=== PATIENT | male | born 1970 | race Caucasian/White ===

== ENCOUNTER 2020-03-28 06:48 | Outpatient (NON) | payer BC, SELFPAY ==
[2020-03-29 21:43] LABS: SARS-CoV-2 RNA PCR Positive
== END 2020-03-28 06:49 ==
LOC: ANHCOVIDDT 06:59
PROVIDERS: PCP Family Medicine; Visit Provider Nurse Practitioner Family
DX: U07.1 COVID-19 (principal)
CPT/HCPCS: 87635; C9803; U0003

== ENCOUNTER 2020-03-29 15:01 | Emergency (ER) | payer BC, SELFPAY ==
--- NOTE | ~2020-03-29 | CT_ITS ---
EXAMINATION: CTA chest PE protocol EXAM DATE: 03/29/2020 18:39 INDICATION: Shortness of breath and elevated d-dimer. TECHNIQUE: Spiral CTA of the chest (pulmonary arteries) was performed with 100 cc Omnipaque 350 intr avenous contrast injection. Images were acquired during the pulmonary arterial phase. Coronal maxi mum intensity projection 3D-reconstructions were created by the technologist on dedicated workstation . Axial, coronal and sagittal reformatted images were reviewed. The dose-length product (DLP) for t his examination was 416.89 mGy-cm. The exposure was tailored according to patient size (auto mA exp osure control), and iterative reconstruction (ASIR) was used as additional dose reduction technique. There is no prior study for comparison. FINDINGS: There are no pulmonary emboli in the 1st through 3rd order (central and interlobar) pulmon adrian arteries. Some loss of attenuation in the segmental pulmonary arteries due to respiratory motion , but no intraluminal filling defects suspected. No thoracic aortic dissection. There are patchy b ilateral groundglass opacities most consistent with acute infectious process. Could be acute lung inj ury from SARS-CoV-2 There are no pleural or pericardial effusions. Tracheobronchial tree is patent . There is no mediastinal, hilar or axillary lymphadenopathy. There is no pneumothorax. Heart n ormal in size. No evidence of coronary arterial calcification. Upper abdomen is unremarkable. Th ere is thoracic spondylosis without osteoblastic or osteolytic lesions identified. Old rib fractures. IMPRESSION: 1. Limited segmental evaluation, but no pulmonary emboli are suspected. 2. Patchy bilateral groundglass airspace disease, appearance suspicious for COVID-19. Reviewed, dictated and finalized at location A. IMPRESSION: 1. Limited segmental evaluation, but no pulmonary emboli are suspected. 2. Patchy bilateral groundglass airspace disease, appearance suspicious for CO VID-19.
--- NOTE | ~2020-03-29 | XR_ITS ---
XR chest 1V portable 03/29/2020 16:06 Indication: Cough and fever. Headache. Procedure: AP portable chest Comparison: Comparison to multiple prior studies sequentially, with oldest reviewed study dated 08/18. Findings: Linear infiltrates of the left lower lung zone. Heart size upper normal. Low lung volumes. Right lung clear. No pneumothorax or pleural effusion. Impression: 1: Linear left basilar infiltrates, atelectasis versus pneumonia. Reviewed, dictated and finalized at location B. Impression: 1: Linear left basilar infiltrates, atelectasis versus pneumonia.
[2020-03-29 15:13] VITALS: BP 123/82; PULSE 106; RESP 18; TEMP 36.7; O2SAT 98
--- NOTE | 2020-03-29 15:45 | ECG_ITS ---
Measurements Intervals [place] Rate: 105 P: 0 LA: 100 QRS: -25 QRSD: 78 T: 31 QT: 309 QTc: 408 Interpretive Statements SINUS TACHYCARDIA WITH SHORT LA INTERVAL RSR' IN V1 OR V2, PROBABLY NORMAL VARIANT ABNORMAL ECG Electronically Signed On 03-30-2020 6:58:23 CDT by Darnell Joe D.O.
--- NOTE | 2020-03-29 15:46 | ED.GENADULT ---
HPI - General Adult General Chief complaint: Unspecified Stated complaint: COVID Symptoms, Cough Time Seen by Provider: 03/29/20 15:28 History of Present Illness HPI narrative: Patient is a 50-year-old male complaining of shortness of breath, fever, body aches started approximately 4 days ago. Patient states that he is been exposed to Covid and he was recently tested pending results. Patient states that his mother tested positive for Covid approximately 1 week ago. Related Data Allergies Allergy/AdvReac Type Severity Reaction Status Date / Time No Known Allergies Allergy Verified 03/16/20 08:54 Review of Systems Review of Systems: All systems reviewed & are unremarkable except as noted in HPI and below Constitutional: Constitutional: Denies body ache(s), Denies chills, Denies excessive sweating, Denies fatigue, Denies fever(s), Denies headache(s), Denies lethargy, Denies malaise, Denies weakness and Denies weight loss Eyes: Eyes: Denies blurry vision, Denies change in vision and Denies loss of vision ENT: Denies dizziness, Denies ear discharge, Denies headache(s), Denies lip swelling, Denies epistaxis, Denies nasal congestion, Denies neck pain, Denies throat swelling and Denies tongue swelling Cardiovascular: Cardiovascular: Denies chest pain, Denies chest pain at rest, Denies chest pain with activity, Denies diaphoresis, Denies rapid heart rate, Denies edema, Denies irregular heart rhythm, Denies lightheadedness, Denies palpitations, Denies dyspnea and Denies dyspnea on exertion Respiratory: Respiratory: Denies hemoptysis Gastrointestinal: Gastrointestinal: Denies abdominal pain, Denies melena, Denies hematochezia, Denies diarrhea, Denies nausea, Denies vomiting and Denies hematemesis Musculoskeletal: Musculoskeletal: Denies abnormal gait, Denies deformity, Denies joint swelling, Denies limited range of motion, Denies neck pain and Denies numbness Neurologic: Denies Abnormal speech present, Denies abnormal gait, Denies confusion, Denies dizziness, Denies headache(s), Denies focal weakness, Denies loss of vision, Denies numbness, Denies Other visual disturbances, Denies Sensory deficit (Neuro) and Denies weakness Psychiatric: Psychiatric: Denies confusion, Denies depression, Denies auditory hallucinations, Denies homicidal ideation and Denies suicidal ideation Endocrine: Endocrine: Denies cold intolerance, Denies excessive sweating, Denies fatigue, Denies heat intolerance and Denies palpitations Hematologic/Lymphatic: Hematologic/Lymphatic: Denies easy bleeding and Denies easy bruising Allergic/Immunologic: Allergic/Immunologic: Denies lip swelling, Denies throat swelling and Denies tongue swelling PMFSH Family History Family History Mother Family history of obesity Hypertension Family history of elevated blood lipids Family history of diabetes mellitus in first degree relative Family history of hyperthyroidism Diabetes mellitus Cerebrovascular accident Father Hypertension Family history of elevated blood lipids Other Carcinoma of colon Social History Social History Smoking status: Never smoker Second hand tobacco smoke exposure: No Alcohol intake: never Substance use: never Substance use type: does not use Gender identity (if verbalized by the patient): Male Exam Const: General: cooperative, healthy appearing, comfortable, no acute distress, well developed, alert and awake; No confusion Orientation/consciousness: oriented to person, oriented to place, oriented to time, patient oriented x3 and No confusion Limitations: no limitations HENMT: Head: normal to inspection, normocephalic and atraumatic Ears: hearing grossly normal bilaterally, TM normal on the right and TM normal on the left General nose exam: Normal external nose present, Normal nares present and No nasal discharge prese
[2020-03-29 16:23] LABS: Basophils Percent Auto 0.5 % (0.2-1.2); Hematocrit 43.7 % (42.0-52.0); Hemoglobin 14.7 g/dL (14.0-18.0); Immature Granulocyte Absolute 0.01 K/mm3 (0.00-0.031); Immature Granulocyte Percent A 0.2 % (0-0.5); Lymphocytes Absolute Auto 1.08 K/mm3 (0.9-3.2); Lymphocytes Percent Auto 25.1 % (18.3-44.2); Mean Corpuscular HGB Conc 33.6 g/dl (32-36); Mean Corpuscular Hemoglobin 32.2 pg (26-34); Mean Corpuscular Volume 95.6 fl (80-100); Mean Platelet Volume 10.9 fl (7.4-10.4); Monocytes Absolute Auto 0.5 K/mm3 (0.1-0.6); Monocytes Percent Auto 10.7 % (2.6-8.5); Neutrophils Absolute Auto 2.7 K/mm3 (1.3-6.7); Neutrophils Percent Auto 63.5 % (45.5-73.1); Platelet Count Result 162 k/mm3 (150-375); Red Blood Count 4.57 M/mm3 (4.6-6.20); Red Cell Distribution Width 12.2 % (11.5-14.5); White Blood Count 4.3 K/mm3 (4.5-10.0)
[2020-03-29 16:36] LABS: Alanine Aminotransferase 24 U/L (4-50); Albumin Level 4.2 g/dL (3.5-5.1); Alkaline Phosphatase 76 U/L (38-126); Anion Gap 13 mmol/L (8-16); Aspartate Amino Transferase 43 U/L (17-59); Bilirubin,Total 0.4 mg/dL (0.2-1.3); Blood Urea Nitrogen 26 mg/dL (9-20); Calcium 8.9 mg/dL (8.4-10.2); Carbon Dioxide 26 mmol/L (22-30); Chloride 100 mmol/L (98-107); Estimated CRCL calculation 58 ml/min; Estimated Glomerular Filt Rate 40; Glucose 114 mg/dL (75-110); Potassium 4.4 mmol/L (3.4-5.0); Sodium 139 mmol/L (137-145)
[2020-03-29 16:41] LABS: D Dimer 0.64 ug/mL (<0.48)
[2020-03-29 16:48] LABS: Troponin I < 0.012 ng/mL (0.000-0.034)
[2020-03-29 18:00] VITALS: BP 110/78; PULSE 70; RESP 16; O2SAT 98
[2020-03-29 19:35] VITALS: BP 117/73; PULSE 94; RESP 16; TEMP 36.8; O2SAT 99
[2020-03-29] MEDS: LACTATED RINGERS 1,000 ML 999 ML IV CONT (19:35)
[2020-03-29 20:26] VITALS: BP 128/73; PULSE 87; RESP 16; TEMP 36.9; O2SAT 100
== END 2020-03-29 20:36 | disposition home or self-care (01) ==
PROVIDERS: Emergency Provider Emergency Medicine; PCP Family Medicine
DX: U07.1 COVID-19 (principal); J12.89 Other viral pneumonia
CPT/HCPCS: 36415; 71045; 71275; 80053; 84484; 85025; 85380; 93005; 96360; 99284; J7120; Q9967

== ENCOUNTER 2020-04-04 17:22 | Inpatient (IN) | payer BC, SELFPAY ==
[2020-04-04] VITALS (26 sets, daily range): BP systolic 101–147; BP diastolic 61–86; PULSE 86–130; RESP 21–40; TEMP 37.9; O2SAT 67–97; BMI 31.4
--- NOTE | ~2020-04-04 | XR_ITS ---
EXAMINATION: XR chest 1V portable INDICATION: Shortness of breath, COVID 19 pneumonia TECHNIQUE: Portable AP chest at 0519 hours COMPARISON: 04/09/2020 FINDINGS: Diffuse opacities persist in all lung zones with interval worsening. A right upper extremit y PICC ends with its tip in the proximal right atrium. There is no pleural effusion or pneumothorax. The cardiomediastinal silhouette is stable. Healed left-sided rib fractures are again noted. IMPRESSION: 1. Diffuse lung disease with interval worsening, consistent with pneumonia and/or pulmonary edema and /or acute respiratory distress syndrome (ARDS). Reviewed, dictated and finalized at location A. TRUCK DRIVER IMPRESSION: 1. Diffuse lung disease with interval worsening, consistent with pneumonia and/ or pulmonary edema and/or acute respiratory distress syndrome (ARDS).
--- NOTE | ~2020-04-04 | CT_ITS ---
EXAMINATION: CTA chest PE protocol DATE: 04/04/2020 19:45 CDT INDICATION: Elevated d-dimer. Shortness of breath. TECHNIQUE: Computed tomography angiography (CTA) of the chest was performed with 100 mL Omnipaque-350 intravenous contrast timed to evaluate the pulmonary arteries. Coronal maximum intensity projection 3D-reconstructions were created by the technologist. The dose-length product was 485.90 mGy-cm. COMPARISON: CTA chest dated 03/29/2020. FINDINGS: Study significantly limited by motion artifact and timing of contrast bolus. No large centr al pulmonary embolism. Heart size normal. No significant pleural or pericardial effusion. Extensive patchy bilateral groundglass attenuation with mosaic pattern. Findings have significantly p rogressed since prior examination, consistent with pneumonia. No evidence for aortic aneurysm or diss ection. Mild mediastinal lymphadenopathy, likely reactive. The upper abdomen is unremarkable. Gallbla dder is present. IMPRESSION: 1. Significant progression of extensive patchy bilateral groundglass attenuation with mosaic pattern, consistent with pneumonia. 2: Study limited for evaluation of peripheral pulmonary embolism due to motion and contrast bolus ti jose. No large central pulmonary emboli. 3: Mediastinal lymphadenopathy, likely reactive. Reviewed, dictated and finalized at location A. IMPRESSION: 1. Significant progression of extensive patchy bilateral groundglass attenuatio n with mosaic pattern, consistent with pneumonia. 2: Study limited for evaluation of peripheral pulmonary embolism due to motion and contrast bolus timing. No large central pulmonary emboli. 3: Mediastinal lymphadenopathy, likely reactive.
--- NOTE | ~2020-04-04 | XR_ITS ---
EXAMINATION: XR chest 1V portable INDICATION: COVID 19 PNEUMONIA, SHORTNESS OF BREATH TECHNIQUE: Portable AP chest at 0509 hours COMPARISON: 04/06/2020 FINDINGS: Diffuse bilateral airspace opacities, worst in the left mid and lower lung zones, persist w ithout significant change. There is no pleural effusion or pneumothorax. The cardiomediastinal silhou ette is stable. Healed bilateral rib fractures are noted. IMPRESSION: 1. Unchanged diffuse lung disease, consistent with pneumonia. Reviewed, dictated and finalized at location A.
--- NOTE | ~2020-04-04 | XR_ITS ---
EXAMINATION: XR chest 1V portable DATE: 04/24/2020 05:36 INDICATION: COVID-19 pneumonia. TECHNIQUE: A single frontal view of the chest was obtained. COMPARISON: Chest single view 04/23/2020 FINDINGS: There are patchy airspace opacities throughout the lungs bilaterally. No pleural effusion o r pneumothorax. The heart size is normal. The endotracheal tube tip is 4.8 cm above the jian. The n asogastric tube tip is in the stomach. A right upper extremity peripherally inserted central venous c atheter (PICC) is seen with tip at the superior cavoatrial junction. There are multiple old healed ri b fractures bilaterally. IMPRESSION: 1. Stable diffuse lung disease, consistent with pneumonia versus acute respiratory distress syndrome (ARDS). Reviewed, dictated and finalized at location A. ENE WASHER OPERATOR IMPRESSION: 1. Stable diffuse lung disease, consistent with pneumonia versus acute respirat ory distress syndrome (ARDS).
--- NOTE | ~2020-04-04 | XR_ITS ---
EXAMINATION: XR chest 1V portable EXAM DATE: 04/28/2020 00:42 INDICATION: low oxygenation . Respiratory failure. TECHNIQUE: Portable AP frontal chest x-ray was obtained. Comparison is made to prior examination from 04/27/2020. FINDINGS: Endotracheal tube tip is 5 centimeters above the jian (ideal range is between 2 to 5 cm). There is a nasogastric tube seen with tip collimated off the study, but below the left hemidiaphrag m. There is a right-sided PICC line with tip projecting over the cavoatrial junction. Extensive bilateral ill-defined acute airspace disease with regions of confluence, appearance is cons istent with COVID-19 pneumonia. There are no sizable pleural effusions. There is no pneumothorax s uspected. The cardiomediastinal silhouette is prominent but magnified on this AP technique. The b ones and soft tissues are unremarkable. There is no significant interval change compared to prior exam. IMPRESSION: 1. Line(s) and tube(s) in position. 2. Extensive airspace disease unchanged. Reviewed, dictated and finalized at location A. CTOR SAFETY
--- NOTE | ~2020-04-04 | XR_ITS ---
EXAMINATION: XR chest 1V portable EXAM DATE: 04/22/2020 17:19 INDICATION: low oxygen saturation . COVID-19. TECHNIQUE: Portable AP frontal chest x-ray was obtained. Comparison is made to prior examination from yesterday. FINDINGS: Endotracheal tube tip is 5 centimeters above the jian (ideal range is between 2 to 5 cm). There is a right-sided PICC line with tip projecting over the cavoatrial junction. There is a nasog astric tube seen with tip collimated off the study, but below the left hemidiaphragm. Diffuse bilateral ill-defined acute airspace disease. Appearance is consistent with COVID-19. There a re no sizable pleural effusions. There is no pneumothorax suspected. The cardiomediastinal silhou ette is prominent but magnified on this AP technique. Old bilateral rib fractures. There is no significant interval change compared to prior exam. IMPRESSION: 1. Line(s) and tube(s) in position. 2. Stable airspace disease and other findings as above. Reviewed, dictated and finalized at location A. HER INSTRUMENTAL
--- NOTE | ~2020-04-04 | US_ITS ---
EXAMINATION: US right upper quadrant DATE: 04/27/2020 08:57 INDICATION: Abnormal liver function tests. TECHNIQUE: Multiple grayscale and Doppler ultrasound images of the abdomen were obtained. COMPARISON: Chest CT 03/27/2020 FINDINGS: The visualized portions of the head and body of the pancreas are normal. The liver is danita l without focal lesion. There is normal flow in main portal vein. The gallbladder is normal in size. No gallstones or gallbladder wall thickening. The common duct is normal and measures 1 mm. IMPRESSION: 1. Normal right upper quadrant ultrasound. Reviewed, dictated and finalized at location A. NT EXECUTIVE
--- NOTE | ~2020-04-04 | XR_ITS ---
EXAMINATION: XR chest 1V portable EXAM DATE: 04/20/2020 06:36 INDICATION: Respiratory failure. COVID-19. TECHNIQUE: Portable AP frontal chest x-ray was obtained. Comparison is made to prior examination from 04/19, 04/17. FINDINGS: Endotracheal tube tip is 4-5 centimeters above the jian (ideal range is between 2 to 5 cm ). There is a right-sided PICC line with tip projecting over the cavoatrial junction. There is a n asogastric tube seen with tip collimated off the study, but below the left hemidiaphragm. Diffuse reticular-nodular opacities, likely infection given history provided. There are no sizable p leural effusions. There is no pneumothorax suspected. The cardiomediastinal silhouette is promine nt but magnified on this AP technique. The bones and soft tissues are unremarkable. There is no significant interval change compared to prior exam. IMPRESSION: 1. Tubes, line in position. 2. Extensive reticular nodular opacities likely acute infectious process. R CUP MACHINE TENDER Reviewed, dictated and finalized at location A.
--- NOTE | ~2020-04-04 | XR_ITS ---
EXAMINATION: XR chest ET placement DATE: 04/17/2020 16:52 INDICATION: Intubation. COVID-19 pneumonia. TECHNIQUE: A single frontal view of the chest was obtained. COMPARISON: Chest single view 04/17/2020 at 5:33 AM, chest CT 03/27/2020 FINDINGS: There are airspace and interstitial opacities involving all lung zones bilaterally. No pleu ral effusion or pneumothorax. The heart size is normal. The endotracheal tube tip is 4.5 cm above the jian. The nasogastric tube tip is beyond the inferior margin of the radiograph, but at least to th e stomach. A right upper extremity peripherally inserted central venous catheter (PICC) is seen with tip at the superior cavoatrial junction. There are old healed left rib fractures. IMPRESSION: 1. Stable diffuse lung disease, consistent with pneumonia. Reviewed, dictated and finalized at location B. ECTIVE THERAPY AIDE
--- NOTE | ~2020-04-04 | XR_ITS ---
EXAMINATION: XR chest 1V portable EXAM DATE: 04/16/2020 06:20 INDICATION: Respiratory failure. COVID-19. TECHNIQUE: Portable AP frontal chest x-ray was obtained. Comparison is made to prior examination from 04/11/2020. FINDINGS: There is a right-sided PICC line with tip projecting over the cavoatrial junction. Diffuse reticular-nodular opacities with relative sparing of the left upper lobe, likely infection gi marilu history provided. There are no sizable pleural effusions. There is no pneumothorax suspected. The cardiomediastinal silhouette is prominent but magnified on this AP technique. The bones and s oft tissues are unremarkable. There is no significant interval change compared to prior exam. IMPRESSION: 1. Rather extensive reticular nodular opacities likely acute infectious process. Reviewed, dictated and finalized at location A. ATIONS OFFICER AFLOAT IMPRESSION: 1. Rather extensive reticular nodular opacities likely acute infectious proces s.
--- NOTE | ~2020-04-04 | XR_ITS ---
EXAMINATION: XR chest 1V portable INDICATION: Shortness of breath, COVID 19 pneumonia TECHNIQUE: Portable AP chest at 0521 hours COMPARISON: 04/10/2020 FINDINGS: Diffuse airspace opacities persist in all lung zones with slight improvement. A right upper extremity PICC ends with its tip in the proximal right atrium. There is no pleural effusion or pneum othorax. The cardiomediastinal silhouette is stable. There are healed rib fractures. IMPRESSION: 1. Diffuse lung disease with slight improvement, consistent with pneumonia and/or pulmonary edema and /or acute respiratory distress syndrome (ARDS). Reviewed, dictated and finalized at location A. T OFFICE ASSOCIATE IMPRESSION: 1. Diffuse lung disease with slight improvement, consistent with pneumonia and/ or pulmonary edema and/or acute respiratory distress syndrome (ARDS).
--- NOTE | ~2020-04-04 | XR_ITS ---
EXAMINATION: XR chest 1V portable DATE: 04/06/2020 09:27 INDICATION: COVID-19 pneumonia. TECHNIQUE: A single frontal view of the chest was obtained. COMPARISON: Chest single view 04/04/2020, chest CT 04/04/2020 FINDINGS: There are patchy airspace opacities in all lung zones bilaterally with a peripheral predomi nance, worst in the right lower lung zone and left mid and mid and lower lung zones. No pleural effus ion or pneumothorax. The heart size is normal. There are old healed bilateral rib fractures. IMPRESSION: 1. Stable diffuse lung disease, consistent with pneumonia. Reviewed, dictated and finalized at location A.
--- NOTE | ~2020-04-04 | XR_ITS ---
EXAMINATION: XR chest 1V portable EXAM DATE: 04/17/2020 06:20 INDICATION: Respiratory failure. COVID-19. TECHNIQUE: Portable AP frontal chest x-ray was obtained. Comparison is made to prior examination from , 04/16/2020 04/11/2020. FINDINGS: There is a right-sided PICC line with tip projecting over the cavoatrial junction. Diffuse reticular-nodular opacities with relative sparing of the left upper lobe, likely infection gi marilu history provided. There are no sizable pleural effusions. There is no pneumothorax suspected. The cardiomediastinal silhouette is prominent but magnified on this AP technique. The bones and s oft tissues are unremarkable. There is no significant interval change compared to prior exam. IMPRESSION: 1. Rather extensive reticular nodular opacities likely acute infectious process. GER CONTRACT Reviewed, dictated and finalized at location A. IMPRESSION: 1. Rather extensive reticular nodular opacities likely acute infectious proces s.
--- NOTE | ~2020-04-04 | XR_ITS ---
XR chest 1V portable 04/04/2020 18:20 Indication: Shortness of breath and cough. Positive test for Covid on 03/27/2020. Procedure: AP portable chest Comparison: Comparison to multiple prior studies sequentially, with oldest reviewed study dated 09/22. Findings: Interval development of extensive airspace disease of the upper, mid and lower lung zones s jayne prior examination. Stable cardiomediastinal silhouette allowing for technique. No pneumothorax. Impression: 1: Interval development of extensive bilateral airspace disease which may reflect pneumonia and/or ed amy. Reviewed, dictated and finalized at location A. Impression: 1: Interval development of extensive bilateral airspace disease which may refle ct pneumonia and/or edema.
--- NOTE | ~2020-04-04 | XR_ITS ---
EXAMINATION: XR chest 1V portable INDICATION: COVID 19 pneumonia TECHNIQUE: Portable AP chest at 0606 hours COMPARISON: 04/08/2020 FINDINGS: Diffuse airspace opacities persist in all lung zones without significant change. A right up per extremity PICC ends with its tip in the proximal right atrium. There is no pleural effusion or pn eumothorax. The cardiomediastinal silhouette is normal. Healed left-sided rib fractures are noted. IMPRESSION: 1. Diffuse lung disease without significant change, consistent with pneumonia and/or pulmonary edema and/or acute respiratory distress syndrome (ARDS). Reviewed, dictated and finalized at location A. ER HAND IMPRESSION: 1. Diffuse lung disease without significant change, consistent with pneumonia a nd/or pulmonary edema and/or acute respiratory distress syndrome (ARDS).
--- NOTE | ~2020-04-04 | XR_ITS ---
EXAMINATION: XR chest 1V portable INDICATION: Respiratory failure, endotracheal tube placement TECHNIQUE: Portable AP chest at 0715 hours COMPARISON: 04/20/2020 FINDINGS: The endotracheal tube ends approximately 5.7 cm above the jian. The nasogastric tube is f ollowed as far as the stomach. Its tip is beyond the inferior margin of the radiograph. A right upper extremity PICC ends with its tip in the distal superior vena cava. Diffuse bilateral interstitial an d airspace opacities persist without significant change. Healed right-sided rib fractures are noted. IMPRESSION: 1. Stable diffuse lung disease, consistent with pneumonia and/or pulmonary edema and/or acute respira tory distress syndrome (ARDS). Reviewed, dictated and finalized at location A. LLECTUAL PROPERTY MANAGER IMPRESSION: 1. Stable diffuse lung disease, consistent with pneumonia and/or pulmonary eliza a and/or acute respiratory distress syndrome (ARDS).
--- NOTE | ~2020-04-04 | XR_ITS ---
XR chest PICC line 04/07/2020 16:30 Indication: PICC line placement. Covid Pneumonia. Procedure: AP portable chest Comparison: Comparison to multiple prior studies sequentially, with oldest reviewed study dated 03/09. Findings: There are infiltrates of the mid and lower lung zones. Serial images demonstrate placement of a PICC line, last image taken at 4:20 PM demonstrates PICC line tip in the SVC near the cavoatrial junction. Stable cardiomediastinal silhouette. No pneumothorax. No acute osseous abnormality. Impression: 1: Persistent patchy bilateral infiltrates predominantly affecting the mid and lower lung zones, cons istent with pneumonia. Reviewed, dictated and finalized at location A. Impression: 1: Persistent patchy bilateral infiltrates predominantly affecting the mid and lower lung zones, consistent with pneumonia.
--- NOTE | ~2020-04-04 | XR_ITS ---
EXAMINATION: XR chest 1V portable DATE: 04/26/2020 06:08 INDICATION: COVID-19 pneumonia. Acute respiratory failure. TECHNIQUE: A single frontal view of the chest was obtained. COMPARISON: Chest single view 04/25/2020 FINDINGS: There are airspace and interstitial opacities throughout the lungs bilaterally. No pleural effusion or pneumothorax. The heart size is obscured. The endotracheal tube tip is 4.8 cm above the c monty. A right upper extremity peripherally inserted central venous catheter (PICC) is seen with tip at the superior cavoatrial junction. The nasogastric tube tip is beyond the inferior margin of the ra diograph, but at least to the stomach. There are old healed rib fractures bilaterally. IMPRESSION: 1. Stable severe diffuse lung disease, consistent with pneumonia versus acute respiratory distress sy ndrome (ARDS). Reviewed, dictated and finalized at location A. CENTER TRAINER IMPRESSION: 1. Stable severe diffuse lung disease, consistent with pneumonia versus acute r espiratory distress syndrome (ARDS).
--- NOTE | ~2020-04-04 | XR_ITS ---
EXAMINATION: XR chest 1V portable DATE: 04/25/2020 06:09 INDICATION: COVID-19 pneumonia. Acute respiratory failure. TECHNIQUE: A single frontal view of the chest was obtained. COMPARISON: Chest single view 04/24/2020 FINDINGS: There are interstitial opacities and patchy airspace opacities throughout the lungs bilater ally. No pleural effusion or pneumothorax. The heart size is normal. The endotracheal tube tip is 5.7 cm above the jian. The nasogastric tube tip is beyond the inferior margin of the radiograph, but a t least to the stomach. A right upper extremity peripherally inserted central venous catheter (PICC) is seen with tip at the superior cavoatrial junction. There are multiple old healed bilateral rib fra ctures. IMPRESSION: 1. Stable severe diffuse lung disease, consistent with pneumonia versus acute respiratory distress sy ndrome (ARDS). Reviewed, dictated and finalized at location A. OR ELECTRICAL DESIGN ENGINEER IMPRESSION: 1. Stable severe diffuse lung disease, consistent with pneumonia versus acute r espiratory distress syndrome (ARDS).
--- NOTE | ~2020-04-04 | XR_ITS ---
EXAMINATION: XR chest 1V portable DATE: 04/27/2020 06:13 INDICATION: COVID-19 pneumonia. Acute respiratory failure. TECHNIQUE: A single frontal view of the chest was obtained. COMPARISON: Chest single view 04/26/2020 FINDINGS: The patient is rotated to his left. There are airspace opacities throughout the lungs bilat erally. No pleural effusion or pneumothorax. The heart size is normal. The endotracheal tube tip is 5 .0 cm above the jian. A nasogastric tube tip is in the stomach. A right upper extremity peripherall y inserted central venous catheter (PICC) is seen with tip at superior cavoatrial junction. There are old healed rib fractures bilaterally. IMPRESSION: 1. Stable diffuse lung disease, consistent with pneumonia versus acute respiratory distress syndrome (ARDS). Reviewed, dictated and finalized at location A. ETING ROTATION ASSOCIATE IMPRESSION: 1. Stable diffuse lung disease, consistent with pneumonia versus acute respirat ory distress syndrome (ARDS).
--- NOTE | ~2020-04-04 | XR_ITS ---
EXAMINATION: XR chest 1V portable DATE: 04/23/2020 05:40 INDICATION: COVID-19 pneumonia. TECHNIQUE: A single frontal view of the chest was obtained. COMPARISON: Chest single view 04/22/2020, chest CT 04/04/2020 FINDINGS: There are patchy airspace opacities involving all lung zones bilaterally. No pleural effusi on or pneumothorax. The heart size is normal. The endotracheal tube tip is 5.4 cm above the jian. T he nasogastric tube tip is beyond the inferior margin of the radiograph, but at least to the stomach. A right upper extremity peripherally inserted central venous catheter (PICC) is seen with tip at the superior cavoatrial junction. There are multiple old healed bilateral rib fractures. IMPRESSION: 1. Stable diffuse lung disease, consistent with pneumonia versus acute respiratory distress syndrome (ARDS). Reviewed, dictated and finalized at location A. GRINDER IMPRESSION: 1. Stable diffuse lung disease, consistent with pneumonia versus acute respirat ory distress syndrome (ARDS).
--- NOTE | ~2020-04-04 | XR_ITS ---
EXAMINATION: XR chest 1V portable INDICATION: COVID 19 pneumonia, shortness of breath TECHNIQUE: Portable AP chest at 0547 hours COMPARISON: 04/07/2020 FINDINGS: Diffuse airspace opacities persist with worsening in all lung zones. There is no pleural ef fusion or pneumothorax. A right upper extremity PICC ends with its tip in the proximal right atrium. The cardiomediastinal silhouette is stable. IMPRESSION: 1. Diffuse lung disease with interval worsening, consistent with pneumonia and/or pulmonary edema and /or acute respiratory distress syndrome (ARDS). Reviewed, dictated and finalized at location A. TRY DEBEAKER IMPRESSION: 1. Diffuse lung disease with interval worsening, consistent with pneumonia and/ or pulmonary edema and/or acute respiratory distress syndrome (ARDS).
--- NOTE | ~2020-04-04 | XR_ITS ---
EXAMINATION: XR abdomen NG/feed tube insert DATE: 04/17/2020 16:52 INDICATION: Orogastric tube placement. TECHNIQUE: A semiupright view of the abdomen was obtained. COMPARISON: Abdomen radiographs 04/18/2014 FINDINGS: The lower abdomen is excluded. There are no dilated loops of bowel. The nasogastric tube ti p is in the stomach. IMPRESSION: 1. Nasogastric tube tip in the stomach. Reviewed, dictated and finalized at location B. CAST TECHNICIAN
--- NOTE | ~2020-04-04 | XR_ITS ---
EXAMINATION: XR chest 1V portable EXAM DATE: 04/18/2020 06:24 INDICATION: Respiratory failure. COVID-19. TECHNIQUE: Portable AP frontal chest x-ray was obtained. Comparison is made to prior examination from 04/17, 04/16/2020. FINDINGS: Endotracheal tube tip is 4 centimeters above the jian (ideal range is between 2 to 5 cm). There is a right-sided PICC line with tip projecting over the cavoatrial junction. There is a mike ogastric tube seen with tip collimated off the study, but below the left hemidiaphragm. Diffuse reticular-nodular opacities, likely infection given history provided. There are no sizable p leural effusions. There is no pneumothorax suspected. The cardiomediastinal silhouette is promine nt but magnified on this AP technique. The bones and soft tissues are unremarkable. There is no significant interval change compared to prior exam. IMPRESSION: 1. Tubes, line in position. 2. Extensive reticular nodular opacities likely acute infectious process. Reviewed, dictated and finalized at location A. AIGN MANAGER
--- NOTE | ~2020-04-04 | XR_ITS ---
EXAMINATION: XR chest 1V portable EXAM DATE: 04/19/2020 06:10 INDICATION: Respiratory failure. COVID-19. TECHNIQUE: Portable AP frontal chest x-ray was obtained. Comparison is made to prior examination from 04/18. FINDINGS: Endotracheal tube tip is 4-5 centimeters above the jian (ideal range is between 2 to 5 cm ). There is a right-sided PICC line with tip projecting over the cavoatrial junction. There is a n asogastric tube seen with tip collimated off the study, but below the left hemidiaphragm. Diffuse reticular-nodular opacities, likely infection given history provided. There are no sizable p leural effusions. There is no pneumothorax suspected. The cardiomediastinal silhouette is promine nt but magnified on this AP technique. The bones and soft tissues are unremarkable. There is no significant interval change compared to prior exam. IMPRESSION: 1. Tubes, line in position. 2. Extensive reticular nodular opacities likely acute infectious process. Reviewed, dictated and finalized at location A. SING GUARD
[2020-04-04 17:45] LABS: Basophils Percent Auto 0.3 % (0.2-1.2); Eosinophils Absolute Auto 0.1 K/mm3 (0-0.3); Eosinophils Percent Auto 0.8 % (0-4.4); Hematocrit 41.1 % (42.0-52.0); Hemoglobin 13.9 g/dL (14.0-18.0); Immature Granulocyte Absolute 0.05 K/mm3 (0.00-0.031); Immature Granulocyte Percent A 0.7 % (0-0.5); Lymphocytes Absolute Auto 0.76 K/mm3 (0.9-3.2); Lymphocytes Percent Auto 10.2 % (18.3-44.2); Mean Corpuscular HGB Conc 33.8 g/dl (32-36); Mean Corpuscular Hemoglobin 32.3 pg (26-34); Mean Corpuscular Volume 95.4 fl (80-100); Mean Platelet Volume 11.2 fl (7.4-10.4); Monocytes Absolute Auto 0.2 K/mm3 (0.1-0.6); Monocytes Percent Auto 3.2 % (2.6-8.5); Neutrophils Absolute Auto 6.4 K/mm3 (1.3-6.7); Neutrophils Percent Auto 84.8 % (45.5-73.1); Platelet Count Result 291 k/mm3 (150-375); Red Blood Count 4.31 M/mm3 (4.6-6.20); Red Cell Distribution Width 12.5 % (11.5-14.5); White Blood Count 7.5 K/mm3 (4.5-10.0)
--- NOTE | 2020-04-04 17:55 | ECG_ITS ---
Measurements Intervals [place] Rate: 123 P: 43 DE: 124 QRS: -8 QRSD: 82 T: 61 QT: 295 QTc: 424 Interpretive Statements SINUS TACHYCARDIA ABNORMAL ECG Electronically Signed On 04-04-2020 19:14:12 CDT by Darnell Joe D.O.
[2020-04-04 17:57] LABS: Alanine Aminotransferase 125 U/L (4-50); Albumin Level 3.9 g/dL (3.5-5.1); Alkaline Phosphatase 179 U/L (38-126); Anion Gap 10 mmol/L (8-16); Aspartate Amino Transferase 308 U/L (17-59); Bilirubin,Total 0.8 mg/dL (0.2-1.3); Blood Urea Nitrogen 29 mg/dL (9-20); Calcium 9.4 mg/dL (8.4-10.2); Carbon Dioxide 31 mmol/L (22-30); Chloride 96 mmol/L (98-107); Estimated CRCL calculation 63 ml/min; Estimated Glomerular Filt Rate 46; Glucose 151 mg/dL (75-110); Potassium 4.3 mmol/L (3.4-5.0); Sodium 137 mmol/L (137-145)
[2020-04-04 18:03] LABS: Alveolar/Arterial O2 Gradient 197.2 mmHg; Fractional Inspired Oxygen 40 %; HCO3 ABG 23.3 mEq/l (22.0-26.0); Modified Allen's Test Pass; Oxygen Saturation ABG 90.8 % (95.0-100.0); Oxyhemoglobin 88.5 % THb (90.0-100.0); PCO2 ABG 30.3 mmHg (35.0-45.0); PO2 ABG 53.2 mmHg (80.0-100.0); PO2 FiO2 Ratio Arterial Blood 1.33 %; Site Drawn RIGHT RADIAL; Total Hemoglobin 13.7 g/dL (12.0-18.0); pH ABG 7.503 (7.350-7.450)
[2020-04-04] MEDS: SODIUM CHLORIDE 0.9% IV 1,000 ML 999 ML IV CONT (18:03)
[2020-04-04 18:04] LABS: Device NASAL CANNULA
--- NOTE | 2020-04-04 18:13 | PC.NURSE ---
Addendum entered by Nyasia Jackson RN 04/04/20 18:14: Pt was on 4L NC with O2 saturation of 86%. Original Note: Pt's O2 saturation 86% on RA. Pt placed on HF NC by ZEHRA Kerr. Pt's O2 saturation now 94%. PA informed.
--- NOTE | 2020-04-04 18:27 | ED.GENADULT ---
HPI - General Adult General Chief complaint: Shortness of Breath/Dyspnea Stated complaint: SOB Time Seen by Provider: 04/04/20 18:16 Source: patient Mode of arrival: EMS Limitations: no limitations History of Present Illness HPI narrative: Patient with history of hypertension, hypothyroidism, hyperlipidemia presents with chief complaint of shortness of breath that has increasingly worsened today. Patient tested positive for Covid and his symptoms began last Thursday. Patient states his mother also tested positive for Covid. Patient states he has also had intermittent fevers. Patient states that he does not have COPD, asthma or any other pulmonary diseases. Patient states that he does have some cough which she has had throughout the disease process. Related Data Allergies Allergy/AdvReac Type Severity Reaction Status Date / Time No Known Allergies Allergy Verified 04/04/20 17:55 Review of Systems Review of Systems: Narrative: CONSTITUTIONAL: Reports fever denies chills, or sweats. EYES: Denies visual changes, redness, or discharge. ENT: Denies rhinorrhea, congestion, sore throat, or otalgia. CARDIOVASCULAR: Denies chest pain, palpitations, or edema. RESPIRATORY: Reports cough and dyspnea. GASTROINTESTINAL: Denies abdominal pain, nausea, vomiting, or diarrhea. GENITOURINARY: Denies dysuria or hematuria. SKIN: Denies rash or itching. MUSCULOSKELETAL: Denies back pain, myalgia, or joint pain NEUROLOGIC: Denies headache, numbness, dizziness, or weakness. PSYCHIATRIC: Denies anxiety or depression. [facility] Family History Family History Mother Family history of obesity Hypertension Family history of elevated blood lipids Family history of diabetes mellitus in first degree relative Family history of hyperthyroidism Diabetes mellitus Cerebrovascular accident Father Hypertension Family history of elevated blood lipids Other Carcinoma of colon Social History Social History Smoking status: Never smoker Second hand tobacco smoke exposure: No Alcohol intake: never Substance use: never Substance use type: does not use Gender identity (if verbalized by the patient): Male Exam Narrative: Exam Narrative: GENERAL: Patient appears anxious, has been constantly moving and jittery. Patient is slightly diaphoretic. Patient is not cyanotic. HEAD: Normocephalic, atraumatic. EYES: PERRLA and EOMI. ENT: Nares clear, no rhinorrhea or epistaxis. Mucous membranes moist. Oropharynx without tonsillar hypertrophy exudate or other lesions. Bilateral TMs pearly rajan nonbulging NECK: Supple. No adenopathy or masses. No vertebral tenderness or loss of ROM. CHEST: Patient is hyperventilating. Do not hear wheezes or rales in the lungs however there is some decreased air movement diffusely. HEART: Regular rate and rhythm. Normal peripheral pulses. ABDOMEN: Soft, nontender, nondistended, normal active bowel sounds. No bruises noted. EXTREMITIES: No acute changes in ROM. No edema. SKIN: Warm, dry, no rash. NEURO: No focal deficits. Alert and oriented x3. PSYCH: Normal mood and affect. Course Course Emergency Course: 1800: Patient hyperventilating. Encourage patient to slow down his breathing. Patient is on dialysis. He is still hypoxic and 88%. Patient will be placed on 4 L nasal cannula to see how he responds. Dr Lucas has seen patient, workup, imaging and is actively assisting in patient management. 1833: Patient has been placed on high flow oxygen and states that he is much more comfortable. His oxygen saturations have improved to 96%. Patient was still having some hypoventilation so he will be given a small amount of Ativan to help him relax. We will hold off on intubation at this time. 1900: Patient is still feeling more comfortable on nasal oxygen, would like to pause on intubating at this time. Lev
[2020-04-04] MEDS: ALBUTEROL SULFATE NEB 2.5 MG/0.5 ML INH 5 MG INHALATION (18:35)
[2020-04-04 18:37] LABS: D Dimer 2.01 ug/mL (<0.48)
[2020-04-04] MEDS: LORazepam INJ (*CRX) 2 MG/ML VIAL 1 MG IV PUSH (18:39)
[2020-04-04] MEDS: DEXAMETHASONE SOD PHOS INJ 4 MG/ML VIAL 10 MG IV PUSH (18:40)
[2020-04-04 20:02] LABS: Estimated CRCL calculation 67 ml/min; Estimated Glomerular Filt Rate 50
--- NOTE | 2020-04-04 20:52 | PC.NURSE ---
Pt's RR 45, PA aware. RT called for high flow mask. O2 saturation 92% on high flow NC at 7L.
--- NOTE | 2020-04-04 20:55 | PC.NURSE ---
Report called to BIOMEDICAL ENGINEERING TECHNOLOGIST.
[2020-04-04] MEDS: REMDESIVIR 200 MG/NS 250 ML 200 MG/250 ML BAG 250 MG IVPB (21:21)
--- NOTE | 2020-04-04 21:35 | ADMGEN ---
This patient, Avtar Ambrocio, was admitted to Intensive Care Unit-5 on 04/04/2020 at 2105. Patient/family oriented to hospital policies and general routines including ID bracelet, bed and alarms, visiting hours, pain management, procedures, bathroom and other care routines, personal items, smoking policy, room service/diet, and visiting hours. Information on how to activate the Rapid Response Team has been discussed. Patient/Family are encouraged to report perceived risks to care and to ask questions if they do not understand what they are told or what they should do.
--- NOTE | 2020-04-04 21:50 | PM.IMHP ---
H&P: HPI History of Present Illness Date/Time: 04/04/20 21:50 Chief complaint: COVID 19 Pneumonia with Hypoxia Narrative: This is a 50-year-old male with known history of hypertension, hyperlipidemia, and hypothyroidism who presented to the hospital [facility] with increased shortness of breath. The patient is known to test positive for braga virus And reports that his symptoms began approximately 1 week ago. The patient reports fevers, chills, and coughing fits. He denies any significant wheezing, abdominal pain, chest discomfort, palpitations, nausea, vomiting, or lower extremity swelling. The patient does report having diarrhea. The patient was evaluated emergency room and found to be hypoxic on 4 L of oxygen via nasal cannula. Intubation was considered as the patient's work of breathing was increased although the patient want to hold off. High-flow oxygen therapy was initiated and the patient's clinical status improved overall. ABG was obtained which demonstrated hypoxemic respiratory failure. Routine labs demonstrated transaminitis as well as acute renal failure. The patient was treated emergency room with steroid therapy, bronchodilators, and antibiotics. Remdesivir has been ordered by ER provider. Review of Systems Review of Systems: All systems reviewed & are unremarkable except as noted in HPI and below PMFSH Past Medical History Medical History Adult hypothyroidism Benign essential hypertension Chronic GERD Hyperlipidemia Family History Family History Mother Family history of elevated blood lipids Diabetes mellitus Family history of diabetes mellitus in first degree relative Family history of obesity Family history of hyperthyroidism Hypertension Cerebrovascular accident Atrial fibrillation Sleep apnea Father Family history of elevated blood lipids Hypertension Other Carcinoma of colon Social History Social History Smoking status: Never smoker Second hand tobacco smoke exposure: No Alcohol intake: never Substance use: never Substance use type: does not use Gender identity (if verbalized by the patient): Male Spiritual care concerns: Yes (Restorationist) Meds Home Medications and Allergies Home Medications Medication Instructions Recorded Confirmed Type lansoprazole 30 mg delayed 30 mg PO DAILY #90 tablet 03/16/20 04/04/20 Rx release,disintegrating tablet levothyroxine 100 mcg tablet 100 mcg PO DAILY #90 tablet 03/16/20 04/04/20 Rx olmesartan 40 mg tablet 40 mg PO DAILY #90 tablet 03/16/20 04/04/20 Rx pravastatin 40 mg tablet 40 mg PO DAILY #90 tablet 03/16/20 04/04/20 Rx Allergies Allergy/AdvReac Type Severity Reaction Status Date / Time No Known Allergies Allergy Verified 04/04/20 17:55 Vital Signs Vital Signs - 24 hr 04/04/20 17:26 04/04/20 17:27 04/04/20 17:30 Temperature Pulse Rate 128 H 128 H 126 H Respiratory Rate 32 H 36 H 29 H Blood Pressure 138/79 Pulse Oximetry 67 L 84 L 88 L 04/04/20 17:31 04/04/20 17:46 04/04/20 17:47 Temperature Pulse Rate 130 H 122 H 121 H Respiratory Rate 35 H 32 H 33 H Blood Pressure 135/84 147/79 H Pulse Oximetry 87 L 88 L 89 L 04/04/20 17:48 04/04/20 17:53 04/04/20 18:00 Temperature 37.9 C H Pulse Rate 124 H 122 H Respiratory Rate 36 H Blood Pressure 147/79 H Pulse Oximetry 84 L 89 L 04/04/20 18:02 04/04/20 18:15 04/04/20 18:17 Temperature Pulse Rate 127 H 111 H 114 H Respiratory Rate 24 H 32 H 40 H Blood Pressure 101/61 132/75 Pulse Oximetry 80 L 94 93 04/04/20 18:30 04/04/20 18:31 04/04/20 18:45 Temperature Pulse Rate 108 H 112 H 123 H Respiratory Rate 33 H 39 H 34 H Blood Pressure 128/79 Pulse Oximetry 93 93 97 04/04/20 18:46 04/04/20 19:00 04/04/20 19:01 Temperature Pulse Rate 123 H
[2020-04-04 22:51] LABS: Influenza Control Positive
[2020-04-04] MEDS: SODIUM CHLORIDE 0.9% IV 1,000 ML 75 ML IV CONT (23:17)
[2020-04-04] MEDS: guaiFENesin/DEXTROMETHORPHAN 10 ML UDC PO (23:17)
[2020-04-05] VITALS (17 sets, daily range): BP systolic 112–137; BP diastolic 70–82; PULSE 77–156; RESP 20–38; TEMP 36.4–36.7; O2SAT 88–95; BMI 31.4
[2020-04-05] MEDS: LEVOTHYROXINE SODIUM 100 MCG TABLET PO (05:59)
[2020-04-05 06:18] LABS: Basophils Percent Auto 0.4 % (0.2-1.2); Hematocrit 36.5 % (42.0-52.0); Hemoglobin 12.3 g/dL (14.0-18.0); Immature Granulocyte Absolute 0.04 K/mm3 (0.00-0.031); Immature Granulocyte Percent A 0.7 % (0-0.5); Lymphocytes Absolute Auto 0.62 K/mm3 (0.9-3.2); Lymphocytes Percent Auto 11.5 % (18.3-44.2); Mean Corpuscular HGB Conc 33.7 g/dl (32-36); Mean Corpuscular Hemoglobin 31.7 pg (26-34); Mean Corpuscular Volume 94.1 fl (80-100); Mean Platelet Volume 11.6 fl (7.4-10.4); Monocytes Absolute Auto 0.2 K/mm3 (0.1-0.6); Monocytes Percent Auto 3.7 % (2.6-8.5); Neutrophils Absolute Auto 4.5 K/mm3 (1.3-6.7); Neutrophils Percent Auto 83.7 % (45.5-73.1); Platelet Count Result 283 k/mm3 (150-375); Red Blood Count 3.88 M/mm3 (4.6-6.20); Red Cell Distribution Width 12.5 % (11.5-14.5); White Blood Count 5.4 K/mm3 (4.5-10.0)
[2020-04-05 06:30] LABS: Potassium 4.8 mmol/L (3.4-5.0)
[2020-04-05 06:37] LABS: Alanine Aminotransferase 99 U/L (4-50); Anion Gap 9 mmol/L (8-16); Blood Urea Nitrogen 22 mg/dL (9-20); Calcium 8.7 mg/dL (8.4-10.2); Carbon Dioxide 29 mmol/L (22-30); Chloride 104 mmol/L (98-107); Estimated CRCL calculation 77 ml/min; Estimated Glomerular Filt Rate > 60; Glucose 167 mg/dL (75-110); Magnesium 2.4 mg/dL (1.6-2.3); Sodium 142 mmol/L (137-145)
[2020-04-05] MEDS: PANTOPRAZOLE 40 MG TABLET PO (08:08)
[2020-04-05] MEDS: PRAVASTATIN SODIUM 20 MG TABLET 40 MG PO (08:08)
[2020-04-05] MEDS: ENOXAPARIN 40 MG/0.4 ML SYRINGE SUB-Q ×2 (08:08→20:05)
[2020-04-05] MEDS: guaiFENesin/DEXTROMETHORPHAN 10 ML UDC PO (08:11)
[2020-04-05] MEDS: ALBUTEROL SULFATE (*SP) AEROSOL 1 PUFF 2 PUFF INHALATION ×4 (09:13→19:55)
--- NOTE | 2020-04-05 11:55 | PCSTNOTE ---
Patient to be assessed by MD to determine if patient is medically stable to tolerate a MBS. Once medical status is determined, MD will place the order for a MBS to be completed.
[2020-04-05] MEDS: SODIUM CHLORIDE 0.9% IV 1,000 ML 75 ML IV CONT (15:48)
--- NOTE | 2020-04-05 16:33 | PM.IMPN ---
Progress Note: A&P Assessment and Plan (1) Acute respiratory failure with hypoxemia: Code(s): J96.01 - Acute respiratory failure with hypoxia Status: Acute Assessment and Plan: Admit to IMU, telemetry, continue high flow oxygen supplementation to maintain pulse ox >94%, continuous pulse oximetry, Continue treatment for pneumonia. Monitor ABG. RT assess and treat. We will consider endotracheal intubation and mechanical ventilation if necessary. 04/05/20 16:33 patient is a 50-year-old male with history of hypertension patient presented emergency department with a complaint persistent cough shortness of breath and fever patient was positive for COVID-19 on 03/28 and since then his symptoms are persist and would not improving he presented emergency department as he was hypoxic patient was placed on high-flow oxygen which did improve symptoms, emergency depart patient started on dexamethasone and Remdesivir, currently patient is in ICU under IMU care, patient states is feeling much better compared to when he arrived, patient had a bedside swallow study and he failed patient is NPO currently, will start the patient Procalamine until patient had repeat swallow study and further recommendation to follow, will continue to monitor the patient as patient's symptoms improve patient is off oxygen for 2 days and no fever was 2 days will do the discharge planning. (2) Pneumonia due to COVID-19 virus: Code(s): U07.1 - COVID-19; J12.89 - Other viral pneumonia Status: Acute Assessment and Plan: Continue bronchodilators, Remdesivir, Dexamethasone. oxygen supplementation. Check Influenza swab. Continue IV antibiotics that were started in the ER. Check sputum culture. (3) Acute renal failure: Qualifiers: Acute renal failure type: unspecified Qualified Code(s): N17.9 - Acute kidney failure, unspecified Code(s): N17.9 - Acute kidney failure, unspecified Status: Acute Assessment and Plan: Continue light IV hydration overnight. Monitor renal function and urine output. Avoid nephrotoxic agents, renally dose medications. (4) Hyperlipidemia: Qualifiers: Hyperlipidemia type: unspecified Qualified Code(s): E78.5 - Hyperlipidemia, unspecified Code(s): E78.5 - Hyperlipidemia, unspecified Status: Chronic Assessment and Plan: Continue pravastatin PO. (5) Chronic GERD: Code(s): K21.9 - Gastro-esophageal reflux disease without esophagitis Status: Chronic Assessment and Plan: Continue PPI therapy. (6) Adult hypothyroidism: Code(s): E03.9 - Hypothyroidism, unspecified Status: Chronic Assessment and Plan: Continue Levothyroxine PO. (7) Benign essential hypertension: Code(s): I10 - Essential (primary) hypertension Status: Chronic Assessment and Plan: Monitor blood pressure. Hold olmesartan secondary to acute renal failure and resume when appropriate. Additional Plan I suspect the patient will likely need at least 2 nights of inpatient medical therapy for his acute respiratory failure and comorbid conditions listed above. Date of service was 04/04/2020 at 21:00 hrs. Subjective Date/time seen: 04/05/20 16:33 patient is a 50-year-old male with history of hypertension patient presented emergency department with a complaint persistent cough shortness of breath and fever patient was positive for COVID-19 on 03/28 and since then his symptoms are persist and would not improving he presented emergency department as he was hypoxic patient was placed on high-flow oxygen which did improve symptoms, emergency depart patient started on dexamethasone and Remdesivir, currently patient is in ICU under IMU care, patient states is feeling much better compared to when he arrived, patient had a bedside swallow study and he failed patient is NPO currently, will start the patient Procalamine until patient had repeat swallow study
[2020-04-05 17:47] LABS: Basophils Percent Auto 0.1 % (0.2-1.2); Eosinophils Percent Auto 0.1 % (0-4.4); Hematocrit 34.8 % (42.0-52.0); Hemoglobin 11.9 g/dL (14.0-18.0); Immature Granulocyte Absolute 0.04 K/mm3 (0.00-0.031); Immature Granulocyte Percent A 0.5 % (0-0.5); Lymphocytes Absolute Auto 0.66 K/mm3 (0.9-3.2); Mean Corpuscular HGB Conc 34.2 g/dl (32-36); Mean Corpuscular Hemoglobin 32.3 pg (26-34); Mean Corpuscular Volume 94.6 fl (80-100); Mean Platelet Volume 12.8 fl (7.4-10.4); Monocytes Absolute Auto 0.5 K/mm3 (0.1-0.6); Monocytes Percent Auto 6.1 % (2.6-8.5); Neutrophils Absolute Auto 6.2 K/mm3 (1.3-6.7); Neutrophils Percent Auto 84.2 % (45.5-73.1); Platelet Count Result 357 k/mm3 (150-375); Red Blood Count 3.68 M/mm3 (4.6-6.20); White Blood Count 7.3 K/mm3 (4.5-10.0)
[2020-04-05] MEDS: AMINO ACIDS 4.25%/D5W/LYTES/CA 2,000 ML 100 ML IV CONT (17:52)
[2020-04-05] MEDS: FAT EMULSIONS IV 20% 250 ML 20.83 ML IVPB (17:52)
[2020-04-05] MEDS: REMDESIVIR 100 MG/NS 250 ML 100 MG/250 ML BAG 250 MG IVPB (21:36)
[2020-04-05] MEDS: diphenhydrAMINE HCl INJ 50 MG/ML VIAL 25 MG IV PUSH (21:42)
[2020-04-05 22:20] LABS: Partial Thromboplastin Time 29.9 SECONDS (22.3-36.8)
[2020-04-05 22:30] LABS: Transferrin 91 mg/dL (206-381)
[2020-04-05 22:51] LABS: Alanine Aminotransferase 76 U/L (4-50); Albumin Level 3.3 g/dL (3.5-5.1); Alkaline Phosphatase 129 U/L (38-126); Anion Gap 12 mmol/L (8-16); Aspartate Amino Transferase 136 U/L (17-59); Bilirubin,Total 0.5 mg/dL (0.2-1.3); Blood Urea Nitrogen 35 mg/dL (9-20); Calcium 8.3 mg/dL (8.4-10.2); Carbon Dioxide 24 mmol/L (22-30); Chloride 107 mmol/L (98-107); Estimated CRCL calculation 77 ml/min; Estimated Glomerular Filt Rate > 60; Glucose 156 mg/dL (75-110); Magnesium 2.6 mg/dL (1.6-2.3); Potassium 4.6 mmol/L (3.4-5.0); Sodium 143 mmol/L (137-145)
[2020-04-06] VITALS (24 sets, daily range): BP systolic 98–145; BP diastolic 74–94; PULSE 66–109; RESP 21–40; TEMP 36.2–38.2; O2SAT 90–94
[2020-04-06 05:07] LABS: Basophils Percent Auto 0.3 % (0.2-1.2); Eosinophils Percent Auto 0.4 % (0-4.4); Hematocrit 35.1 % (42.0-52.0); Hemoglobin 11.7 g/dL (14.0-18.0); Lymphocytes Absolute Auto 0.84 K/mm3 (0.9-3.2); Lymphocytes Percent Auto 8.2 % (18.3-44.2); Mean Corpuscular HGB Conc 33.3 g/dl (32-36); Mean Corpuscular Hemoglobin 32.2 pg (26-34); Mean Corpuscular Volume 96.7 fl (80-100); Mean Platelet Volume 11.3 fl (7.4-10.4); Monocytes Absolute Auto 0.3 K/mm3 (0.1-0.6); Monocytes Percent Auto 3.3 % (2.6-8.5); Neutrophils Absolute Auto 8.9 K/mm3 (1.3-6.7); Neutrophils Percent Auto 86.8 % (45.5-73.1); Platelet Count Result 368 k/mm3 (150-375); Red Blood Count 3.63 M/mm3 (4.6-6.20); Red Cell Distribution Width 12.8 % (11.5-14.5); White Blood Count 10.2 K/mm3 (4.5-10.0)
[2020-04-06 06:24] LABS: Alanine Aminotransferase 78 U/L (4-50); Albumin Level 3.1 g/dL (3.5-5.1); Alkaline Phosphatase 123 U/L (38-126); Anion Gap 12 mmol/L (8-16); Aspartate Amino Transferase 112 U/L (17-59); Bilirubin,Total 0.3 mg/dL (0.2-1.3); Blood Urea Nitrogen 37 mg/dL (9-20); Calcium 8.2 mg/dL (8.4-10.2); Carbon Dioxide 23 mmol/L (22-30); Chloride 109 mmol/L (98-107); Estimated CRCL calculation 84 ml/min; Estimated Glomerular Filt Rate > 60; Glucose 137 mg/dL (75-110); Phosphorus 3.9 mg/dL (2.5-4.5); Potassium 4.4 mmol/L (3.4-5.0); Sodium 144 mmol/L (137-145)
[2020-04-06 06:42] LABS: CRP 17.3 mg/dL (<1.0)
[2020-04-06 06:51] LABS: Triglycerides 182 mg/dL (<150)
[2020-04-06] MEDS: SODIUM CHLORIDE 0.9% IV 1,000 ML 75 ML IV CONT (07:28)
[2020-04-06] MEDS: ALBUTEROL SULFATE (*SP) AEROSOL 1 PUFF 2 PUFF INHALATION (08:01)
--- NOTE | 2020-04-06 08:23 | WPDCNINT ---
Assessment and Plan Assessment and plan (1) Pneumonia due to COVID-19 virus: Code(s): U07.1 - COVID-19; J12.89 - Other viral pneumonia Status: Acute Assessment and Plan: patient admitted on 04/04/2020 with increasing shortness of breath, fevers, chills and cough. SARS-CoV-2 PCR PCR was positive on 03/28/2020 - patient currently on azithromycin and ceftriaxone which was started on 04/05/2020 - will continue Remdesivir ( started on 04/05/2020) - will start dexamethasone - transfuse 1 unit convalescent COVID-19 plasma - continue airborne, droplet, contact isolation and precautions - will order and follow inflammatory markers - patient currently on high-flow oxygen therapy, Airvo, 60 L flow rate and 80% FiO2 along with 100% non-rebreather. Discussed with patient if condition worsens he is agreeable for intubation - will add Chloraseptic lozenges for his cough (2) Acute respiratory failure with hypoxemia: Code(s): J96.01 - Acute respiratory failure with hypoxia Status: Acute Assessment and Plan: as above (3) Acute renal failure: Qualifiers: Acute renal failure type: unspecified Qualified Code(s): N17.9 - Acute kidney failure, unspecified Code(s): N17.9 - Acute kidney failure, unspecified Status: Acute Assessment and Plan: acute renal failure could be related to decreased p.o. intake secondary to coughing bouts - creatinine improving since admission, urine output has been good - will discontinue IV fluids this patient also on PPN - monitor urine output, ill function electrolytes (4) Chronic GERD: Code(s): K21.9 - Gastro-esophageal reflux disease without esophagitis Status: Chronic Assessment and Plan: continue IV PPI (5) Adult hypothyroidism: Code(s): E03.9 - Hypothyroidism, unspecified Status: Chronic Assessment and Plan: continue IV levothyroxine (6) Benign essential hypertension: Code(s): I10 - Essential (primary) hypertension Status: Chronic Assessment and Plan: blood pressure is within normal limits, will hold antihypertensives at this time (7) DVT prophylaxis: Code(s): Z29.9 - Encounter for prophylactic measures, unspecified Status: Acute Assessment and Plan: Lovenox 40 mg Sub-cu Q12H (8) Dietary counseling and surveillance: Code(s): Z71.3 - Dietary counseling and surveillance Status: Acute Assessment and Plan: patient has been choking on his food question possible secondary to coughing and or some history of narrowing of the esophagus see stated he is to have vomiting in the past which improved with a pill that the physician gave him. He is and able to provide any more history. Will call family and obtain more history - has been started on PPN on 04/05/2020 - will have GI evaluate the patient, will discuss regarding NG tube placement and enteral tube feeds Additional Plan discussed with Maged Ambrocio, patient's father who stated that patient was at [facility] about 8-10 years ago, he use to have bouts of cough being and was unable to keep his food down and had a lot of vomiting then. He was placed on some medication which helped him with that. He was taken of that pill, does not remember when, after his symptoms improved. I updated patient's father with patient's current condition and plan of care. I answered all questions. I did update him regarding starting dexamethasone and will transfusing a unit of convalescent plasma. I also discussed with him regarding possibility of intubation if patient comes more hypoxic or gets tired of breathing, He comprehends that and is agreeable for intubation. I also discussed with the patient in details regarding possibility of intubation, and he agrees to be intubated. code status: Full code critical care time spent: 49 minutes Due to a high probability of clinically significant, life threaten
[2020-04-06] MEDS: DEXAMETHASONE SOD PHOS INJ 4 MG/ML VIAL 6 MG IV PUSH (09:01)
[2020-04-06] MEDS: ENOXAPARIN 40 MG/0.4 ML SYRINGE SUB-Q ×2 (09:02→20:42)
[2020-04-06] MEDS: LORazepam INJ (*CRX) 2 MG/ML VIAL 0.25 MG IV PUSH ×2 (10:34→21:04)
[2020-04-06] MEDS: BENZOCAINE/MENTHOL (*BKC) 18 EA LOZENGE 1 LOZENGE PO ×2 (10:35→21:03)
--- NOTE | 2020-04-06 11:55 | PCDIET ---
ICU Rounding Note: Patient failed swallow evaluation. Clinimix E 4.25/5 initiated at 100mL/hr with 250mL 20% lipids daily for total of 1316kcal and 102g protein. If able to achieve enteral access, recommend Vital 1.2 at goal of 75mL/hr x 22 hours/day for 1980kcal, 123g protein and 1338mL free water. Recommend 30mL water flush every 4 hours. Current PPN acceptable for short term nutrition. If unable to feed enterally, recommend central PN (Clinimix E 5/15)at 90mL/hr with 250mL 20% lipids for 2034kcal and 108g protein. Last recorded weight is 97.7kg which is increased from last review. +I/O. Bowel Motility: No documented BM. Labs Reviewed: Hgb (11.7), Hct (35.1), Glu (137), Alb (3.1), Mani Ca (8.92), TG (182) Meds Noted: Albuterol, Zithromax, Rocephin, Decadron, Synthroid, Protonix, Remdesivir Additional Notes: No documented skin breakdown. Following daily in ICU rounds. Assessing/reassessing every 5 days.
--- NOTE | 2020-04-06 12:28 | WPDGICN ---
Assessment and Plan Assessment and plan (1) Dysphagia: Code(s): R13.10 - Dysphagia, unspecified Status: Acute Assessment and Plan: Patient currently has difficulty swallowing. Appears to choke when heating. This appears to correlate with his coughing and recent shortness of breath. At the present time it does not appear safe to let him swallow. Would recommend Dobbhoff tube for the immediate future. We will continue proton pump inhibitor therapy. He is on this for GE reflux disease. We will also give a trial of Reglan at a low dose intravenously as this may help with his symptoms. Endoscopy will be deferred because of his positive COVID status but can be considered electively at a later date as his disease improves. (2) Chronic GERD: Code(s): K21.9 - Gastro-esophageal reflux disease without esophagitis Status: Chronic (3) Pneumonia due to COVID-19 virus: Code(s): U07.1 - COVID-19; J12.89 - Other viral pneumonia Status: Acute (4) Acute respiratory failure with hypoxemia: Code(s): J96.01 - Acute respiratory failure with hypoxia Status: Acute (5) Cognitive impairment: Code(s): R41.89 - Other symptoms and signs involving cognitive functions and awareness Status: Acute GI Consult Note Consult date/time: 04/06/20 12:28 HPI: Avtar Ambrocio is a 50 year old maleI am asked to see at the request of the jetting machine operator. Patient admitted to the hospital with respiratory failure and COVID positive pneumonia. He has an underlying history of GE reflux disease, hypertension, hypothyroidism, hyperlipidemia. He has had increasing shortness of breath cough fever and chills for 1 week. COVID was identified on 03/28/2020. Patient apparently has been having difficulty swallowing since his coughing spells have worsened. He is chronically maintained on proton pump inhibitor therapy. He reports having difficulty in past years that improved on taking an unknown pill. This was treated at a different institution. It is uncertain in felt unlikely is ever had an endoscopy in the past. Past medical history is significant for colon polyps. Family history of colon cancer in grandparent. Patient underwent a colonoscopy in 2011 by at that time. Review of Systems Review of Systems: Narrative: Physical exam patient has significant respiratory distress he is on high-flow oxygen therapy at present. Lungs reveals scattered rhonchi. Abdomen is soft and nontender. All systems reviewed & are unremarkable except as noted in HPI and below PMFSH Past Medical History Medical History Adult hypothyroidism Benign essential hypertension Chronic GERD Hyperlipidemia Family History Family History Mother Family history of elevated blood lipids Diabetes mellitus Family history of diabetes mellitus in first degree relative Family history of obesity Family history of hyperthyroidism Hypertension Cerebrovascular accident Atrial fibrillation Sleep apnea Father Family history of elevated blood lipids Hypertension Other Carcinoma of colon Social History Social History Smoking status: Never smoker Second hand tobacco smoke exposure: No Alcohol intake: never Substance use: never Substance use type: does not use Gender identity (if verbalized by the patient): Male Spiritual care concerns: No Meds Home Medications and Allergies Home Medications Medication Instructions Recorded Confirmed Type lansoprazole 30 mg delayed 30 mg PO DAILY #90 tablet 03/16/20 04/04/20 Rx release,disintegrating tablet levothyroxine 100 mcg tablet 100 mcg PO DAILY #90 tablet 03/16/20 04/04/20 Rx olmesartan 40 mg tablet 40 mg PO DAILY #90 tablet 03/16/20 04/04/20 Rx pravastatin 40 mg tablet 40 mg PO DAILY #90 table
[2020-04-06] MEDS: ALBUTEROL SULFATE NEB 2.5 MG/0.5 ML INH INHALATION ×2 (13:14→19:40)
[2020-04-06] MEDS: PANTOPRAZOLE SODIUM IV 40 MG VIAL IV PUSH ×2 (14:05→20:46)
[2020-04-06] MEDS: METOCLOPRAMIDE HCL INJ 10 MG/2 ML VIAL 5 MG IV PUSH ×2 (14:05→18:15)
--- NOTE | 2020-04-06 14:21 | PC.NURSE ---
RN to bedside, unsuccessful in NG placement. Patient able to swallow ice chips without issue. Dr. Dexterly notified. Bedside swallow evaluation reordered.
[2020-04-06] MEDS: AMINO ACIDS 4.25%/D5W/LYTES/CA 2,000 ML 100 ML IV CONT (14:37)
--- NOTE | 2020-04-06 14:45 | PC.NURSE ---
Speech therapy at bedside.
--- NOTE | 2020-04-06 15:32 | PCSTNOTE ---
Please refer to the Bedside Swallow Evaluation in the EMR. Please note, silent aspiration cannot be ruled out at bedside.
[2020-04-06 16:15] LABS: Glucose Point of Care 156 (65-105)
--- NOTE | 2020-04-06 16:48 | PM.IMPN ---
Progress Note: A&P Assessment and Plan (1) Acute respiratory failure with hypoxemia: Code(s): J96.01 - Acute respiratory failure with hypoxia Status: Acute Assessment and Plan: Admit to IMU, telemetry, continue high flow oxygen supplementation to maintain pulse ox >94%, continuous pulse oximetry, Continue treatment for pneumonia. Monitor ABG. RT assess and treat. We will consider endotracheal intubation and mechanical ventilation if necessary. 04/06/20 16:48 Admit to IMU, telemetry, continue high flow oxygen supplementation to maintain pulse ox >94%, continuous pulse oximetry, Continue treatment for pneumonia. Monitor ABG. RT assess and treat. We will consider endotracheal intubation and mechanical ventilation if necessary. patient is a 50-year-old male with history of hypertension patient presented emergency department with a complaint persistent cough shortness of breath and fever patient was positive for COVID-19 on 03/28 and since then his symptoms are persisting and would not improving he presented emergency department as he was hypoxic patient was placed on high-flow oxygen which did improve symptoms, emergency depart patient started on dexamethasone and Remdesivir, today 04/06 received call from nursing staff the patient was quite hypoxic and was desaturating on high-flow oxygen, discussed with customer account representative and patient was seen by the customer account representative and was transfused 1 unit convalescent COVID-19 plasma today on 04/06, further recommendation to follow , patient had a bedside swallow study on 04/05 and he failed patient is NPO currently, started the patient Procalamine until patient had repeat swallow study and further recommendation to follow, appreciate customer account representative, patient is also seen GI as patient history persistent cough and GERD, will continue to monitor the patient as patient's symptoms improve patient is off oxygen for 2 days and no fever was 2 days will do the discharge planning. (2) Pneumonia due to COVID-19 virus: Code(s): U07.1 - COVID-19; J12.89 - Other viral pneumonia Status: Acute Assessment and Plan: Continue bronchodilators, Remdesivir, Dexamethasone. oxygen supplementation. Check Influenza swab. Continue IV antibiotics that were started in the ER. Check sputum culture. (3) Acute renal failure: Qualifiers: Acute renal failure type: unspecified Qualified Code(s): N17.9 - Acute kidney failure, unspecified Code(s): N17.9 - Acute kidney failure, unspecified Status: Acute Assessment and Plan: Continue light IV hydration overnight. Monitor renal function and urine output. Avoid nephrotoxic agents, renally dose medications. (4) Hyperlipidemia: Qualifiers: Hyperlipidemia type: unspecified Qualified Code(s): E78.5 - Hyperlipidemia, unspecified Code(s): E78.5 - Hyperlipidemia, unspecified Status: Chronic Assessment and Plan: Continue pravastatin PO. (5) Chronic GERD: Code(s): K21.9 - Gastro-esophageal reflux disease without esophagitis Status: Chronic Assessment and Plan: Continue PPI therapy. (6) Adult hypothyroidism: Code(s): E03.9 - Hypothyroidism, unspecified Status: Chronic Assessment and Plan: Continue Levothyroxine PO. (7) Benign essential hypertension: Code(s): I10 - Essential (primary) hypertension Status: Chronic Assessment and Plan: Monitor blood pressure. Hold olmesartan secondary to acute renal failure and resume when appropriate. Subjective Date/time seen: 04/06/20 16:48 Admit to IMU, telemetry, continue high flow oxygen supplementation to maintain pulse ox >94%, continuous pulse oximetry, Continue treatment for pneumonia. Monitor ABG. RT assess and treat. We will consider endotracheal intubation and mechanical ventilation if necessary. patient is a 50-year-old male with history of hypertension patient presented emergency department with a co
[2020-04-06] MEDS: SODIUM CHLORIDE 0.9% IV 250 ML 30 ML IV CONT (17:36)
[2020-04-06] MEDS: FAT EMULSIONS IV 20% 250 ML 20.83 ML IVPB (18:14)
[2020-04-06] MEDS: guaiFENesin/DEXTROMETHORPHAN 10 ML UDC PO ×2 (18:15→20:42)
[2020-04-06] MEDS: REMDESIVIR 100 MG/NS 250 ML 100 MG/250 ML BAG 250 MG IVPB (20:57)
[2020-04-07] VITALS (22 sets, daily range): BP systolic 124–164; BP diastolic 64–93; PULSE 69–113; RESP 20–40; TEMP 36.4–37.9; O2SAT 87–93
[2020-04-07] MEDS: METOCLOPRAMIDE HCL INJ 10 MG/2 ML VIAL 5 MG IV PUSH ×3 (01:03→12:12)
[2020-04-07] MEDS: ALBUTEROL SULFATE NEB 2.5 MG/0.5 ML INH INHALATION ×4 (01:18→20:47)
[2020-04-07] MEDS: LEVOTHYROXINE SODIUM 100 MCG TABLET PO (05:36)
[2020-04-07 05:55] LABS: Basophils Percent Auto 0.2 % (0.2-1.2); Eosinophils Percent Auto 0.3 % (0-4.4); Hematocrit 34.4 % (42.0-52.0); Hemoglobin 11.4 g/dL (14.0-18.0); Immature Granulocyte Absolute 0.13 K/mm3 (0.00-0.031); Immature Granulocyte Percent A 1.4 % (0-0.5); Lymphocytes Percent Auto 8.3 % (18.3-44.2); Mean Corpuscular HGB Conc 33.1 g/dl (32-36); Mean Corpuscular Hemoglobin 31.4 pg (26-34); Mean Corpuscular Volume 94.8 fl (80-100); Mean Platelet Volume 11.5 fl (7.4-10.4); Monocytes Absolute Auto 0.3 K/mm3 (0.1-0.6); Monocytes Percent Auto 3.3 % (2.6-8.5); Neutrophils Absolute Auto 8.3 K/mm3 (1.3-6.7); Neutrophils Percent Auto 86.5 % (45.5-73.1); Platelet Count Result 420 k/mm3 (150-375); Red Blood Count 3.63 M/mm3 (4.6-6.20); Red Cell Distribution Width 12.6 % (11.5-14.5); White Blood Count 9.6 K/mm3 (4.5-10.0)
[2020-04-07 06:07] LABS: D Dimer 2.39 ug/mL (<0.48)
[2020-04-07 06:11] LABS: Anion Gap 8 mmol/L (8-16); Blood Urea Nitrogen 33 mg/dL (9-20); Calcium 8.3 mg/dL (8.4-10.2); Carbon Dioxide 26 mmol/L (22-30); Chloride 106 mmol/L (98-107); Estimated CRCL calculation 101 ml/min; Estimated Glomerular Filt Rate > 60; Glucose 134 mg/dL (75-110); Potassium 4.3 mmol/L (3.4-5.0); Sodium 140 mmol/L (137-145)
[2020-04-07 06:31] LABS: CRP 17.6 mg/dL (<1.0); Lactate Dehydrogenase 1940 U/L (313-618); Magnesium 2.5 mg/dL (1.6-2.3); Phosphorus 3.9 mg/dL (2.5-4.5)
[2020-04-07] MEDS: DEXAMETHASONE SOD PHOS INJ 4 MG/ML VIAL 6 MG IV PUSH (07:49)
[2020-04-07] MEDS: ENOXAPARIN 40 MG/0.4 ML SYRINGE SUB-Q ×2 (07:53→20:28)
[2020-04-07] MEDS: PANTOPRAZOLE SODIUM IV 40 MG VIAL IV PUSH ×2 (07:53→20:28)
[2020-04-07 08:08] LABS: Alanine Aminotransferase 62 U/L (4-50); Albumin Level 3.3 g/dL (3.5-5.1); Alkaline Phosphatase 120 U/L (38-126); Anion Gap 10 mmol/L (8-16); Aspartate Amino Transferase 85 U/L (17-59); Bilirubin,Total 0.5 mg/dL (0.2-1.3); Blood Urea Nitrogen 34 mg/dL (9-20); CRP 18.1 mg/dL (<1.0); Calcium 8.4 mg/dL (8.4-10.2); Carbon Dioxide 24 mmol/L (22-30); Chloride 106 mmol/L (98-107); Estimated CRCL calculation 101 ml/min; Estimated Glomerular Filt Rate > 60; Glucose 133 mg/dL (75-110); Potassium 4.2 mmol/L (3.4-5.0); Sodium 140 mmol/L (137-145)
--- NOTE | 2020-04-07 08:43 | WPDGIPROGNO ---
Progress Note: A&P Additional Plan Patient continues to remain very short of breath. Supplemental oxygen in place. Intolerant of placement of Dobbhoff tube. Or small NG tube. Patient appears to tolerate liquids at this time difficulty with more solid such as crackers. Impression 1. Respiratory failure. Patient requiring supplemental oxygen. 2. COVID positive infection. Pneumonia. 3. Dysphagia. Appears to be related to his respiratory difficulties. Currently able to take liquids. Therefore supplementing this with Ensure etc is advised. Liquid medications if at all possible. Patient unable to be sent off the floor for at this time. Because of respiratory status. will need to monitor oral intake to ensure adequate calories at this time. I discussed with the hospitalist service who agrees. Subjective Date/time seen: 04/07/20 08:43 Objective Data Vital Signs Vital Signs: Vital Signs - 24 hr 04/06/20 10:00 04/06/20 12:00 04/06/20 12:35 Temperature 100.7 F H 100.7 F H Pulse Rate 100 108 H Respiratory Rate 40 H Blood Pressure 129/84 Pulse Oximetry 90 04/06/20 13:05 04/06/20 13:19 04/06/20 13:30 Temperature 100 F H Pulse Rate 98 98 Respiratory Rate 30 H 30 H Blood Pressure Pulse Oximetry 04/06/20 14:00 04/06/20 16:00 04/06/20 17:40 Temperature 99.1 F 97.1 F L 97.2 F L Pulse Rate 98 75 87 Respiratory Rate 30 H 21 H 28 H Blood Pressure 129/84 135/77 141/88 H Pulse Oximetry 94 92 92 04/06/20 17:58 04/06/20 18:00 04/06/20 19:40 Temperature 97.8 F Pulse Rate 85 95 102 H Respiratory Rate 24 H 24 H 26 H Blood Pressure 112/77 112/77 Pulse Oximetry 92 93 04/06/20 19:50 04/06/20 20:00 04/06/20 20:22 Temperature 97.8 F Pulse Rate 99 89 100 Respiratory Rate 28 H 27 H 26 H Blood Pressure 120/94 H Pulse Oximetry 93 91 04/06/20 22:00 04/06/20 22:53 04/07/20 00:00 Temperature Pulse Rate 85 86 89 Respiratory Rate 21 H 21 H Blood Pressure 145/85 H 145/85 H Pulse Oximetry 92 92 04/07/20 01:18 04/07/20 01:28 04/07/20 02:00 Temperature Pulse Rate 113 H 103 H 79 Respiratory Rate 26 H 28 H 38 H Blood Pressure 130/77 Pulse Oximetry 88 L 04/07/20 04:00 04/07/20 06:00 04/07/20 07:59 Temperature 99.3 F 100.2 F H Pulse Rate 69 101 H 106 H Respiratory Rate 33 H 30 H 36 H Blood Pressure 124/78 138/78 145/93 H Pulse Oximetry 89 L 87 L 89 L Intake/Output Intake/Output: Intake & Output 04/04/20 04/05/20 04/06/20 04/07/20 23:59 23:59 23:59 23:59 Intake Total 1650 1800 4332 Output Total 2025 1225 750 Balance 1650 -225 3107 -750 Meds/Results Medications: Active Medications Generic Name Dose Route Start Last Admin Trade Name Freq PRN Reason Stop Dose Admin Acetaminophen 650 mg 04/04/20 21:45 Acetaminophen 325 Mg Tablet PO Q4H PRN Mild Pain (1-3) or Fever Albuterol 2.5 mg 04/06/20 14:00 04/07/20 01:18 Albuterol Sulfate Neb 2.5 Mg/0.5 Ml Inh INHALATION 2.5 mg Q6HRT KARLEE Administration Benzocaine 1 lozenge 04/06/20 08:21 04/06/20 21:03 Benzocaine/Menthol (*Bkc) 18 Ea Lozenge PO 1 lozenge PRN PRN Administration Sore Throat Benzonatate 200 mg 04/07/20 09:00 Benzonatate 100 Mg Capsule PO TID [facility] Dexamethasone Sodium Phosphate 6 mg 04/06/20 09:00 04/07/20 07:49 Dexamethasone Sod Phos Inj 4 Mg/Ml Vial IV PUSH 04/15/20 09:01 6 mg DAILY KARLEE Administration Enoxaparin Sodium 40 mg 04/05/20 21:00 04/07/20 07:53 Enoxaparin 40 Mg/0.4 Ml Syringe SUB-Q 40 mg Q12HR KARLEE Administration Guaifenesin/Dextromethorphan 10 ml 04/06/20 09:00 04/07/20 07:53 Guaifenesin/Dextromethorphan 10 Ml Udc PO Not Given Q4H KARLEE Remdesivir 100 mg in 250 mls @ 250 mls/hr 04/05/20 21:00 04/06/20 20:57 IVPB 04/08/20 21:01 250 mls/hr Q24H KARLEE Administration Azithromycin 500 mg in 250 mls @ 250 mls/hr 04/05/20 21:00 04/06/20 20:37 Zithromax IVPB 2
[2020-04-07] MEDS: BENZOCAINE/MENTHOL (*BKC) 18 EA LOZENGE 1 LOZENGE PO (09:20)
[2020-04-07] MEDS: BENZONATATE 100 MG CAPSULE 200 MG PO ×2 (09:53→16:24)
--- NOTE | 2020-04-07 12:26 | WPDINTPN ---
Progress Note: A&P Assessment and Plan (1) Pneumonia due to COVID-19 virus: Code(s): U07.1 - COVID-19; J12.89 - Other viral pneumonia Status: Acute Assessment and Plan: patient admitted on 04/04/2020 with increasing shortness of breath, fevers, chills and cough. SARS-CoV-2 PCR PCR was positive on 03/28/2020 - patient currently on azithromycin and ceftriaxone which was started on 04/05/2020 - will continue Remdesivir ( started on 04/05/2020) - started on dexamethasone on 04/06/2020 - received a unit of convalescent COVID-19 19 plasma on 04/06/2020 - continue airborne, droplet, contact isolation and precautions - inflammatory markers are elevated, will continue to trend - patient currently on high-flow oxygen therapy, Airvo, 50 L flow rate and 70% FiO2 along with 100% non-rebreather. Discussed with patient if condition worsens he is agreeable for intubation - patient has bad bouts of coughing, not tolerating Robitussin syrup, will add Tessalon Perles which is smaller size pills and he is able to swallow (2) Acute respiratory failure with hypoxemia: Code(s): J96.01 - Acute respiratory failure with hypoxia Status: Acute Assessment and Plan: as above (3) Acute renal failure: Qualifiers: Acute renal failure type: unspecified Qualified Code(s): N17.9 - Acute kidney failure, unspecified Code(s): N17.9 - Acute kidney failure, unspecified Status: Acute Assessment and Plan: acute renal failure could be related to decreased p.o. intake secondary to coughing bouts - creatinine back to baseline, 0.9 this morning ( 1.6 on admission) - will discontinue IV fluids - monitor urine output, ill function electrolytes (4) Chronic GERD: Code(s): K21.9 - Gastro-esophageal reflux disease without esophagitis Status: Chronic Assessment and Plan: continue IV PPI (5) Adult hypothyroidism: Code(s): E03.9 - Hypothyroidism, unspecified Status: Chronic Assessment and Plan: continue IV levothyroxine (6) Benign essential hypertension: Code(s): I10 - Essential (primary) hypertension Status: Chronic Assessment and Plan: blood pressure is within normal limits, will hold antihypertensives at this time (7) DVT prophylaxis: Code(s): Z29.9 - Encounter for prophylactic measures, unspecified Status: Acute Assessment and Plan: Lovenox 40 mg Sub-cu Q12H (8) Dietary counseling and surveillance: Code(s): Z71.3 - Dietary counseling and surveillance Status: Acute Assessment and Plan: patient has been choking on his food question possible secondary to coughing and or some history of narrowing of the esophagus see stated he is to have vomiting in the past which improved with a pill that the physician gave him. He is and able to provide any more history. Will call family and obtain more history - has been started on PPN on 04/05/2020 - was unable to insert NG tube for feeding due to patient's bouts of coughing - speech therapy re-evaluated patient on 04/06/2020 and cleared him for clear liquid diet, patient has been started on full liquid diet - will discontinue PPN - will place patient on Ensure 3 times a day Additional Plan discussed with patient and with his condition and plan of care. I answered all questions discussed with Maged Cristóbal, patient's father who stated that patient was at [facility] about 8-10 years ago, he use to have bouts of cough being and was unable to keep his food down and had a lot of vomiting then. He was placed on some medication which helped him with that. He was taken of that pill, does not remember when, after his symptoms improved. I updated patient's father with patient's current condition and plan of care. I answered all questions. I did update him regarding starting dexamethasone and will transfusing a unit of convalescent plasma. I also discussed with him
[2020-04-07] MEDS: LIDOCAINE HCL 1% PF INJ 5 ML VIAL INFILTRATE (15:30)
--- NOTE | 2020-04-07 15:57 | PM.IMPN ---
Progress Note: A&P Assessment and Plan (1) Acute respiratory failure with hypoxemia: Code(s): J96.01 - Acute respiratory failure with hypoxia Status: Acute Assessment and Plan: Admit to IMU, telemetry, continue high flow oxygen supplementation to maintain pulse ox >94%, continuous pulse oximetry, Continue treatment for pneumonia. Monitor ABG. RT assess and treat. We will consider endotracheal intubation and mechanical ventilation if necessary. 04/07/20 15:57 Admit to IMU, telemetry, continue high flow oxygen supplementation to maintain pulse ox >94%, continuous pulse oximetry, Continue treatment for pneumonia. Monitor ABG. RT assess and treat. We will consider endotracheal intubation and mechanical ventilation if necessary. patient is a 50-year-old male with history of hypertension patient presented emergency department with a complaint persistent cough shortness of breath and fever patient was positive for COVID-19 on 03/28 and since then his symptoms are persisting and would not improving he presented emergency department as he was hypoxic patient was placed on high-flow oxygen which did improve symptoms, emergency depart patient started on dexamethasone and Remdesivir, on 04/06 received call from nursing staff the patient was quite hypoxic and was desaturating on high-flow oxygen, discussed with coremaker helper and patient was seen by the coremaker helper and was transfused 1 unit convalescent COVID-19 plasma, patient had a bedside swallow study on 04/05 and he failed patient was NPO and started the patient Procalamine until patient had repeat swallow study, patient was also seen GI as patient has history of persistent cough and GERD, today 04/07 spoke with intensive patient had a bedside swallow study and he was able swallow clear liquids patient started on a clear liquids by the coremaker helper and stopped Procalamine, coremaker helper further stated the patient oxygen requirement is not improving will continue present managed and monitor. (2) Pneumonia due to COVID-19 virus: Code(s): U07.1 - COVID-19; J12.89 - Other viral pneumonia Status: Acute Assessment and Plan: Continue bronchodilators, Remdesivir, Dexamethasone. oxygen supplementation. Check Influenza swab. Continue IV antibiotics that were started in the ER. Check sputum culture. (3) Acute renal failure: Qualifiers: Acute renal failure type: unspecified Qualified Code(s): N17.9 - Acute kidney failure, unspecified Code(s): N17.9 - Acute kidney failure, unspecified Status: Acute Assessment and Plan: Continue light IV hydration overnight. Monitor renal function and urine output. Avoid nephrotoxic agents, renally dose medications. (4) Hyperlipidemia: Qualifiers: Hyperlipidemia type: unspecified Qualified Code(s): E78.5 - Hyperlipidemia, unspecified Code(s): E78.5 - Hyperlipidemia, unspecified Status: Chronic Assessment and Plan: Continue pravastatin PO. (5) Chronic GERD: Code(s): K21.9 - Gastro-esophageal reflux disease without esophagitis Status: Chronic Assessment and Plan: Continue PPI therapy. (6) Adult hypothyroidism: Code(s): E03.9 - Hypothyroidism, unspecified Status: Chronic Assessment and Plan: Continue Levothyroxine PO. (7) Benign essential hypertension: Code(s): I10 - Essential (primary) hypertension Status: Chronic Assessment and Plan: Monitor blood pressure. Hold olmesartan secondary to acute renal failure and resume when appropriate. Subjective Date/time seen: 04/07/20 15:57 Admit to IMU, telemetry, continue high flow oxygen supplementation to maintain pulse ox >94%, continuous pulse oximetry, Continue treatment for pneumonia. Monitor ABG. RT assess and treat. We will consider endotracheal intubation and mechanical ventilation if necessary. patient is a 50-year-old male with history of hypertension patien
[2020-04-07] MEDS: REMDESIVIR 100 MG/NS 250 ML 100 MG/250 ML BAG 250 MG IVPB (20:28)
[2020-04-07] MEDS: CENTRAL LINE FLUSH 10 ML IV PUSH (20:29)
[2020-04-08] VITALS (27 sets, daily range): BP systolic 108–155; BP diastolic 75–98; PULSE 76–111; RESP 22–35; TEMP 36.5–38.6; O2SAT 88–95
[2020-04-08] MEDS: ALBUTEROL SULFATE NEB 2.5 MG/0.5 ML INH INHALATION ×4 (01:35→20:38)
[2020-04-08] MEDS: LORazepam INJ (*CRX) 2 MG/ML VIAL 0.5 MG IV PUSH (03:28)
[2020-04-08 03:53] LABS: Basophils Percent Auto 0.2 % (0.2-1.2); Eosinophils Percent Auto 0.2 % (0-4.4); Hematocrit 34.3 % (42.0-52.0); Hemoglobin 11.5 g/dL (14.0-18.0); Immature Granulocyte Absolute 0.28 K/mm3 (0.00-0.031); Immature Granulocyte Percent A 2.7 % (0-0.5); Lymphocytes Absolute Auto 0.74 K/mm3 (0.9-3.2); Lymphocytes Percent Auto 7.2 % (18.3-44.2); Mean Corpuscular HGB Conc 33.5 g/dl (32-36); Mean Corpuscular Hemoglobin 32.3 pg (26-34); Mean Corpuscular Volume 96.3 fl (80-100); Mean Platelet Volume 10.8 fl (7.4-10.4); Monocytes Absolute Auto 0.4 K/mm3 (0.1-0.6); Neutrophils Absolute Auto 8.8 K/mm3 (1.3-6.7); Neutrophils Percent Auto 85.7 % (45.5-73.1); Nucleated Red Blood Cells Perc 0.4 % (0.0-0.2); Platelet Count Result 377 k/mm3 (150-375); Red Blood Count 3.56 M/mm3 (4.6-6.20); Red Cell Distribution Width 12.7 % (11.5-14.5); White Blood Count 10.3 K/mm3 (4.5-10.0)
[2020-04-08 04:37] LABS: Alanine Aminotransferase 61 U/L (4-50); Albumin Level 3.3 g/dL (3.5-5.1); Alkaline Phosphatase 142 U/L (38-126); Anion Gap 7 mmol/L (8-16); Aspartate Amino Transferase 71 U/L (17-59); Bilirubin,Total 0.6 mg/dL (0.2-1.3); Blood Urea Nitrogen 30 mg/dL (9-20); CRP 18.2 mg/dL (<1.0); Calcium 8.3 mg/dL (8.4-10.2); Carbon Dioxide 29 mmol/L (22-30); Chloride 105 mmol/L (98-107); Estimated CRCL calculation 101 ml/min; Estimated Glomerular Filt Rate > 60; Glucose 138 mg/dL (75-110); Magnesium 2.4 mg/dL (1.6-2.3); Phosphorus 3.8 mg/dL (2.5-4.5); Potassium 4.1 mmol/L (3.4-5.0); Sodium 141 mmol/L (137-145); Triglycerides 142 mg/dL (<150)
[2020-04-08] MEDS: LEVOTHYROXINE SODIUM 100 MCG TABLET PO (05:57)
[2020-04-08] MEDS: ACETAMINOPHEN 325 MG TABLET 650 MG PO (05:57)
[2020-04-08] MEDS: CENTRAL LINE FLUSH 10 ML IV PUSH ×3 (05:57→21:56)
[2020-04-08] MEDS: ENOXAPARIN 40 MG/0.4 ML SYRINGE SUB-Q ×2 (08:14→20:35)
[2020-04-08] MEDS: PANTOPRAZOLE SODIUM IV 40 MG VIAL IV PUSH ×2 (08:15→20:34)
[2020-04-08] MEDS: BENZONATATE 100 MG CAPSULE 200 MG PO ×3 (08:15→15:57)
[2020-04-08] MEDS: DEXAMETHASONE SOD PHOS INJ 4 MG/ML VIAL 6 MG IV PUSH (08:16)
--- NOTE | 2020-04-08 09:33 | WPDGIPROGNO ---
Progress Note: A&P Additional Plan Patient appears to be tolerating liquid diet adequately. Apparently more solid foods been limited by his cough. Physical exam reveals a have a benign abdomen. Impression 1. Dysphagia. Appears to be related to his cough. Agree with liquid diet advance as tolerated as respiratory status improved. 2. Respiratory failure. Patient has significant hypoxemia and shortness of breath. 3. COVID positive infection. Appears to have pneumonia and apparently accounts for severe shortness of breath at this time. On treatment per quill skinner in the ICU. Subjective Date/time seen: 04/08/20 09:33 Objective Data Vital Signs Vital Signs: Vital Signs - 24 hr 04/07/20 12:00 04/07/20 13:52 04/07/20 14:00 Temperature 98.6 F Pulse Rate 107 H 95 101 H Respiratory Rate 28 H 28 H Blood Pressure 149/88 H 140/90 Pulse Oximetry 90 93 04/07/20 14:24 04/07/20 14:25 04/07/20 16:00 Temperature 97.5 F L Pulse Rate 96 101 H Respiratory Rate 20 40 H Blood Pressure 133/64 Pulse Oximetry 90 91 04/07/20 18:00 04/07/20 20:00 04/07/20 20:48 Temperature 98.2 F Pulse Rate 91 87 87 Respiratory Rate 24 H 31 H 22 H Blood Pressure 139/92 H 129/85 Pulse Oximetry 90 89 L 04/07/20 20:51 04/07/20 20:58 04/07/20 22:00 Temperature Pulse Rate 90 99 90 Respiratory Rate 31 H 25 H 34 H Blood Pressure 133/80 Pulse Oximetry 90 88 L 04/08/20 00:00 04/08/20 01:35 CLAY DIGGER 04/08/20 01:48 CLAY DIGGER Temperature Pulse Rate 86 92 97 Respiratory Rate 22 H 28 H 24 H Blood Pressure 129/85 Pulse Oximetry 88 L 04/08/20 01:49 CLAY DIGGER 04/08/20 02:00 04/08/20 04:00 Temperature 99.9 F H Pulse Rate 95 81 111 H Respiratory Rate 30 H 33 H 30 H Blood Pressure 129/85 147/87 H Pulse Oximetry 93 88 L 90 04/08/20 05:57 04/08/20 06:00 04/08/20 08:00 Temperature 101.4 F H 98.5 F Pulse Rate 102 H 100 Respiratory Rate 30 H 22 H Blood Pressure 108/98 H 144/94 H Pulse Oximetry 90 91 04/08/20 09:26 04/08/20 09:29 Temperature Pulse Rate 105 H 102 H Respiratory Rate 32 H 35 H Blood Pressure Pulse Oximetry 91 Intake/Output Intake/Output: Intake & Output 04/05/20 04/06/20 04/07/20 04/08/20 23:59 23:59 23:59 22:59 Intake Total 1800 4632 2410 90 Output Total 2025 1225 1800 450 Balance -225 3407 610 -360 Meds/Results Medications: Active Medications Generic Name Dose Route Start Last Admin Trade Name Freq PRN Reason Stop Dose Admin Acetaminophen 650 mg 04/04/20 21:45 04/08/20 05:57 Acetaminophen 325 Mg Tablet PO 650 mg Q4H PRN Administration Mild Pain (1-3) or Fever Albuterol 2.5 mg 04/06/20 14:00 04/08/20 09:25 Albuterol Sulfate Neb 2.5 Mg/0.5 Ml Inh INHALATION 2.5 mg Q6HRT KARLEE Administration Benzocaine 1 lozenge 04/06/20 08:21 04/07/20 09:20 Benzocaine/Menthol (*Bkc) 18 Ea Lozenge PO 1 lozenge PRN PRN Administration Sore Throat Benzonatate 200 mg 04/07/20 09:00 04/08/20 08:15 Benzonatate 100 Mg Capsule PO 200 mg TID KARLEE Administration Dexamethasone Sodium Phosphate 6 mg 04/06/20 09:00 04/08/20 08:16 Dexamethasone Sod Phos Inj 4 Mg/Ml Vial IV PUSH 04/15/20 09:01 6 mg DAILY KARLEE Administration Enoxaparin Sodium 40 mg 04/05/20 21:00 04/08/20 08:14 Enoxaparin 40 Mg/0.4 Ml Syringe SUB-Q 40 mg Q12HR KARLEE Administration Guaifenesin/Dextromethorphan 10 ml 04/06/20 09:00 04/08/20 08:14 Guaifenesin/Dextromethorphan 10 Ml Udc PO Not Given Q4H KARLEE Remdesivir 100 mg in 250 mls @ 250 mls/hr 04/05/20 21:00 04/07/20 20:28 IVPB 04/08/20 21:01 250 mls/hr Q24H KARLEE Administration Ceftriaxone Sodium/Dextrose 1 gm in 50 mls @ 100 mls/hr 04/05/20 21:00 04/07/20 20:27 Rocephin 1 Gm/D5w 50 Ml IVPB 100 mls/hr Q24H KARLEE Administration Dextrose 1,000 mls @ 50 mls/hr 04/05/20 16:45 Dextrose 10% IV CONT .Q20H PRN if PN is interrupted Amino Acids/Electrolytes/Dextrose 2,000 ml
--- NOTE | 2020-04-08 12:06 | WPDINTPN ---
Progress Note: A&P Assessment and Plan (1) Pneumonia due to COVID-19 virus: Code(s): U07.1 - COVID-19; J12.89 - Other viral pneumonia Status: Acute Assessment and Plan: patient admitted on 04/04/2020 with increasing shortness of breath, fevers, chills and cough. SARS-CoV-2 PCR PCR was positive on 03/28/2020 - patient currently on azithromycin and ceftriaxone which was started on 04/05/2020 - will continue Remdesivir ( started on 04/05/2020) - started on dexamethasone on 04/06/2020 - received a unit of convalescent COVID-19 plasma on 04/06/2020 will repeat 1 more unit today - continue airborne, droplet, contact isolation and precautions - inflammatory markers are elevated, will continue to trend - patient currently on high-flow oxygen therapy, Airvo, 60 L flow rate and 90% FiO2 along with 100% non-rebreather. Discussed with patient if condition worsens he is agreeable for intubation - continue Tessalon Perles with seems to have helped his cough (2) Acute respiratory failure with hypoxemia: Code(s): J96.01 - Acute respiratory failure with hypoxia Status: Acute Assessment and Plan: as above (3) Acute renal failure: Qualifiers: Acute renal failure type: unspecified Qualified Code(s): N17.9 - Acute kidney failure, unspecified Code(s): N17.9 - Acute kidney failure, unspecified Status: Acute Assessment and Plan: RESOLVED acute renal failure could be related to decreased p.o. intake secondary to coughing bouts - creatinine back to baseline, 0.9 this morning ( 1.6 on admission) - will discontinue IV fluids - monitor urine output, ill function electrolytes (4) Chronic GERD: Code(s): K21.9 - Gastro-esophageal reflux disease without esophagitis Status: Chronic Assessment and Plan: continue IV PPI (5) Adult hypothyroidism: Code(s): E03.9 - Hypothyroidism, unspecified Status: Chronic Assessment and Plan: continue IV levothyroxine (6) Benign essential hypertension: Code(s): I10 - Essential (primary) hypertension Status: Chronic Assessment and Plan: blood pressure is within normal limits, will hold antihypertensives at this time (7) DVT prophylaxis: Code(s): Z29.9 - Encounter for prophylactic measures, unspecified Status: Acute Assessment and Plan: Lovenox 40 mg Sub-cu Q12H (8) Dietary counseling and surveillance: Code(s): Z71.3 - Dietary counseling and surveillance Status: Acute Assessment and Plan: patient has been choking on his food question possible secondary to coughing and or some history of narrowing of the esophagus see stated he is to have vomiting in the past which improved with a pill that the physician gave him. He is and able to provide any more history. Will call family and obtain more history - has been started on PPN on 04/05/2020 , - was unable to insert NG tube for feeding due to patient's bouts of coughing - speech therapy re-evaluated patient on 04/06/2020 and cleared him for clear liquid diet, patient has been started on full liquid diet - PPN DISCONTINUED - continue Ensure Additional Plan discussed with patient and with his condition and plan of care. I answered all questions discussed with Maged Ambrocio, patient's father who stated that patient was at [facility] about 8-10 years ago, he use to have bouts of cough being and was unable to keep his food down and had a lot of vomiting then. He was placed on some medication which helped him with that. He was taken of that pill, does not remember when, after his symptoms improved. I updated patient's father with patient's current condition and plan of care. I answered all questions. I did update him regarding starting dexamethasone and will transfusing a unit of convalescent plasma. I also discussed with him regarding possibility of intubation if patient comes more hypoxic or gets
--- NOTE | 2020-04-08 17:11 | PM.IMPN ---
Progress Note: A&P Assessment and Plan (1) Acute respiratory failure with hypoxemia: Code(s): J96.01 - Acute respiratory failure with hypoxia Status: Acute Assessment and Plan: Admit to IMU, telemetry, continue high flow oxygen supplementation to maintain pulse ox >94%, continuous pulse oximetry, Continue treatment for pneumonia. Monitor ABG. RT assess and treat. We will consider endotracheal intubation and mechanical ventilation if necessary. 04/08/20 17:11 patient is a 50-year-old male with history of hypertension patient presented emergency department with a complaint persistent cough shortness of breath and fever patient was positive for COVID-19 on 03/28 and since then his symptoms are persisting and would not improving he presented emergency department as he was hypoxic patient was placed on high-flow oxygen which did improve symptoms, emergency depart patient started on dexamethasone and Remdesivir, on 04/06 received call from nursing staff the patient was quite hypoxic and was desaturating on high-flow oxygen, discussed with school bus monitor and patient was seen by the school bus monitor and was transfused 1 unit convalescent COVID-19 plasma, patient had a bedside swallow study on 04/05 and he failed patient was NPO and started the patient Procalamine until patient had repeat swallow study, patient was also seen GI as patient has history of persistent cough and GERD, on 04/07 spoke with intensive patient had a bedside swallow study and he was able swallow clear liquids patient was started on a clear liquids by the school bus monitor and stopped Procalamine, today 04/08 patient oxygen requirement is not improving, spoke with patient is feeling better, difficulty sleeping last night, will continue present managed and monitor. (2) Pneumonia due to COVID-19 virus: Code(s): U07.1 - COVID-19; J12.89 - Other viral pneumonia Status: Acute Assessment and Plan: Continue bronchodilators, Remdesivir, Dexamethasone. oxygen supplementation. Check Influenza swab. Continue IV antibiotics that were started in the ER. Check sputum culture. (3) Acute renal failure: Qualifiers: Acute renal failure type: unspecified Qualified Code(s): N17.9 - Acute kidney failure, unspecified Code(s): N17.9 - Acute kidney failure, unspecified Status: Acute Assessment and Plan: Continue light IV hydration overnight. Monitor renal function and urine output. Avoid nephrotoxic agents, renally dose medications. (4) Hyperlipidemia: Qualifiers: Hyperlipidemia type: unspecified Qualified Code(s): E78.5 - Hyperlipidemia, unspecified Code(s): E78.5 - Hyperlipidemia, unspecified Status: Chronic Assessment and Plan: Continue pravastatin PO. (5) Chronic GERD: Code(s): K21.9 - Gastro-esophageal reflux disease without esophagitis Status: Chronic Assessment and Plan: Continue PPI therapy. (6) Adult hypothyroidism: Code(s): E03.9 - Hypothyroidism, unspecified Status: Chronic Assessment and Plan: Continue Levothyroxine PO. (7) Benign essential hypertension: Code(s): I10 - Essential (primary) hypertension Status: Chronic Assessment and Plan: Monitor blood pressure. Hold olmesartan secondary to acute renal failure and resume when appropriate. Subjective Date/time seen: 04/08/20 17:11 patient is a 50-year-old male with history of hypertension patient presented emergency department with a complaint persistent cough shortness of breath and fever patient was positive for COVID-19 on 03/28 and since then his symptoms are persisting and would not improving he presented emergency department as he was hypoxic patient was placed on high-flow oxygen which did improve symptoms, emergency depart patient started on dexamethasone and Remdesivir, on 04/06 received call from nursing staff the patient was quite hypoxic and was desaturating on high-fl
[2020-04-08] MEDS: SODIUM CHLORIDE 0.9% IV 250 ML 30 ML IV CONT (19:00)
[2020-04-08] MEDS: REMDESIVIR 100 MG/NS 250 ML 100 MG/250 ML BAG 250 MG IVPB (20:36)
[2020-04-08] MEDS: diphenhydrAMINE HCl CAP 25 MG CAPSULE PO (21:54)
[2020-04-09] VITALS (21 sets, daily range): BP systolic 119–153; BP diastolic 79–92; PULSE 72–105; RESP 20–37; TEMP 36.6–37.4; O2SAT 90–97
[2020-04-09] MEDS: ALBUTEROL SULFATE NEB 2.5 MG/0.5 ML INH INHALATION ×4 (02:27→21:29)
[2020-04-09] MEDS: CENTRAL LINE FLUSH 10 ML IV PUSH ×3 (06:01→22:20)
[2020-04-09] MEDS: LEVOTHYROXINE SODIUM 100 MCG TABLET PO (06:01)
[2020-04-09 06:09] LABS: Basophils Percent Auto 0.2 % (0.2-1.2); Eosinophils Percent Auto 0.4 % (0-4.4); Hematocrit 32.5 % (42.0-52.0); Hemoglobin 10.9 g/dL (14.0-18.0); Immature Granulocyte Absolute 0.18 K/mm3 (0.00-0.031); Lymphocytes Absolute Auto 0.64 K/mm3 (0.9-3.2); Lymphocytes Percent Auto 7.2 % (18.3-44.2); Mean Corpuscular HGB Conc 33.5 g/dl (32-36); Mean Corpuscular Volume 95.3 fl (80-100); Mean Platelet Volume 11.1 fl (7.4-10.4); Monocytes Absolute Auto 0.4 K/mm3 (0.1-0.6); Monocytes Percent Auto 4.4 % (2.6-8.5); Neutrophils Absolute Auto 7.6 K/mm3 (1.3-6.7); Neutrophils Percent Auto 85.8 % (45.5-73.1); Nucleated Red Blood Cells Perc 0.3 % (0.0-0.2); Platelet Count Result 339 k/mm3 (150-375); Red Blood Count 3.41 M/mm3 (4.6-6.20); Red Cell Distribution Width 12.5 % (11.5-14.5); White Blood Count 8.9 K/mm3 (4.5-10.0)
[2020-04-09 06:14] LABS: INR 1.1; Prothrombin Time 13.8 Seconds (11.1-14.7)
[2020-04-09 06:15] LABS: Partial Thromboplastin Time 30.2 SECONDS (22.3-36.8)
[2020-04-09 06:23] LABS: Transferrin 119 mg/dL (206-381)
[2020-04-09 06:25] LABS: Alanine Aminotransferase 50 U/L (4-50); Albumin Level 3.1 g/dL (3.5-5.1); Alkaline Phosphatase 123 U/L (38-126); Anion Gap 2 mmol/L (8-16); Aspartate Amino Transferase 50 U/L (17-59); Bilirubin,Total 0.6 mg/dL (0.2-1.3); Blood Urea Nitrogen 29 mg/dL (9-20); Calcium 8.2 mg/dL (8.4-10.2); Carbon Dioxide 34 mmol/L (22-30); Chloride 103 mmol/L (98-107); Estimated CRCL calculation 99 ml/min; Estimated Glomerular Filt Rate > 60; Glucose 134 mg/dL (75-110); Lactate Dehydrogenase 1775 U/L (313-618); Magnesium 2.6 mg/dL (1.6-2.3); Phosphorus 4.3 mg/dL (2.5-4.5); Potassium 4.2 mmol/L (3.4-5.0); Sodium 139 mmol/L (137-145)
[2020-04-09 06:29] LABS: CRP 15.1 mg/dL (<1.0)
[2020-04-09 06:38] LABS: D Dimer 19.85 ug/mL (<0.48)
[2020-04-09] MEDS: BENZONATATE 100 MG CAPSULE 200 MG PO ×3 (08:39→17:10)
[2020-04-09] MEDS: ENOXAPARIN 40 MG/0.4 ML SYRINGE SUB-Q ×2 (08:39→20:15)
[2020-04-09] MEDS: DEXAMETHASONE SOD PHOS INJ 4 MG/ML VIAL 6 MG IV PUSH (08:40)
[2020-04-09] MEDS: PANTOPRAZOLE SODIUM IV 40 MG VIAL IV PUSH (08:40)
--- NOTE | 2020-04-09 10:57 | WPDGIPROGNO ---
Progress Note: A&P Additional Plan patient appears to be tolerating liquid diet. Remains quite short of breath. Coughing seems to worsen with more solid foods. Physical exam unchanged. Impression 1. Dysphagia. Continue liquid diet advanced to soft diet when he is able to tolerate this. Consider barium swallow ordered EGD at a later date when COVID infection resolved. 2. COVID positive pneumonia. Patient is quite hypoxic. Plan is to continue supportive care and treatment as outlined by life [employer] service. Subjective Date/time seen: 04/09/20 10:57 Objective Data Vital Signs Vital Signs: Vital Signs - 24 hr 04/08/20 12:00 04/08/20 14:00 04/08/20 14:52 Temperature 97.8 F Pulse Rate 103 H 96 95 Respiratory Rate 22 H 22 H 27 H Blood Pressure 137/95 H 125/75 Pulse Oximetry 92 91 04/08/20 14:59 04/08/20 16:00 04/08/20 18:00 Temperature 97.8 F Pulse Rate 94 95 99 Respiratory Rate 30 H 28 H 22 H Blood Pressure 134/90 Pulse Oximetry 95 92 04/08/20 18:26 04/08/20 18:42 04/08/20 19:42 Temperature 98.9 F 97.7 F 98.7 F Pulse Rate 98 98 89 Respiratory Rate 31 H 33 H 30 H Blood Pressure 155/82 H 149/85 H 127/79 Pulse Oximetry 91 93 95 04/08/20 20:00 04/08/20 20:20 04/08/20 20:30 Temperature 98.7 F 98.7 F Pulse Rate 82 90 92 Respiratory Rate 32 H 31 H 28 H Blood Pressure 127/79 141/96 H Pulse Oximetry 95 94 04/08/20 20:39 04/08/20 22:00 04/09/20 00:00 Temperature 98.6 F Pulse Rate 92 101 H 83 Respiratory Rate 28 H 32 H 33 H Blood Pressure 130/85 123/85 Pulse Oximetry 92 92 97 04/09/20 02:00 04/09/20 02:20 04/09/20 02:27 Temperature Pulse Rate 72 87 87 Respiratory Rate 23 H 26 H 26 H Blood Pressure 119/91 H Pulse Oximetry 96 04/09/20 04:00 04/09/20 06:00 04/09/20 07:43 Temperature 98 F Pulse Rate 73 91 83 Respiratory Rate 23 H 36 H 20 Blood Pressure 122/81 153/86 H Pulse Oximetry 91 90 94 04/09/20 07:53 04/09/20 08:00 Temperature 99.4 F Pulse Rate 85 83 Respiratory Rate 20 27 H Blood Pressure 124/86 Pulse Oximetry 94 Intake/Output Intake/Output: Intake & Output 04/07/20 04/08/20 04/08/20 04/09/20 00:59 00:59 23:59 23:59 Intake Total 100 Output Total 500 Balance -400 Meds/Results Medications: Active Medications Generic Name Dose Route Start Last Admin Trade Name Freq PRN Reason Stop Dose Admin Acetaminophen 650 mg 04/04/20 21:45 04/08/20 05:57 Acetaminophen 325 Mg Tablet PO 650 mg Q4H PRN Administration Mild Pain (1-3) or Fever Albuterol 2.5 mg 04/06/20 14:00 04/09/20 07:42 Albuterol Sulfate Neb 2.5 Mg/0.5 Ml Inh INHALATION 2.5 mg Q6HRT KARLEE Administration Benzocaine 1 lozenge 04/06/20 08:21 04/07/20 09:20 Benzocaine/Menthol (*Bkc) 18 Ea Lozenge PO 1 lozenge PRN PRN Administration Sore Throat Benzonatate 200 mg 04/07/20 09:00 04/09/20 08:39 Benzonatate 100 Mg Capsule PO 200 mg TID KARLEE Administration Dexamethasone Sodium Phosphate 6 mg 04/06/20 09:00 04/09/20 08:40 Dexamethasone Sod Phos Inj 4 Mg/Ml Vial IV PUSH 04/15/20 09:01 6 mg DAILY KARLEE Administration Enoxaparin Sodium 40 mg 04/05/20 21:00 04/09/20 08:39 Enoxaparin 40 Mg/0.4 Ml Syringe SUB-Q 40 mg Q12HR KARLEE Administration Ceftriaxone Sodium/Dextrose 1 gm in 50 mls @ 100 mls/hr 04/05/20 21:00 04/08/20 21:05 Rocephin 1 Gm/D5w 50 Ml IVPB Infused Q24H KARLEE Infusion Dextrose 1,000 mls @ 50 mls/hr 04/05/20 16:45 Dextrose 10% IV CONT .Q20H PRN if PN is interrupted Azithromycin 500 mg in 250 mls @ 250 mls/hr 04/07/20 21:00 04/08/20 21:35 Zithromax IVPB Infused HS KARLEE Infusion Levothyroxine Sodium 100 mcg 04/05/20 06:30 04/09/20 06:01 Levothyroxine Sodium 100 Mcg Tablet PO 100 mcg DAILY@0630 KARLEE Administration Pantoprazole Sodium 40 mg 04/06/20 12:40 04/09/20 08:40 Pantoprazole Sodium Iv 40 Mg Vial IV PUSH 40 mg Q12HR KARLEE Adminis
--- NOTE | 2020-04-09 11:33 | PCDIET ---
ICU Rounding Note: Patient now on full liquid diet with intakes 25% and below. Taking some of the Ensure Enlive supplement. Recommend sending TID with all meals for 350kcal and 20g protein each. Diet appropriate, as tolerated. BUSINESS MAIL ENTRY CLERK evaluation noted. PPN has been discontinued. Would consider anti-diarrheal medication if loose stools persist. Last recorded weight is 92.1kg which is down from last review. Bowel Motility: BM x 5 on 04/08/20. Labs Reviewed: Hgb (10.9), Hct (32.5), Glu (134), BUN (29), Alb (3.1), Mani Ca (8.92) Meds Noted: Albuterol, Zithromax, Rocephin, Decadron, Synthroid, Protonix Additional Notes: No documented skin breakdown. Following daily in ICU rounds. Assessing/reassessing every 5 days.
--- NOTE | 2020-04-09 13:10 | WPDINTPN ---
Progress Note: A&P Assessment and Plan (1) Pneumonia due to COVID-19 virus: Code(s): U07.1 - COVID-19; J12.89 - Other viral pneumonia Status: Acute Assessment and Plan: patient admitted on 04/04/2020 with increasing shortness of breath, fevers, chills and cough. SARS-CoV-2 PCR PCR was positive on 03/28/2020 - chest x-ray shows persistent Diffuse lung disease without significant change, consistent with pneumonia and/or pulmonary edema and/or acute respiratory distress syndrome (ARDS). - patient currently on azithromycin and ceftriaxone which was started on 04/05/2020 - will continue Remdesivir ( started on 04/05/2020) - started on dexamethasone on 04/06/2020 - received a unit of convalescent COVID-19 plasma on 04/06/2020 will repeat 1 more unit 04/08 - continue airborne, droplet, contact isolation and precautions - inflammatory markers are elevated, will continue to trend - patient currently on high-flow oxygen therapy, Airvo, 60 L flow rate and 90% FiO2 along with 100% non-rebreather. Discussed with patient if condition worsens he is agreeable for intubation - continue Tessalon Perles with seems to have helped his cough (2) Acute respiratory failure with hypoxemia: Code(s): J96.01 - Acute respiratory failure with hypoxia Status: Acute Assessment and Plan: as above (3) Acute renal failure: Qualifiers: Acute renal failure type: unspecified Qualified Code(s): N17.9 - Acute kidney failure, unspecified Code(s): N17.9 - Acute kidney failure, unspecified Status: Acute Assessment and Plan: RESOLVED acute renal failure could be related to decreased p.o. intake secondary to coughing bouts - creatinine back to baseline, 0.9 this morning ( 1.6 on admission) - off of IV fluids - monitor urine output, ill function electrolytes (4) Chronic GERD: Code(s): K21.9 - Gastro-esophageal reflux disease without esophagitis Status: Chronic Assessment and Plan: continue IV PPI (5) Adult hypothyroidism: Code(s): E03.9 - Hypothyroidism, unspecified Status: Chronic Assessment and Plan: continue levothyroxine (6) Benign essential hypertension: Code(s): I10 - Essential (primary) hypertension Status: Chronic Assessment and Plan: blood pressure is within normal limits, will hold antihypertensives at this time (7) DVT prophylaxis: Code(s): Z29.9 - Encounter for prophylactic measures, unspecified Status: Acute Assessment and Plan: high D-dimer level. patient is on intermediate does of Lovenox at 40 mg Sub-cu Q12H (8) Dietary counseling and surveillance: Code(s): Z71.3 - Dietary counseling and surveillance Status: Acute Assessment and Plan: patient has been choking on his food question possible secondary to coughing and or some history of narrowing of the esophagus see stated he is to have vomiting in the past which improved with a pill that the physician gave him. He is unable provide any more history. Per his father, patient was at [facility] about 8-10 years ago, he use to have bouts of cough being and was unable to keep his food down and had a lot of vomiting then. He was placed on some medication which helped him with that. He was taken of that pill, does not remember when, after his symptoms improved. - was started on PPN on 04/05/2020 and staff was unable to insert NG tube for feeding due to patient's bouts of coughing - speech therapy re-evaluated patient on 04/06/2020 and cleared him for clear liquid diet, patient has been started on full liquid diet - PPN DISCONTINUED to keep fluid intake - continue Ensure Additional Plan discussed with patient and with his condition and plan of care. I answered all questions. I also discussed with the patient in details regarding possibility of intubation, and he agrees to be intubated. code status: Full code Case
--- NOTE | 2020-04-09 17:00 | PM.IMPN ---
Progress Note: A&P Assessment and Plan (1) Acute respiratory failure with hypoxemia: Code(s): J96.01 - Acute respiratory failure with hypoxia Status: Acute Assessment and Plan: Admit to IMU, telemetry, continue high flow oxygen supplementation to maintain pulse ox >94%, continuous pulse oximetry, Continue treatment for pneumonia. Monitor ABG. RT assess and treat. We will consider endotracheal intubation and mechanical ventilation if necessary. 04/09/20 17:00 patient is a 50-year-old male with history of hypertension patient presented emergency department with a complaint persistent cough shortness of breath and fever patient was positive for COVID-19 on 03/28 and since then his symptoms are persisting and would not improving he presented emergency department as he was hypoxic patient was placed on high-flow oxygen which did improve symptoms, emergency depart patient started on dexamethasone and Remdesivir, on 04/06 received call from nursing staff the patient was quite hypoxic and was desaturating on high-flow oxygen, discussed with can marker and patient was seen by the can marker and was transfused 1 unit convalescent COVID-19 plasma, patient had a bedside swallow study on 04/05 and he failed patient was NPO and started the patient Procalamine until patient had repeat swallow study, patient was also seen GI as patient has history of persistent cough and GERD, on 04/07 spoke with intensive patient had a bedside swallow study and he was able swallow clear liquids patient was started on a clear liquids by the can marker and stopped Procalamine, today 04/09 spoke with can marker patient oxygen requirement is not improving, is able to tolerate liquid diet, spoke with patient he is feeling better, will continue present managed and monitor appreciate and can marker (2) Pneumonia due to COVID-19 virus: Code(s): U07.1 - COVID-19; J12.89 - Other viral pneumonia Status: Acute Assessment and Plan: Continue bronchodilators, Remdesivir, Dexamethasone. oxygen supplementation. Check Influenza swab. Continue IV antibiotics that were started in the ER. Check sputum culture. (3) Acute renal failure: Qualifiers: Acute renal failure type: unspecified Qualified Code(s): N17.9 - Acute kidney failure, unspecified Code(s): N17.9 - Acute kidney failure, unspecified Status: Acute Assessment and Plan: Continue light IV hydration overnight. Monitor renal function and urine output. Avoid nephrotoxic agents, renally dose medications. (4) Hyperlipidemia: Qualifiers: Hyperlipidemia type: unspecified Qualified Code(s): E78.5 - Hyperlipidemia, unspecified Code(s): E78.5 - Hyperlipidemia, unspecified Status: Chronic Assessment and Plan: Continue pravastatin PO. (5) Chronic GERD: Code(s): K21.9 - Gastro-esophageal reflux disease without esophagitis Status: Chronic Assessment and Plan: Continue PPI therapy. (6) Adult hypothyroidism: Code(s): E03.9 - Hypothyroidism, unspecified Status: Chronic Assessment and Plan: Continue Levothyroxine PO. (7) Benign essential hypertension: Code(s): I10 - Essential (primary) hypertension Status: Chronic Assessment and Plan: Monitor blood pressure. Hold olmesartan secondary to acute renal failure and resume when appropriate. Subjective Date/time seen: 04/09/20 17:00 patient is a 50-year-old male with history of hypertension patient presented emergency department with a complaint persistent cough shortness of breath and fever patient was positive for COVID-19 on 03/28 and since then his symptoms are persisting and would not improving he presented emergency department as he was hypoxic patient was placed on high-flow oxygen which did improve symptoms, emergency depart patient started on dexamethasone and Remdesivir, on 04/06 received call from nursing staff the jabari
[2020-04-09] MEDS: PANTOPRAZOLE 40 MG TABLET PO (20:16)
[2020-04-09] MEDS: diphenhydrAMINE HCl CAP 25 MG CAPSULE PO (22:13)
[2020-04-10] VITALS (21 sets, daily range): BP systolic 118–145; BP diastolic 79–96; PULSE 68–104; RESP 20–36; TEMP 36.2–37.1; O2SAT 88–96
[2020-04-10] MEDS: ALBUTEROL SULFATE NEB 2.5 MG/0.5 ML INH INHALATION ×4 (03:42→20:30)
[2020-04-10] MEDS: LEVOTHYROXINE SODIUM 100 MCG TABLET PO (05:01)
[2020-04-10] MEDS: CENTRAL LINE FLUSH 10 ML IV PUSH ×3 (05:01→22:35)
[2020-04-10 05:06] LABS: Basophils Percent Auto 0.1 % (0.2-1.2); Eosinophils Percent Auto 0.2 % (0-4.4); Hematocrit 34.2 % (42.0-52.0); Hemoglobin 11.5 g/dL (14.0-18.0); Immature Granulocyte Absolute 0.22 K/mm3 (0.00-0.031); Immature Granulocyte Percent A 2.3 % (0-0.5); Lymphocytes Absolute Auto 0.71 K/mm3 (0.9-3.2); Lymphocytes Percent Auto 7.5 % (18.3-44.2); Mean Corpuscular HGB Conc 33.6 g/dl (32-36); Mean Corpuscular Hemoglobin 32.1 pg (26-34); Mean Corpuscular Volume 95.5 fl (80-100); Monocytes Absolute Auto 0.4 K/mm3 (0.1-0.6); Monocytes Percent Auto 4.2 % (2.6-8.5); Neutrophils Absolute Auto 8.1 K/mm3 (1.3-6.7); Neutrophils Percent Auto 85.7 % (45.5-73.1); Nucleated Red Blood Cells Perc 0.2 % (0.0-0.2); Platelet Count Result 367 k/mm3 (150-375); Red Blood Count 3.58 M/mm3 (4.6-6.20); Red Cell Distribution Width 12.4 % (11.5-14.5); White Blood Count 9.5 K/mm3 (4.5-10.0)
[2020-04-10 05:25] LABS: Alanine Aminotransferase 45 U/L (4-50); Albumin Level 3.1 g/dL (3.5-5.1); Alkaline Phosphatase 130 U/L (38-126); Anion Gap 4 mmol/L (8-16); Aspartate Amino Transferase 42 U/L (17-59); Bilirubin,Total 0.6 mg/dL (0.2-1.3); Blood Urea Nitrogen 24 mg/dL (9-20); CRP 7.2 mg/dL (<1.0); Calcium 8.2 mg/dL (8.4-10.2); Carbon Dioxide 32 mmol/L (22-30); Chloride 101 mmol/L (98-107); Estimated CRCL calculation 88 ml/min; Estimated Glomerular Filt Rate > 60; Glucose 137 mg/dL (75-110); Magnesium 2.5 mg/dL (1.6-2.3); Phosphorus 3.7 mg/dL (2.5-4.5); Potassium 3.9 mmol/L (3.4-5.0); Sodium 137 mmol/L (137-145); Triglycerides 136 mg/dL (<150)
[2020-04-10] MEDS: BENZONATATE 100 MG CAPSULE 200 MG PO ×3 (08:08→18:08)
[2020-04-10] MEDS: PANTOPRAZOLE 40 MG TABLET PO ×2 (08:08→20:13)
[2020-04-10] MEDS: DEXAMETHASONE SOD PHOS INJ 4 MG/ML VIAL 6 MG IV PUSH (08:08)
[2020-04-10] MEDS: ENOXAPARIN 40 MG/0.4 ML SYRINGE SUB-Q ×2 (08:09→20:12)
--- NOTE | 2020-04-10 09:05 | WPDGIPROGNO ---
Progress Note: A&P Additional Plan Patient remains quite short of breath. Tolerating liquid diet but has difficulty with more solid foods which cause him to cough. Physical exam reveals a benign abdomen. impression dysphagia. May be oropharyngeal. Agree with speech therapy swallowing therapy assessment. If symptoms persist after resolution of infection will consider endoscopy at a later date when it is safe to proceed. Continue empiric proton pump inhibitor for possible acid reflux. Ensure and other liquid nutrition being tolerated at this time will continue. 2. Respiratory failure. Patient on high flow oxygen supplementation. 3. COVID positive pneumonia. Subjective Date/time seen: 04/10/20 09:05 Objective Data Vital Signs Vital Signs: Vital Signs - 24 hr 04/09/20 10:00 04/09/20 12:00 04/09/20 13:39 Temperature 98.6 F Pulse Rate 77 99 101 H Respiratory Rate 25 H 34 H 20 Blood Pressure 122/80 134/90 Pulse Oximetry 94 90 04/09/20 13:49 04/09/20 14:00 04/09/20 16:00 Temperature 98.6 F Pulse Rate 98 101 H 91 Respiratory Rate 20 37 H 30 H Blood Pressure 136/83 132/79 Pulse Oximetry 97 95 04/09/20 18:00 04/09/20 20:00 04/09/20 21:29 Temperature 98.7 F Pulse Rate 105 H 97 85 Respiratory Rate 25 H 30 H 24 H Blood Pressure 142/81 H 129/92 H Pulse Oximetry 90 96 04/09/20 21:31 04/09/20 21:38 04/09/20 22:00 Temperature Pulse Rate 99 78 81 Respiratory Rate 26 H 30 H 31 H Blood Pressure 137/91 H Pulse Oximetry 96 95 04/10/20 00:00 04/10/20 02:00 04/10/20 03:42 Temperature 98.4 F Pulse Rate 79 76 103 H Respiratory Rate 25 H 20 32 H Blood Pressure 131/87 120/82 Pulse Oximetry 94 90 04/10/20 03:46 04/10/20 03:49 04/10/20 04:00 Temperature 98.2 F Pulse Rate 88 82 82 Respiratory Rate 28 H 30 H 26 H Blood Pressure 136/92 H Pulse Oximetry 93 93 04/10/20 06:00 04/10/20 08:00 04/10/20 08:22 Temperature 98.5 F Pulse Rate 68 74 99 Respiratory Rate 21 H 21 H 31 H Blood Pressure 118/80 139/81 Pulse Oximetry 93 93 04/10/20 08:27 Temperature Pulse Rate Respiratory Rate Blood Pressure Pulse Oximetry 88 L Intake/Output Intake/Output: Intake & Output 04/08/20 04/08/20 04/09/20 04/10/20 00:59 23:59 23:59 23:59 Intake Total 1920 480 Output Total 1175 700 Balance 745 -220 Meds/Results Medications: Active Medications Generic Name Dose Route Start Last Admin Trade Name Freq PRN Reason Stop Dose Admin Acetaminophen 650 mg 04/04/20 21:45 04/08/20 05:57 Acetaminophen 325 Mg Tablet PO 650 mg Q4H PRN Administration Mild Pain (1-3) or Fever Albuterol 2.5 mg 04/06/20 14:00 04/10/20 08:21 Albuterol Sulfate Neb 2.5 Mg/0.5 Ml Inh INHALATION 2.5 mg Q6HRT KARLEE Administration Benzocaine 1 lozenge 04/06/20 08:21 04/07/20 09:20 Benzocaine/Menthol (*Bkc) 18 Ea Lozenge PO 1 lozenge PRN PRN Administration Sore Throat Benzonatate 200 mg 04/07/20 09:00 04/10/20 08:08 Benzonatate 100 Mg Capsule PO 200 mg TID KARLEE Administration Dexamethasone Sodium Phosphate 6 mg 04/06/20 09:00 04/10/20 08:08 Dexamethasone Sod Phos Inj 4 Mg/Ml Vial IV PUSH 04/15/20 09:01 6 mg DAILY KARLEE Administration Diphenhydramine HCl 25 mg 04/09/20 17:20 04/09/20 22:13 Diphenhydramine Hcl Cap 25 Mg Capsule PO 25 mg HS PRN Administration Insomnia Enoxaparin Sodium 40 mg 04/05/20 21:00 04/10/20 08:09 Enoxaparin 40 Mg/0.4 Ml Syringe SUB-Q 40 mg Q12HR KARLEE Administration Ceftriaxone Sodium/Dextrose 1 gm in 50 mls @ 100 mls/hr 04/05/20 21:00 04/09/20 20:45 Rocephin 1 Gm/D5w 50 Ml IVPB Infused Q24H KARLEE Infusion Azithromycin 500 mg in 250 mls @ 250 mls/hr 04/07/20 21:00 04/09/20 21:15 Zithromax IVPB Infused HS KARLEE Infusion Levothyroxine Sodium 100 mcg 04/05/20 06:30 04/10/20 05:01 Levothyroxine Sodium 100 Mcg Tablet PO 100 mcg DAILY@0630 KARLEE Administr
--- NOTE | 2020-04-10 10:36 | PCDIET ---
ICU Rounding Note: Patient consumed around 60% of meals yesterday on full liquid diet with Ensure Enlive TID. Recommend continuing present diet with supplements. Last recorded weight is 90.2kg which is decreased from last review, despite +I/O. Bowel Motility: BM x 1 on 04/09/20. Labs Reviewed: Hgb (11.5), Hct (34.2), Glu (137), BUN (24), Alb (3.1), Mani Ca (8.92) Meds Noted: Albuterol, Zithromax, Rocephin, Decadron, Protonix, Synthroid Additional Notes: No documented skin breakdown. Following daily in ICU rounds. Assessing/reassessing every 5 days.
--- NOTE | 2020-04-10 11:36 | WPDINTPN ---
Progress Note: A&P Assessment and Plan (1) Pneumonia due to COVID-19 virus: Code(s): U07.1 - COVID-19; J12.89 - Other viral pneumonia Status: Acute Assessment and Plan: patient admitted on 04/04/2020 with increasing shortness of breath, fevers, chills and cough. SARS-CoV-2 PCR PCR was positive on 03/28/2020 - chest x-ray shows persistent Diffuse lung disease without significant change, consistent with pneumonia and/or pulmonary edema and/or acute respiratory distress syndrome (ARDS). - patient currently on azithromycin and ceftriaxone which was started on 04/05/2020 - Completed course of Remdesivir ( started on 04/05/2020) - continue which was started on dexamethasone on 04/06/2020 - received a unit of convalescent COVID-19 plasma on 04/06/2020 will repeat 1 more unit 04/08 - continue airborne, droplet, contact isolation and precautions - inflammatory markers are elevated, will continue to trend - patient currently on high-flow oxygen therapy, Airvo, 60 L flow rate and 75%% FiO2. patient agreeable for intubation if worsens - continue Tessalon Perles with seems to have helped his cough (2) Acute respiratory failure with hypoxemia: Code(s): J96.01 - Acute respiratory failure with hypoxia Status: Acute Assessment and Plan: as above (3) Acute renal failure: Qualifiers: Acute renal failure type: unspecified Qualified Code(s): N17.9 - Acute kidney failure, unspecified Code(s): N17.9 - Acute kidney failure, unspecified Status: Acute Assessment and Plan: RESOLVED acute renal failure could be related to decreased p.o. intake secondary to coughing bouts - creatinine back to baseline - off of IV fluids - monitor urine output, ill function electrolytes (4) Chronic GERD: Code(s): K21.9 - Gastro-esophageal reflux disease without esophagitis Status: Chronic Assessment and Plan: continue IV PPI (5) Adult hypothyroidism: Code(s): E03.9 - Hypothyroidism, unspecified Status: Chronic Assessment and Plan: continue levothyroxine (6) Benign essential hypertension: Code(s): I10 - Essential (primary) hypertension Status: Chronic Assessment and Plan: blood pressure is within normal limits, will hold antihypertensives at this time (7) DVT prophylaxis: Code(s): Z29.9 - Encounter for prophylactic measures, unspecified Status: Acute Assessment and Plan: high D-dimer level. patient is on intermediate does of Lovenox at 40 mg Sub-cu Q12H (8) Dietary counseling and surveillance: Code(s): Z71.3 - Dietary counseling and surveillance Status: Acute Assessment and Plan: patient has been choking on his food question possible secondary to coughing and or some history of narrowing of the esophagus see stated he is to have vomiting in the past which improved with a pill that the physician gave him. He is unable provide any more history. Per his father, patient was at [facility] about 8-10 years ago, he use to have bouts of cough being and was unable to keep his food down and had a lot of vomiting then. He was placed on some medication which helped him with that. He was taken of that pill, does not remember when, after his symptoms improved. - was started on PPN on 04/05/2020 and staff was unable to insert NG tube for feeding due to patient's bouts of coughing - speech therapy re-evaluated patient on 04/06/2020 and cleared him for clear liquid diet, patient has been started on full liquid diet - PPN DISCONTINUED to keep fluid intake - continue Ensure - patient had another swallow eval testing today and diet changed to nectar thick Additional Plan discussed with patient and with his condition and plan of care. I answered all questions. code status: Full code critical care time spent: 30 minutes Due to a high probability of clinically significant, lif
--- NOTE | 2020-04-10 15:59 | PM.IMPN ---
Progress Note: A&P Assessment and Plan (1) Acute respiratory failure with hypoxemia: Code(s): J96.01 - Acute respiratory failure with hypoxia Status: Acute Assessment and Plan: Admit to IMU, telemetry, continue high flow oxygen supplementation to maintain pulse ox >94%, continuous pulse oximetry, Continue treatment for pneumonia. Monitor ABG. RT assess and treat. We will consider endotracheal intubation and mechanical ventilation if necessary. 04/10/20 15:59 patient is a 50-year-old male with history of hypertension patient presented emergency department with a complaint persistent cough shortness of breath and fever patient was positive for COVID-19 on 03/28 and since then his symptoms are persisting and would not improving he presented emergency department as he was hypoxic patient was placed on high-flow oxygen which did improve symptoms, emergency depart patient started on dexamethasone and Remdesivir, on 04/06 received call from nursing staff the patient was quite hypoxic and was desaturating on high-flow oxygen, discussed with captain room service and patient was seen by the captain room service and was transfused 1 unit convalescent COVID-19 plasma, patient had a bedside swallow study on 04/05 and he failed patient was NPO and started the patient Procalamine until patient had repeat swallow study, patient was also seen GI as patient has history of persistent cough and GERD, on 04/07 spoke with intensive patient had a bedside swallow study and he was able swallow clear liquids patient was started on a clear liquids by the captain room service and stopped Procalamine, today 04/10, today again patient was seen by speech therapy and had a bedside swallow study patient was not able to swallow other than liquids without having persistent cough, the speech therapist recommended nectar thick liquids, again spoke with captain room service patient oxygen requirement is not improving, is able to tolerate liquid diet, spoke with patient he is feeling better, states feels his breathing is getting better, will continue present managed and monitor appreciate and captain room service (2) Pneumonia due to COVID-19 virus: Code(s): U07.1 - COVID-19; J12.89 - Other viral pneumonia Status: Acute Assessment and Plan: Continue bronchodilators, Remdesivir, Dexamethasone. oxygen supplementation. Check Influenza swab. Continue IV antibiotics that were started in the ER. Check sputum culture. (3) Acute renal failure: Qualifiers: Acute renal failure type: unspecified Qualified Code(s): N17.9 - Acute kidney failure, unspecified Code(s): N17.9 - Acute kidney failure, unspecified Status: Acute Assessment and Plan: Continue light IV hydration overnight. Monitor renal function and urine output. Avoid nephrotoxic agents, renally dose medications. (4) Hyperlipidemia: Qualifiers: Hyperlipidemia type: unspecified Qualified Code(s): E78.5 - Hyperlipidemia, unspecified Code(s): E78.5 - Hyperlipidemia, unspecified Status: Chronic Assessment and Plan: Continue pravastatin PO. (5) Chronic GERD: Code(s): K21.9 - Gastro-esophageal reflux disease without esophagitis Status: Chronic Assessment and Plan: Continue PPI therapy. (6) Adult hypothyroidism: Code(s): E03.9 - Hypothyroidism, unspecified Status: Chronic Assessment and Plan: Continue Levothyroxine PO. (7) Benign essential hypertension: Code(s): I10 - Essential (primary) hypertension Status: Chronic Assessment and Plan: Monitor blood pressure. Hold olmesartan secondary to acute renal failure and resume when appropriate. Subjective Date/time seen: 04/10/20 15:59 patient is a 50-year-old male with history of hypertension patient presented emergency department with a complaint persistent cough shortness of breath and fever patient was positive for COVID-19 on 03/28 and since then his symptoms a
[2020-04-10] MEDS: ACETAMINOPHEN 325 MG TABLET 650 MG PO (18:08)
[2020-04-10] MEDS: diphenhydrAMINE HCl CAP 25 MG CAPSULE PO (22:34)
[2020-04-11] VITALS (22 sets, daily range): BP systolic 107–133; BP diastolic 65–93; PULSE 60–109; RESP 18–40; TEMP 36.1–37.3; O2SAT 88–98
[2020-04-11] MEDS: LEVOTHYROXINE SODIUM 100 MCG TABLET PO (05:45)
[2020-04-11] MEDS: CENTRAL LINE FLUSH 10 ML IV PUSH ×3 (05:47→21:33)
[2020-04-11] MEDS: ACETAMINOPHEN 325 MG TABLET 650 MG PO (06:02)
[2020-04-11 06:03] LABS: Basophils Percent Auto 0.3 % (0.2-1.2); Eosinophils Absolute Auto 0.1 K/mm3 (0-0.3); Eosinophils Percent Auto 0.6 % (0-4.4); Hematocrit 35.8 % (42.0-52.0); Immature Granulocyte Absolute 0.24 K/mm3 (0.00-0.031); Immature Granulocyte Percent A 2.1 % (0-0.5); Lymphocytes Absolute Auto 0.86 K/mm3 (0.9-3.2); Lymphocytes Percent Auto 7.5 % (18.3-44.2); Mean Corpuscular HGB Conc 33.5 g/dl (32-36); Mean Corpuscular Hemoglobin 31.7 pg (26-34); Mean Corpuscular Volume 94.7 fl (80-100); Mean Platelet Volume 10.8 fl (7.4-10.4); Monocytes Absolute Auto 0.5 K/mm3 (0.1-0.6); Monocytes Percent Auto 3.9 % (2.6-8.5); Neutrophils Absolute Auto 9.8 K/mm3 (1.3-6.7); Neutrophils Percent Auto 85.6 % (45.5-73.1); Nucleated Red Blood Cells Absolute Auto 0.1 K/mm3 (0.0-0.012); Nucleated Red Blood Cells Perc 0.4 % (0.0-0.2); Platelet Count Result 376 k/mm3 (150-375); Red Blood Count 3.78 M/mm3 (4.6-6.20); Red Cell Distribution Width 12.2 % (11.5-14.5); White Blood Count 11.4 K/mm3 (4.5-10.0)
[2020-04-11 06:18] LABS: Alanine Aminotransferase 41 U/L (4-50); Albumin Level 3.2 g/dL (3.5-5.1); Alkaline Phosphatase 128 U/L (38-126); Anion Gap 5 mmol/L (8-16); Aspartate Amino Transferase 39 U/L (17-59); Bilirubin,Total 0.7 mg/dL (0.2-1.3); Blood Urea Nitrogen 26 mg/dL (9-20); CRP 4.6 mg/dL (<1.0); Calcium 8.5 mg/dL (8.4-10.2); Carbon Dioxide 36 mmol/L (22-30); Chloride 98 mmol/L (98-107); Estimated CRCL calculation 99 ml/min; Estimated Glomerular Filt Rate > 60; Glucose 113 mg/dL (75-110); Lactate Dehydrogenase 1616 U/L (313-618); Magnesium 2.4 mg/dL (1.6-2.3); Phosphorus 4.1 mg/dL (2.5-4.5); Potassium 4.2 mmol/L (3.4-5.0); Sodium 139 mmol/L (137-145)
[2020-04-11 06:36] LABS: D Dimer 18.71 ug/mL (<0.48)
[2020-04-11] MEDS: BENZONATATE 100 MG CAPSULE 200 MG PO ×3 (08:21→16:25)
[2020-04-11] MEDS: ENOXAPARIN 40 MG/0.4 ML SYRINGE SUB-Q ×2 (08:22→20:30)
[2020-04-11] MEDS: DEXAMETHASONE SOD PHOS INJ 4 MG/ML VIAL 6 MG IV PUSH (08:22)
[2020-04-11] MEDS: PANTOPRAZOLE 40 MG TABLET PO ×2 (08:23→21:32)
[2020-04-11] MEDS: ALBUTEROL SULFATE NEB 2.5 MG/0.5 ML INH INHALATION ×4 (08:43→20:15)
[2020-04-11] MEDS: BENZOCAINE/MENTHOL (*BKC) 18 EA LOZENGE 1 LOZENGE PO ×3 (10:32→17:54)
--- NOTE | 2020-04-11 11:06 | PCDIET ---
ICU Rounding Note: Patient now on nectar thickened liquids, per NEONATAL SURGEON recommendations. Recommend continuing Ensure Enlive TID with full liquid diet (thickened) which will provide total of 1050kcal and 60g protein daily, if all consumed. Last recorded weight is 92.6kg which is increased from last review (down from admission). Bowel Motility: BM x 1 on 04/10/20. Labs Reviewed: Hgb (12.0), Hct (35.8), Glu (113), BUN (26), Alb (3.2) Meds Noted: Albuterol, Zithromax, Rocephin, Decadron, Protonix Additional Notes: No documented skin breakdown. Following daily in ICU rounds. Assessing/reassessing every 5 days.
--- NOTE | 2020-04-11 13:07 | WPDINTPN ---
Progress Note: A&P Assessment and Plan (1) Pneumonia due to COVID-19 virus: Code(s): U07.1 - COVID-19; J12.89 - Other viral pneumonia Status: Acute Assessment and Plan: patient admitted on 04/04/2020 with increasing shortness of breath, fevers, chills and cough. SARS-CoV-2 PCR PCR was positive on 03/28/2020 - chest x-ray shows persistent Diffuse lung disease without significant change, consistent with pneumonia and/or pulmonary edema and/or acute respiratory distress syndrome (ARDS). - patient currently on azithromycin and ceftriaxone which was started on 04/05/2020. Will discontinue after a 5 day course - Completed course of Remdesivir ( started on 04/05/2020) - continue dexamethasonewhich was started on d 04/06/2020 - received a unit of convalescent COVID-19 plasma on 04/06/2020 will repeat 1 more unit 04/08 - continue airborne, droplet, contact isolation and precautions - inflammatory markers are elevated, will continue to trend - patient currently on high-flow oxygen therapy, Airvo, 60 L flow rate and 90 % FiO2. patient agreeable for intubation if worsens - continue Tessalon Perles with seems to have helped his cough. add dextromethorphan - will give dose of Lasix today (2) Acute respiratory failure with hypoxemia: Code(s): J96.01 - Acute respiratory failure with hypoxia Status: Acute Assessment and Plan: as above (3) Acute renal failure: Qualifiers: Acute renal failure type: unspecified Qualified Code(s): N17.9 - Acute kidney failure, unspecified Code(s): N17.9 - Acute kidney failure, unspecified Status: Acute Assessment and Plan: RESOLVED acute renal failure could be related to decreased p.o. intake secondary to coughing bouts - creatinine back to baseline - off of IV fluids - monitor urine output, ill function electrolytes - Lasix IV today (4) Chronic GERD: Code(s): K21.9 - Gastro-esophageal reflux disease without esophagitis Status: Chronic Assessment and Plan: continue IV PPI (5) Adult hypothyroidism: Code(s): E03.9 - Hypothyroidism, unspecified Status: Chronic Assessment and Plan: continue levothyroxine (6) Benign essential hypertension: Code(s): I10 - Essential (primary) hypertension Status: Chronic Assessment and Plan: blood pressure is within normal limits, will hold antihypertensives at this time (7) DVT prophylaxis: Code(s): Z29.9 - Encounter for prophylactic measures, unspecified Status: Acute Assessment and Plan: high D-dimer level. patient is on intermediate does of Lovenox at 40 mg Sub-cu Q12H (8) Dietary counseling and surveillance: Code(s): Z71.3 - Dietary counseling and surveillance Status: Acute Assessment and Plan: patient has been choking on his food question possible secondary to coughing and or some history of narrowing of the esophagus see stated he is to have vomiting in the past which improved with a pill that the physician gave him. He is unable provide any more history. Per his father, patient was at [facility] about 8-10 years ago, he use to have bouts of cough being and was unable to keep his food down and had a lot of vomiting then. He was placed on some medication which helped him with that. He was taken of that pill, does not remember when, after his symptoms improved. - was started on PPN on 04/05/2020 and staff was unable to insert NG tube for feeding due to patient's bouts of coughing - speech therapy re-evaluated patient on 04/06/2020 and cleared him for clear liquid diet, patient has been started on full liquid diet - PPN DISCONTINUED to keep fluid intake - continue Ensure - patient had another swallow eval testing today and diet changed to nectar thick Additional Plan discussed with patient and with his condition and plan of care. I answered all questions. code status: Ahmet
[2020-04-11] MEDS: FUROSEMIDE INJ 40 MG/4 ML VIAL IV PUSH (14:28)
--- NOTE | 2020-04-11 16:28 | PM.IMPN ---
Progress Note: A&P Assessment and Plan (1) Acute respiratory failure with hypoxemia: Code(s): J96.01 - Acute respiratory failure with hypoxia Status: Acute Assessment and Plan: patient is a 50-year-old male with history of hypertension patient presented emergency department with a complaint persistent cough shortness of breath and fever patient was positive for COVID-19 on 03/28 and since then his symptoms are persisting and would not improving he presented emergency department as he was hypoxic patient was placed on high-flow oxygen which did improve symptoms, emergency depart patient started on dexamethasone and Remdesivir, on 04/06 received call from nursing staff the patient was quite hypoxic and was desaturating on high-flow oxygen, discussed with restaurant assistant and patient was seen by the restaurant assistant and was transfused 1 unit convalescent COVID-19 plasma, patient had a bedside swallow study on 04/05 and he failed patient was NPO and started the patient Procalamine until patient had repeat swallow study, patient was also seen GI as patient has history of persistent cough and GERD, on 04/07 spoke with intensive patient had a bedside swallow study and he was able swallow clear liquids patient was started on a clear liquids by the restaurant assistant and stopped Procalamine, today 04/10,patient was seen by speech therapy and had a bedside swallow study patient was not able to swallow other than liquids without having persistent cough, the speech therapist recommended nectar thick liquids, again spoke with restaurant assistant patient oxygen requirement is not improving, is able to tolerate liquid diet. 04/11, pt remains stable on high flow oxygen if worsens will need intubation. Pt hasd rpt swallow test today started on nectar thick (2) Pneumonia due to COVID-19 virus: Code(s): U07.1 - COVID-19; J12.89 - Other viral pneumonia Status: Acute Assessment and Plan: Continue bronchodilators, Remdesivir, Dexamethasone. oxygen supplementation. Check Influenza swab. Continue IV antibiotics that were started in the ER. Check sputum culture. (3) Acute renal failure: Qualifiers: Acute renal failure type: unspecified Qualified Code(s): N17.9 - Acute kidney failure, unspecified Code(s): N17.9 - Acute kidney failure, unspecified Status: Acute Assessment and Plan: Continue light IV hydration overnight. Monitor renal function and urine output. Avoid nephrotoxic agents, renally dose medications. (4) Hyperlipidemia: Qualifiers: Hyperlipidemia type: unspecified Qualified Code(s): E78.5 - Hyperlipidemia, unspecified Code(s): E78.5 - Hyperlipidemia, unspecified Status: Chronic Assessment and Plan: Continue pravastatin PO. (5) Chronic GERD: Code(s): K21.9 - Gastro-esophageal reflux disease without esophagitis Status: Chronic Assessment and Plan: Continue PPI therapy. (6) Adult hypothyroidism: Code(s): E03.9 - Hypothyroidism, unspecified Status: Chronic Assessment and Plan: Continue Levothyroxine PO. (7) Benign essential hypertension: Code(s): I10 - Essential (primary) hypertension Status: Chronic Assessment and Plan: Monitor blood pressure. Hold olmesartan secondary to acute renal failure and resume when appropriate. Subjective Date/time seen: 04/11/20 16:28 Interval history: Patient admitted on 04/04/2020 with increasing shortness of breath, fevers, chills and cough. COVID positive on 03/28/2020. Pt is stable on high flow oxygen in ICU Review of Systems Review of Systems: All systems reviewed & are unremarkable except as noted in HPI and below Exam Narrative: Exam Narrative: Patient is comfortable, NAD HEENT: neck no retraction patient is on high-flow oxygen LUNGS: normal respiratory effort ABD: not distended Lower extremities: no edema SKIN: nonjaundiced Neuro: patient has a g
--- NOTE | 2020-04-11 17:06 | WPDGIPROGNO ---
Progress Note: A&P Assessment and Plan (1) Dysphagia: Code(s): R13.10 - Dysphagia, unspecified Status: Acute Assessment and Plan: Patient appears to tolerate full liquid diet with supplements such as Ensure. Coughing seems to limit more significant intake. speech therapy following to assist with dietary intake. Will continue speech swallow therapy for the future maintain intake with Ensure and dietary liquid supplements at this point (2) Pneumonia due to COVID-19 virus: Code(s): U07.1 - COVID-19; J12.89 - Other viral pneumonia Status: Acute (3) Cognitive impairment: Code(s): R41.89 - Other symptoms and signs involving cognitive functions and awareness Status: Acute Subjective Date/time seen: 04/11/20 17:06 Patient remains in the ICU. Continued hypoxemia. Very short of breath with coughing. This seems to limit oral intake. Exam Narrative: Exam Narrative: Exam unchanged. Abdomen benign. Objective Data Vital Signs Vital Signs: Vital Signs - 24 hr 04/10/20 18:00 04/10/20 20:00 04/10/20 20:30 Temperature 98.6 F Pulse Rate 91 101 H 90 Respiratory Rate 30 H 30 H 29 H Blood Pressure 141/81 H 145/90 H Pulse Oximetry 93 92 91 04/10/20 20:40 04/10/20 22:00 04/11/20 00:00 Temperature 97.9 F Pulse Rate 93 85 71 Respiratory Rate 25 H 23 H 19 Blood Pressure 139/94 H 121/85 Pulse Oximetry 95 91 04/11/20 02:00 04/11/20 04:00 04/11/20 06:00 Temperature 97.8 F Pulse Rate 76 84 109 H Respiratory Rate 19 22 H Blood Pressure 117/83 126/84 Pulse Oximetry 97 90 04/11/20 06:30 04/11/20 08:00 04/11/20 08:35 Temperature 98.7 F Pulse Rate 84 60 105 H Respiratory Rate 22 H 30 H 24 H Blood Pressure 116/93 H 133/88 Pulse Oximetry 94 94 90 04/11/20 08:45 04/11/20 10:00 04/11/20 11:00 Temperature Pulse Rate 103 H 60 Respiratory Rate 25 H 30 H Blood Pressure 107/65 Pulse Oximetry 94 98 04/11/20 12:00 04/11/20 13:00 04/11/20 14:00 Temperature 97.0 F L Pulse Rate 96 91 Respiratory Rate 18 Blood Pressure 131/90 Pulse Oximetry 95 90 94 04/11/20 14:40 04/11/20 14:45 04/11/20 14:55 Temperature Pulse Rate 94 94 96 Respiratory Rate 23 H 23 H 23 H Blood Pressure Pulse Oximetry 96 04/11/20 16:00 Temperature 97.3 F L Pulse Rate 105 H Respiratory Rate 30 H Blood Pressure 120/89 Pulse Oximetry 90 Intake/Output Intake/Output: Intake & Output 04/08/20 04/09/20 04/10/20 04/11/20 23:59 23:59 23:59 23:59 Intake Total 1920 2020 600 Output Total 1175 3120 7990 Balance [phone] -[phone] Meds/Results Medications: Active Medications Generic Name Dose Route Start Last Admin Trade Name Freq PRN Reason Stop Dose Admin Acetaminophen 650 mg 04/04/20 21:45 04/11/20 06:02 Acetaminophen 325 Mg Tablet PO 650 mg Q4H PRN Administration Mild Pain (1-3) or Fever Albuterol 2.5 mg 04/06/20 14:00 04/11/20 14:49 Albuterol Sulfate Neb 2.5 Mg/0.5 Ml Inh INHALATION 2.5 mg Q6HRT KARLEE Administration Benzocaine 1 lozenge 04/06/20 08:21 04/11/20 13:05 Benzocaine/Menthol (*Bkc) 18 Ea Lozenge PO 1 lozenge PRN PRN Administration Sore Throat Benzonatate 200 mg 04/07/20 09:00 04/11/20 16:25 Benzonatate 100 Mg Capsule PO 200 mg TID KARLEE Administration Dexamethasone Sodium Phosphate 6 mg 04/06/20 09:00 04/11/20 08:22 Dexamethasone Sod Phos Inj 4 Mg/Ml Vial IV PUSH 04/15/20 09:01 6 mg DAILY KARLEE Administration Dextromethorphan Polistirix 60 mg 04/11/20 13:11 Dextromethorphan Polistirex 60 Mg/10 Ml Syringe PO Q12H PRN Cough Diphenhydramine HCl 25 mg 04/09/20 17:20 04/10/20 22:34 Diphenhydramine Hcl Cap 25 Mg Capsule PO 25 mg HS PRN Administration Insomnia Enoxaparin Sodium 40 mg 04/05/20 21:00 04/11/20 08:22 Enoxaparin 40 Mg/0.4 Ml Syringe SUB-Q 40 mg Q12HR KARLEE Administration Ceftriaxone Sodium/Dextrose 1 gm in 50 mls @ 100 m
--- NOTE | 2020-04-11 19:45 | PC.NURSE ---
Patient sat up on the side of the bed, dangled legs. Patient then transitioned to chair for a short time, approximately 5 minutes. Patient saturation dropped with 50L 85% and NRB. Once back in bed, patient was able to recover to low 90's oxygenation.
[2020-04-11] MEDS: diphenhydrAMINE HCl CAP 25 MG CAPSULE PO (20:25)
[2020-04-11] MEDS: DEXTROMETHORPHAN POLISTIREX 60 MG/10 ML SYRINGE PO (20:28)
[2020-04-12] VITALS (24 sets, daily range): BP systolic 100–140; BP diastolic 63–99; PULSE 83–130; RESP 16–43; TEMP 36.4–36.9; O2SAT 84–98
[2020-04-12] MEDS: ALBUTEROL SULFATE NEB 2.5 MG/0.5 ML INH INHALATION ×4 (02:16→20:45)
[2020-04-12] MEDS: CENTRAL LINE FLUSH 10 ML IV PUSH ×3 (06:01→20:38)
[2020-04-12] MEDS: LEVOTHYROXINE SODIUM 100 MCG TABLET PO (06:02)
[2020-04-12 06:05] LABS: Basophils Percent Auto 0.2 % (0.2-1.2); Eosinophils Absolute Auto 0.1 K/mm3 (0-0.3); Eosinophils Percent Auto 0.4 % (0-4.4); Hematocrit 35.5 % (42.0-52.0); Hemoglobin 12.1 g/dL (14.0-18.0); Immature Granulocyte Absolute 0.19 K/mm3 (0.00-0.031); Immature Granulocyte Percent A 1.5 % (0-0.5); Lymphocytes Absolute Auto 0.94 K/mm3 (0.9-3.2); Lymphocytes Percent Auto 7.5 % (18.3-44.2); Mean Corpuscular HGB Conc 34.1 g/dl (32-36); Mean Corpuscular Hemoglobin 32.5 pg (26-34); Mean Corpuscular Volume 95.4 fl (80-100); Mean Platelet Volume 10.6 fl (7.4-10.4); Monocytes Absolute Auto 0.4 K/mm3 (0.1-0.6); Monocytes Percent Auto 3.5 % (2.6-8.5); Neutrophils Absolute Auto 10.9 K/mm3 (1.3-6.7); Neutrophils Percent Auto 86.9 % (45.5-73.1); Nucleated Red Blood Cells Perc 0.2 % (0.0-0.2); Platelet Count Result 380 k/mm3 (150-375); Red Blood Count 3.72 M/mm3 (4.6-6.20); Red Cell Distribution Width 12.2 % (11.5-14.5); White Blood Count 12.5 K/mm3 (4.5-10.0)
[2020-04-12 06:24] LABS: Alanine Aminotransferase 53 U/L (4-50); Albumin Level 3.3 g/dL (3.5-5.1); Alkaline Phosphatase 127 U/L (38-126); Anion Gap 3 mmol/L (8-16); Aspartate Amino Transferase 50 U/L (17-59); Bilirubin,Total 0.6 mg/dL (0.2-1.3); Blood Urea Nitrogen 30 mg/dL (9-20); CRP 5.4 mg/dL (<1.0); Calcium 8.3 mg/dL (8.4-10.2); Carbon Dioxide 39 mmol/L (22-30); Chloride 95 mmol/L (98-107); Estimated CRCL calculation 90 ml/min; Estimated Glomerular Filt Rate > 60; Glucose 120 mg/dL (75-110); Magnesium 2.5 mg/dL (1.6-2.3); Phosphorus 4.7 mg/dL (2.5-4.5); Potassium 4.2 mmol/L (3.4-5.0); Sodium 137 mmol/L (137-145); Triglycerides 196 mg/dL (<150)
[2020-04-12] MEDS: DEXAMETHASONE SOD PHOS INJ 4 MG/ML VIAL 6 MG IV PUSH (07:57)
[2020-04-12] MEDS: BENZONATATE 100 MG CAPSULE 200 MG PO ×3 (07:58→19:16)
[2020-04-12] MEDS: ENOXAPARIN 40 MG/0.4 ML SYRINGE SUB-Q ×2 (07:58→20:36)
[2020-04-12] MEDS: PANTOPRAZOLE 40 MG TABLET PO ×2 (07:58→20:37)
--- NOTE | 2020-04-12 11:45 | PCDIET ---
Nutrition Follow-Up Complete: Nutrition Diagnosis: Inadequate oral intake related to pneumonia as evidenced by NPO status, weight loss prior to admission. Nutrition Goal: Patient to meet estimated nutritional needs. Goal in progress. Patient only consuming 25-50% of most meals on full liquid, level 2 liquid diet; however, is consistently taking Ensure Enlive (350kcal, 20g protein) which is being provided with meals TID. No additional recommendations at this time. Last recorded weight is 93.4 kg which is increased from last review, despite -I/O. Will monitor. Bowel Motility: Last documented BM on 04/10/20. Labs Reviewed: Hgb (12.1), Hct (35.5), Glu (120), BUN (30), Alb (3.3), Mani Ca (8.86), TG (196), PO4 (4.7), Mg (2.5) Meds Noted: Albuterol, Decadron, Synthroid, Protonix, Pravastatin Additional Notes: No documented skin breakdown. Will continue to monitor with same goal. Nutrition Monitoring and Evaluation: Follow up in 5 days.
--- NOTE | 2020-04-12 13:14 | WPDINTPN ---
Progress Note: A&P Assessment and Plan (1) Pneumonia due to COVID-19 virus: Code(s): U07.1 - COVID-19; J12.89 - Other viral pneumonia Status: Acute Assessment and Plan: patient admitted on 04/04/2020 with increasing shortness of breath, fevers, chills and cough. SARS-CoV-2 PCR PCR was positive on 03/28/2020 - chest x-ray shows persistent Diffuse lung disease without significant change, consistent with pneumonia and/or pulmonary edema and/or acute respiratory distress syndrome (ARDS). - completed course of azithromycin and ceftriaxone which was started on 04/05/2020. - Completed course of Remdesivir ( started on 04/05/2020) - continue dexamethasone which was started on d 04/06/2020 - received a unit of convalescent COVID-19 plasma on 04/06/2020 will repeat 1 more unit 04/08 - continue airborne, droplet, contact isolation and precautions - inflammatory markers are elevated, will continue to trend - patient currently on high-flow oxygen therapy, Airvo, 60 L flow rate and 90 % FiO2. patient agreeable for intubation if worsens - continue Tessalon Perles and dextromethorphan with seems to have helped his cough to an extent - goal to keep dry as much possible. he did receive Lasix yesterday (2) Acute respiratory failure with hypoxemia: Code(s): J96.01 - Acute respiratory failure with hypoxia Status: Acute Assessment and Plan: as above (3) Acute renal failure: Qualifiers: Acute renal failure type: unspecified Qualified Code(s): N17.9 - Acute kidney failure, unspecified Code(s): N17.9 - Acute kidney failure, unspecified Status: Acute Assessment and Plan: RESOLVED acute renal failure could be related to decreased p.o. intake secondary to coughing bouts - creatinine back to baseline - off of IV fluids - monitor urine output, ill function electrolytes - Lasix IV yesterday (4) Chronic GERD: Code(s): K21.9 - Gastro-esophageal reflux disease without esophagitis Status: Chronic Assessment and Plan: continue IV PPI (5) Adult hypothyroidism: Code(s): E03.9 - Hypothyroidism, unspecified Status: Chronic Assessment and Plan: continue levothyroxine (6) Benign essential hypertension: Code(s): I10 - Essential (primary) hypertension Status: Chronic Assessment and Plan: blood pressure is within normal limits, will hold antihypertensives at this time (7) DVT prophylaxis: Code(s): Z29.9 - Encounter for prophylactic measures, unspecified Status: Acute Assessment and Plan: high D-dimer level. patient is on intermediate does of Lovenox at 40 mg Sub-cu Q12H (8) Dietary counseling and surveillance: Code(s): Z71.3 - Dietary counseling and surveillance Status: Acute Assessment and Plan: patient has been choking on his food question possible secondary to coughing and or some history of narrowing of the esophagus see stated he is to have vomiting in the past which improved with a pill that the physician gave him. He is unable provide any more history. Per his father, patient was at [facility] about 8-10 years ago, he use to have bouts of cough being and was unable to keep his food down and had a lot of vomiting then. He was placed on some medication which helped him with that. He was taken of that pill, does not remember when, after his symptoms improved. - was started on PPN on 04/05/2020 and staff was unable to insert NG tube for feeding due to patient's bouts of coughing - speech therapy re-evaluated patient on 04/06/2020 and cleared him for clear liquid diet, patient has been started on full liquid diet - PPN DISCONTINUED to keep fluid intake - continue Ensure - patient had another swallow eval testing and diet changed to nectar thick Additional Plan discussed with patient and with his condition and plan of care. I answered all questions. co
--- NOTE | 2020-04-12 14:21 | PCSTNOTE ---
This patient received a verbal order to begin Speech Therapy on 04/06/20 however the verbal order was not entered into the [facility] system until 04/12/20. Plan of care was devised 04/06/20 and the written order should have been placed on the chart that date.
--- NOTE | 2020-04-12 15:45 | PM.IMPN ---
Progress Note: A&P Assessment and Plan (1) Acute respiratory failure with hypoxemia: Code(s): J96.01 - Acute respiratory failure with hypoxia Status: Acute Assessment and Plan: patient is a 50-year-old male with history of hypertension patient presented emergency department with a complaint persistent cough shortness of breath and fever patient was positive for COVID-19 on 03/28 and since then his symptoms are persisting and would not improving he presented emergency department as he was hypoxic patient was placed on high-flow oxygen which did improve symptoms, emergency depart patient started on dexamethasone and Remdesivir, on 04/06 received call from nursing staff the patient was quite hypoxic and was desaturating on high-flow oxygen, discussed with linux support engineer and patient was seen by the linux support engineer and was transfused 1 unit convalescent COVID-19 plasma, patient had a bedside swallow study on 04/05 and he failed patient was NPO and started the patient Procalamine until patient had repeat swallow study, patient was also seen GI as patient has history of persistent cough and GERD, on 04/07 spoke with intensive patient had a bedside swallow study and he was able swallow clear liquids patient was started on a clear liquids by the linux support engineer and stopped Procalamine, today 04/10,patient was seen by speech therapy and had a bedside swallow study patient was not able to swallow other than liquids without having persistent cough, the speech therapist recommended nectar thick liquids 04/11, pt remains stable on high flow oxygen if worsens will need intubation. Pt had rpt swallow test today started on nectar thick 04/12 on high flow oxygen, looking better, sitting in chair. (2) Pneumonia due to COVID-19 virus: Code(s): U07.1 - COVID-19; J12.89 - Other viral pneumonia Status: Acute Assessment and Plan: Continue bronchodilators, Remdesivir earlier, Dexamethasone. oxygen supplementation. HR is high and RR is high (3) Acute renal failure: Qualifiers: Acute renal failure type: unspecified Qualified Code(s): N17.9 - Acute kidney failure, unspecified Code(s): N17.9 - Acute kidney failure, unspecified Status: Resolved Assessment and Plan: Creat is 1 (4) Hyperlipidemia: Qualifiers: Hyperlipidemia type: unspecified Qualified Code(s): E78.5 - Hyperlipidemia, unspecified Code(s): E78.5 - Hyperlipidemia, unspecified Status: Chronic Assessment and Plan: Continue pravastatin PO. (5) Chronic GERD: Code(s): K21.9 - Gastro-esophageal reflux disease without esophagitis Status: Chronic Assessment and Plan: Continue PPI therapy. (6) Adult hypothyroidism: Code(s): E03.9 - Hypothyroidism, unspecified Status: Chronic Assessment and Plan: Continue Levothyroxine PO. (7) Benign essential hypertension: Code(s): I10 - Essential (primary) hypertension Status: Chronic Assessment and Plan: Monitor blood pressure. BP med still on hold Subjective Date/time seen: 04/12/20 15:45 Interval history: Patient admitted on 04/04/2020 with increasing shortness of breath, fevers, chills and cough. COVID positive on 03/28/2020. Pt is stable on high flow oxygen in ICU. looks better sitting in chair. Review of Systems Review of Systems: All systems reviewed & are unremarkable except as noted in HPI and below Exam Narrative: Exam Narrative: Patient is comfortable, sitting on chair HEENT: neck no retraction patient is on high-flow oxygen LUNGS: normal respiratory effort ABD: not distended Lower extremities: no edema SKIN: nonjaundiced Neuro: patient has a good speech. Objective Data Vital Signs Vital Signs: Vital Signs - 24 hr 04/11/20 16:00 04/11/20 18:00 04/11/20 20:00 Temperature 36.3 C L 37.3 C Pulse Rate 94 98 96 Respiratory Rate 30 H 30 H 26 H Blood Pressure 120/89 1
[2020-04-12] MEDS: diphenhydrAMINE HCl CAP 25 MG CAPSULE PO (20:37)
[2020-04-12] MEDS: DEXTROMETHORPHAN POLISTIREX 60 MG/10 ML SYRINGE PO (20:37)
[2020-04-12] MEDS: BENZOCAINE/MENTHOL (*BKC) 18 EA LOZENGE 1 LOZENGE PO (23:36)
[2020-04-13] VITALS (23 sets, daily range): BP systolic 110–138; BP diastolic 71–98; PULSE 101–133; RESP 23–40; TEMP 36.6–37.2; O2SAT 88–99
[2020-04-13] MEDS: PROMETHAZINE/CODEINE (*CRX) 5 ML SYRUP PO ×2 (00:28→20:17)
[2020-04-13] MEDS: ALBUTEROL SULFATE NEB 2.5 MG/0.5 ML INH INHALATION ×4 (02:47→21:10)
[2020-04-13] MEDS: CENTRAL LINE FLUSH 10 ML IV PUSH ×3 (05:14→20:21)
[2020-04-13] MEDS: LEVOTHYROXINE SODIUM 100 MCG TABLET PO (05:14)
[2020-04-13 05:39] LABS: Basophils Percent Auto 0.1 % (0.2-1.2); Eosinophils Absolute Auto 0.1 K/mm3 (0-0.3); Eosinophils Percent Auto 0.9 % (0-4.4); Hemoglobin 12.3 g/dL (14.0-18.0); Immature Granulocyte Absolute 0.21 K/mm3 (0.00-0.031); Immature Granulocyte Percent A 1.5 % (0-0.5); Lymphocytes Absolute Auto 1.04 K/mm3 (0.9-3.2); Lymphocytes Percent Auto 7.5 % (18.3-44.2); Mean Corpuscular HGB Conc 33.2 g/dl (32-36); Mean Corpuscular Hemoglobin 32.3 pg (26-34); Mean Corpuscular Volume 97.1 fl (80-100); Mean Platelet Volume 10.9 fl (7.4-10.4); Monocytes Absolute Auto 0.6 K/mm3 (0.1-0.6); Monocytes Percent Auto 4.2 % (2.6-8.5); Neutrophils Absolute Auto 11.9 K/mm3 (1.3-6.7); Neutrophils Percent Auto 85.8 % (45.5-73.1); Platelet Count Result 411 k/mm3 (150-375); Red Blood Count 3.81 M/mm3 (4.6-6.20); Red Cell Distribution Width 12.3 % (11.5-14.5); White Blood Count 13.9 K/mm3 (4.5-10.0)
[2020-04-13 05:48] LABS: Alanine Aminotransferase 56 U/L (4-50); Albumin Level 3.3 g/dL (3.5-5.1); Alkaline Phosphatase 139 U/L (38-126); Anion Gap 3 mmol/L (8-16); Aspartate Amino Transferase 49 U/L (17-59); Bilirubin,Total 0.7 mg/dL (0.2-1.3); Blood Urea Nitrogen 32 mg/dL (9-20); CRP 5.4 mg/dL (<1.0); Calcium 8.5 mg/dL (8.4-10.2); Carbon Dioxide 38 mmol/L (22-30); Chloride 95 mmol/L (98-107); Estimated CRCL calculation 90 ml/min; Estimated Glomerular Filt Rate > 60; Glucose 113 mg/dL (75-110); Lactate Dehydrogenase 1634 U/L (313-618); Potassium 4.2 mmol/L (3.4-5.0); Sodium 136 mmol/L (137-145)
[2020-04-13] MEDS: PANTOPRAZOLE 40 MG TABLET PO ×2 (08:09→20:19)
[2020-04-13] MEDS: BENZONATATE 100 MG CAPSULE 200 MG PO ×3 (08:09→17:35)
[2020-04-13] MEDS: ENOXAPARIN 40 MG/0.4 ML SYRINGE SUB-Q ×2 (08:09→20:18)
[2020-04-13] MEDS: DEXAMETHASONE SOD PHOS INJ 4 MG/ML VIAL 6 MG IV PUSH (08:09)
[2020-04-13] MEDS: BENZOCAINE/MENTHOL (*BKC) 18 EA LOZENGE 1 LOZENGE PO ×2 (08:10→20:19)
--- NOTE | 2020-04-13 10:41 | WPDINTPN ---
Progress Note: A&P Assessment and Plan (1) Pneumonia due to COVID-19 virus: Code(s): U07.1 - COVID-19; J12.89 - Other viral pneumonia Status: Acute Assessment and Plan: patient admitted on 04/04/2020 with increasing shortness of breath, fevers, chills and cough. SARS-CoV-2 PCR PCR was positive on 03/28/2020 - chest x-ray shows persistent Diffuse lung disease without significant change, consistent with pneumonia and/or pulmonary edema and/or acute respiratory distress syndrome (ARDS). - completed course of azithromycin and ceftriaxone which was started on 04/05/2020. - Completed course of Remdesivir ( started on 04/05/2020) - continue dexamethasone which was started on d 04/06/2020 - received a unit of convalescent COVID-19 plasma on 04/06/2020 will repeat 1 more unit 04/08 - continue airborne, droplet, contact isolation and precautions - inflammatory markers are elevated, will continue to trend - patient currently on high-flow oxygen therapy, Airvo, 60 L flow rate and 90 % FiO2. patient agreeable for intubation if worsens - continue Tessalon Perles and dextromethorphan with seems to have helped his cough to an extent - goal to keep dry as much possible. he did receive Lasix few days ago but does not appear hypervolemic at this time (2) Acute respiratory failure with hypoxemia: Code(s): J96.01 - Acute respiratory failure with hypoxia Status: Acute Assessment and Plan: as above (3) Acute renal failure: Qualifiers: Acute renal failure type: unspecified Qualified Code(s): N17.9 - Acute kidney failure, unspecified Code(s): N17.9 - Acute kidney failure, unspecified Status: Acute Assessment and Plan: RESOLVED acute renal failure could be related to decreased p.o. intake secondary to coughing bouts - creatinine back to baseline - off of IV fluids now - monitor urine output, ill function electrolytes (4) Chronic GERD: Code(s): K21.9 - Gastro-esophageal reflux disease without esophagitis Status: Chronic Assessment and Plan: continue IV PPI (5) Adult hypothyroidism: Code(s): E03.9 - Hypothyroidism, unspecified Status: Chronic Assessment and Plan: continue levothyroxine (6) Benign essential hypertension: Code(s): I10 - Essential (primary) hypertension Status: Chronic Assessment and Plan: blood pressure is within normal limits, will hold antihypertensives at this time (7) DVT prophylaxis: Code(s): Z29.9 - Encounter for prophylactic measures, unspecified Status: Acute Assessment and Plan: high D-dimer level. patient is on intermediate does of Lovenox at 40 mg Sub-cu Q12H (8) Dietary counseling and surveillance: Code(s): Z71.3 - Dietary counseling and surveillance Status: Acute Assessment and Plan: patient has been choking on his food question possible secondary to coughing and or some history of narrowing of the esophagus see stated he is to have vomiting in the past which improved with a pill that the physician gave him. He is unable provide any more history. Per his father, patient was at [facility] about 8-10 years ago, he use to have bouts of cough being and was unable to keep his food down and had a lot of vomiting then. He was placed on some medication which helped him with that. He was taken of that pill, does not remember when, after his symptoms improved. - was started on PPN on 04/05/2020 and staff was unable to insert NG tube for feeding due to patient's bouts of coughing - speech therapy re-evaluated patient on 04/06/2020 and cleared him for clear liquid diet, patient has been started on full liquid diet - PPN DISCONTINUED to keep fluid intake - continue Ensure - patient had another swallow eval testing and diet changed to nectar thick Additional Plan discussed with patient and with his condition and plan of care. I
--- NOTE | 2020-04-13 11:11 | PCDIET ---
Nutrition Follow-Up Complete: Nutrition Diagnosis: Inadequate oral intake related to pneumonia as evidenced by NPO status, weight loss prior to admission. Nutrition Goal: Patient to meet estimated nutritional needs. Goal in progress. Patient continues to consume between 25-50% of recorded meals with Ensure Enlive (350kcal, 20g protein) TID. Continues to have a lot of coughing which is reportedly inhibiting intake. Recommend continuing level 2 thickened full liquid diet, as tolerated, with Ensure Enlive TID. Last recorded weight is 89.7 kg which is down from last review. -I/O. Bowel Motility: Last documented BM on 04/10/20 - would consider addition of medication for BM if medically appropriate. Labs Reviewed: Hgb (12.3), Hct (37.0), Glu (113), BUN (32), Na (136), Alb (3.3) Meds Noted: Albuterol, Decadron, Synthroid, Protonix, Pravastatin Additional Notes: No documented skin breakdown. Will continue to monitor with same goal. Nutrition Monitoring and Evaluation: Follow up in 3 days.
--- NOTE | 2020-04-13 12:19 | WPDGIPROGNO ---
Progress Note: A&P Assessment and Plan (1) Dysphagia: Code(s): R13.10 - Dysphagia, unspecified Status: Acute Assessment and Plan: Continue liquid diet with liquid dietary supplements as needed. Ensure except trip. Speech therapy will continue to work with patient. Repeat modified barium swallow at some point. Advance diet if respiratory status allows. Currently seems to get short of breath on more solid foods. (2) Acute respiratory failure with hypoxemia: Code(s): J96.01 - Acute respiratory failure with hypoxia Status: Acute (3) Cognitive impairment: Code(s): R41.89 - Other symptoms and signs involving cognitive functions and awareness Status: Acute Subjective Date/time seen: 04/13/20 12:19 Patient remains short of breath on high-flow oxygen therapy. Appears to be tolerating liquid diet Exam Narrative: Exam Narrative: exam deferred today because of COVID positive status. Objective Data Vital Signs Vital Signs: Vital Signs - 24 hr 04/12/20 14:00 04/12/20 14:20 04/12/20 14:25 Temperature Pulse Rate 100 112 H 112 H Respiratory Rate 29 H 28 H 28 H Blood Pressure 135/87 Pulse Oximetry 96 96 04/12/20 14:35 04/12/20 16:00 04/12/20 18:00 Temperature 98.1 F Pulse Rate 115 H 98 97 Respiratory Rate 28 H 36 H 25 H Blood Pressure 113/80 Pulse Oximetry 94 98 04/12/20 20:00 04/12/20 20:43 04/12/20 20:45 Temperature 97.9 F Pulse Rate 87 93 91 Respiratory Rate 28 H 24 H 20 Blood Pressure 105/77 Pulse Oximetry 96 97 04/12/20 20:51 04/12/20 22:00 04/13/20 00:00 Temperature 98.9 F Pulse Rate 94 99 124 H Respiratory Rate 22 H 25 H 32 H Blood Pressure 110/78 110/84 Pulse Oximetry 84 L 89 L 04/13/20 02:00 04/13/20 02:47 04/13/20 02:53 Temperature Pulse Rate 101 H 108 H 110 H Respiratory Rate 24 H 34 H 28 H Blood Pressure 112/86 Pulse Oximetry 96 04/13/20 04:00 04/13/20 06:00 04/13/20 08:00 Temperature 99.0 F 98.9 F 98.8 F Pulse Rate 102 H 105 H 114 H Respiratory Rate 26 H 23 H 30 H Blood Pressure 115/86 122/98 H 126/81 Pulse Oximetry 89 L 94 94 04/13/20 08:01 04/13/20 08:02 04/13/20 10:00 Temperature Pulse Rate 120 H 117 H 122 H Respiratory Rate 26 H 35 H 30 H Blood Pressure 133/96 H Pulse Oximetry 95 89 L Intake/Output Intake/Output: Intake & Output 04/10/20 04/11/20 04/12/20 04/13/20 23:59 23:59 23:59 23:59 Intake Total 2019 960 810 100 Output Total 2475 2630 1100 700 Trmigxr -455 -1670 -290 -600 Meds/Results Medications: Active Medications Generic Name Dose Route Start Last Admin Trade Name Freq PRN Reason Stop Dose Admin Acetaminophen 650 mg 04/04/20 21:45 04/11/20 06:02 Acetaminophen 325 Mg Tablet PO 650 mg Q4H PRN Administration Mild Pain (1-3) or Fever Albuterol 2.5 mg 04/06/20 14:00 04/13/20 08:00 Albuterol Sulfate Neb 2.5 Mg/0.5 Ml Inh INHALATION 2.5 mg Q6HRT KARLEE Administration Benzocaine 1 lozenge 04/06/20 08:21 04/13/20 08:10 Benzocaine/Menthol (*Bkc) 18 Ea Lozenge PO 1 lozenge PRN PRN Administration Sore Throat Benzonatate 200 mg 04/07/20 09:00 04/13/20 08:09 Benzonatate 100 Mg Capsule PO 200 mg TID KARLEE Administration Dexamethasone Sodium Phosphate 6 mg 04/06/20 09:00 04/13/20 08:09 Dexamethasone Sod Phos Inj 4 Mg/Ml Vial IV PUSH 04/15/20 09:01 6 mg DAILY KARLEE Administration Dextromethorphan Polistirix 60 mg 04/11/20 13:11 04/12/20 20:37 Dextromethorphan Polistirex 60 Mg/10 Ml Syringe PO 60 mg Q12H PRN Administration Cough Diphenhydramine HCl 25 mg 04/09/20 17:20 04/12/20 20:37 Diphenhydramine Hcl Cap 25 Mg Capsule PO 25 mg HS PRN Administration Insomnia Enoxaparin Sodium 40 mg 04/05/20 21:00 04/13/20 08:09 Enoxaparin 40 Mg/0.4 Ml Syringe SUB-Q 40 mg Q12HR KARLEE Administration Levothyroxine Sodium 100 mcg 04/05/20 06:30 04/13/20 05:14 Levothyroxine Sodium 100 M
--- NOTE | 2020-04-13 16:29 | PM.IMPN ---
Progress Note: A&P Assessment and Plan (1) Acute respiratory failure with hypoxemia: Code(s): J96.01 - Acute respiratory failure with hypoxia Status: Acute Assessment and Plan: patient is a 50-year-old male with history of hypertension patient presented emergency department with a complaint persistent cough shortness of breath and fever patient was positive for COVID-19 on 03/28 and since then his symptoms are persisting and would not improving he presented emergency department as he was hypoxic patient was placed on high-flow oxygen which did improve symptoms, emergency depart patient started on dexamethasone and Remdesivir, on 04/06 received call from nursing staff the patient was quite hypoxic and was desaturating on high-flow oxygen, discussed with pharmacy technician program director and patient was seen by the pharmacy technician program director and was transfused 1 unit convalescent COVID-19 plasma, patient had a bedside swallow study on 04/05 and he failed patient was NPO and started the patient Procalamine until patient had repeat swallow study, patient was also seen GI as patient has history of persistent cough and GERD, on 04/07 spoke with intensive patient had a bedside swallow study and he was able swallow clear liquids patient was started on a clear liquids by the pharmacy technician program director and stopped Procalamine today 04/10,patient was seen by speech therapy and had a bedside swallow study patient was not able to swallow other than liquids without having persistent cough, the speech therapist recommended nectar thick liquids 04/11, pt remains stable on high flow oxygen if worsens will need intubation. Pt had rpt swallow test today started on nectar thick 04/12 on high flow oxygen, looking better, sitting in chair. 04/13 on non rebreather mask, sitting in chair (2) Pneumonia due to COVID-19 virus: Code(s): U07.1 - COVID-19; J12.89 - Other viral pneumonia Status: Acute Assessment and Plan: Continue bronchodilators, Remdesivir earlier, Dexamethasone. oxygen supplementation. HR is high and RR is high (3) Acute renal failure: Qualifiers: Acute renal failure type: unspecified Qualified Code(s): N17.9 - Acute kidney failure, unspecified Code(s): N17.9 - Acute kidney failure, unspecified Status: Resolved Assessment and Plan: Creat is 1 (4) Hyperlipidemia: Qualifiers: Hyperlipidemia type: unspecified Qualified Code(s): E78.5 - Hyperlipidemia, unspecified Code(s): E78.5 - Hyperlipidemia, unspecified Status: Chronic Assessment and Plan: Continue pravastatin PO. (5) Chronic GERD: Code(s): K21.9 - Gastro-esophageal reflux disease without esophagitis Status: Chronic Assessment and Plan: Continue PPI therapy. (6) Adult hypothyroidism: Code(s): E03.9 - Hypothyroidism, unspecified Status: Chronic Assessment and Plan: Continue Levothyroxine PO. (7) Benign essential hypertension: Code(s): I10 - Essential (primary) hypertension Status: Chronic Assessment and Plan: Monitor blood pressure. BP med still on hold Subjective Date/time seen: 04/13/20 16:29 Interval history: Patient admitted on 04/04/2020 with increasing shortness of breath, fevers, chills and cough. COVID positive on 03/28/2020. Pt on non rebreather mask, HR high and RR high. pt is in respiratory distress continue to watch carefully in ICU. Review of Systems Review of Systems: All systems reviewed & are unremarkable except as noted in HPI and below Exam Narrative: Exam Narrative: Patient sitting on chair HEENT: neck no retraction patient is on non rebreather mask LUNGS: normal respiratory effort ABD: not distended Lower extremities: no edema SKIN: nonjaundiced Neuro: patient has a good speech. Objective Data Vital Signs Vital Signs: Vital Signs - 24 hr 04/12/20 18:00 04/12/20 20:00 04/12/20 20:43 Temperature 36.6 C Pulse R
[2020-04-13] MEDS: ACETAMINOPHEN 325 MG TABLET 650 MG PO (23:36)
[2020-04-13] MEDS: diphenhydrAMINE HCl CAP 25 MG CAPSULE PO (23:36)
[2020-04-14] VITALS (22 sets, daily range): BP systolic 123–146; BP diastolic 80–97; PULSE 91–129; RESP 25–42; TEMP 36.4–37.3; O2SAT 88–97
[2020-04-14] MEDS: NEOMYCIN/POLYMYXIN/BACITRACIN OINTMENT PACKET 1 PACKET (01:16)
[2020-04-14] MEDS: ALBUTEROL SULFATE NEB 2.5 MG/0.5 ML INH INHALATION ×4 (02:45→21:04)
[2020-04-14] MEDS: CENTRAL LINE FLUSH 10 ML IV PUSH ×3 (06:32→19:57)
[2020-04-14] MEDS: LEVOTHYROXINE SODIUM 100 MCG TABLET PO (06:32)
[2020-04-14 06:53] LABS: Basophils Percent Auto 0.1 % (0.2-1.2); Eosinophils Absolute Auto 0.1 K/mm3 (0-0.3); Eosinophils Percent Auto 0.4 % (0-4.4); Hematocrit 36.8 % (42.0-52.0); Hemoglobin 12.1 g/dL (14.0-18.0); Immature Granulocyte Absolute 0.19 K/mm3 (0.00-0.031); Immature Granulocyte Percent A 1.1 % (0-0.5); Lymphocytes Absolute Auto 1.28 K/mm3 (0.9-3.2); Lymphocytes Percent Auto 7.7 % (18.3-44.2); Mean Corpuscular HGB Conc 32.9 g/dl (32-36); Mean Corpuscular Hemoglobin 31.8 pg (26-34); Mean Corpuscular Volume 96.8 fl (80-100); Mean Platelet Volume 10.8 fl (7.4-10.4); Monocytes Absolute Auto 0.6 K/mm3 (0.1-0.6); Monocytes Percent Auto 3.7 % (2.6-8.5); Neutrophils Absolute Auto 14.5 K/mm3 (1.3-6.7); Platelet Count Result 416 k/mm3 (150-375); Red Cell Distribution Width 12.3 % (11.5-14.5); White Blood Count 16.7 K/mm3 (4.5-10.0)
[2020-04-14 07:31] LABS: Alanine Aminotransferase 54 U/L (4-50); Albumin Level 3.2 g/dL (3.5-5.1); Alkaline Phosphatase 167 U/L (38-126); Anion Gap 5 mmol/L (8-16); Aspartate Amino Transferase 59 U/L (17-59); Blood Urea Nitrogen 30 mg/dL (9-20); Carbon Dioxide 36 mmol/L (22-30); Chloride 92 mmol/L (98-107); Estimated CRCL calculation 80 ml/min; Estimated Glomerular Filt Rate > 60; Glucose 111 mg/dL (75-110); Sodium 133 mmol/L (137-145); Triglycerides 175 mg/dL (<150)
--- NOTE | 2020-04-14 08:00 | WPDINTPN ---
Progress Note: A&P Assessment and Plan (1) Pneumonia due to COVID-19 virus: Code(s): U07.1 - COVID-19; J12.89 - Other viral pneumonia Status: Acute Assessment and Plan: patient admitted on 04/04/2020 with increasing shortness of breath, fevers, chills and cough. SARS-CoV-2 PCR PCR was positive on 03/28/2020 - chest x-ray shows persistent Diffuse lung disease without significant change, consistent with pneumonia and/or pulmonary edema and/or acute respiratory distress syndrome (ARDS). - completed course of azithromycin and ceftriaxone which was started on 04/05/2020. - Completed course of Remdesivir ( started on 04/05/2020) - continue dexamethasone which was started on d 04/06/2020 - received a unit of convalescent COVID-19 plasma on 04/06/2020 will repeat 1 more unit 04/08 - continue airborne, droplet, contact isolation and precautions - inflammatory markers are elevated, will continue to trend - patient currently on 15 L non-rebreather mask. I removed his nasal cannula as he was complaining of nasal congestion. So far he is maintaining his saturation. - May need to add back nasal cannula if needed - add p.r.n. nasal saline and Afrin spray for nasal congestion - continue Tessalon Perles and dextromethorphan with seems to have helped his cough to an extent - goal to keep dry as much possible. he did receive Lasix few days ago but does not appear hypervolemic at this time (2) Acute respiratory failure with hypoxemia: Code(s): J96.01 - Acute respiratory failure with hypoxia Status: Acute Assessment and Plan: as above (3) Acute renal failure: Qualifiers: Acute renal failure type: unspecified Qualified Code(s): N17.9 - Acute kidney failure, unspecified Code(s): N17.9 - Acute kidney failure, unspecified Status: Resolved Assessment and Plan: RESOLVED acute renal failure could be related to decreased p.o. intake secondary to coughing bouts - creatinine back to baseline - off of IV fluids now - monitor urine output, ill function electrolytes (4) Chronic GERD: Code(s): K21.9 - Gastro-esophageal reflux disease without esophagitis Status: Chronic Assessment and Plan: continue IV PPI (5) Adult hypothyroidism: Code(s): E03.9 - Hypothyroidism, unspecified Status: Chronic Assessment and Plan: continue levothyroxine (6) Benign essential hypertension: Code(s): I10 - Essential (primary) hypertension Status: Chronic Assessment and Plan: blood pressure is within normal limits, will hold antihypertensives at this time (7) DVT prophylaxis: Code(s): Z29.9 - Encounter for prophylactic measures, unspecified Status: Acute Assessment and Plan: high D-dimer level. patient is on intermediate does of Lovenox at 40 mg Sub-cu Q12H (8) Dietary counseling and surveillance: Code(s): Z71.3 - Dietary counseling and surveillance Status: Acute Assessment and Plan: patient has been choking on his food question possible secondary to coughing and or some history of narrowing of the esophagus see stated he is to have vomiting in the past which improved with a pill that the physician gave him. He is unable provide any more history. Per his father, patient was at [facility] about 8-10 years ago, he use to have bouts of cough being and was unable to keep his food down and had a lot of vomiting then. He was placed on some medication which helped him with that. He was taken of that pill, does not remember when, after his symptoms improved. - was started on PPN on 04/05/2020 and staff was unable to insert NG tube for feeding due to patient's bouts of coughing - speech therapy re-evaluated patient on 04/06/2020 and cleared him for clear liquid diet, patient has been started on full liquid diet - PPN DISCONTINUED to keep fluid intake - continue Ensure - patient had an
[2020-04-14] MEDS: ENOXAPARIN 40 MG/0.4 ML SYRINGE SUB-Q ×2 (08:11→19:56)
[2020-04-14] MEDS: DEXTROMETHORPHAN POLISTIREX 60 MG/10 ML SYRINGE PO ×2 (08:11→19:56)
[2020-04-14] MEDS: DEXAMETHASONE SOD PHOS INJ 4 MG/ML VIAL 6 MG IV PUSH (08:12)
[2020-04-14] MEDS: BENZONATATE 100 MG CAPSULE 200 MG PO ×3 (08:12→16:10)
[2020-04-14] MEDS: PANTOPRAZOLE 40 MG TABLET PO ×2 (08:12→19:56)
[2020-04-14 09:09] LABS: CRP 14.5 mg/dL (<1.0)
[2020-04-14] MEDS: LORazepam INJ (*CRX) 2 MG/ML VIAL 0.5 MG IV PUSH (09:20)
--- NOTE | 2020-04-14 15:14 | PM.IMPN ---
Progress Note: A&P Assessment and Plan (1) Acute respiratory failure with hypoxemia: Code(s): J96.01 - Acute respiratory failure with hypoxia Status: Acute Assessment and Plan: patient is a 50-year-old male with history of hypertension patient presented emergency department with a complaint persistent cough shortness of breath and fever patient was positive for COVID-19 on 03/28 and since then his symptoms are persisting and would not improving he presented emergency department as he was hypoxic patient was placed on high-flow oxygen which did improve symptoms, emergency depart patient started on dexamethasone and Remdesivir, on 04/06 received call from nursing staff the patient was quite hypoxic and was desaturating on high-flow oxygen, discussed with user experience developer and patient was seen by the user experience developer and was transfused 1 unit convalescent COVID-19 plasma, patient had a bedside swallow study on 04/05 and he failed patient was NPO and started the patient Procalamine until patient had repeat swallow study, patient was also seen GI as patient has history of persistent cough and GERD, on 04/07 spoke with intensive patient had a bedside swallow study and he was able swallow clear liquids patient was started on a clear liquids by the user experience developer and stopped Procalamine today 04/10,patient was seen by speech therapy and had a bedside swallow study patient was not able to swallow other than liquids without having persistent cough, the speech therapist recommended nectar thick liquids 04/11, pt remains stable on high flow oxygen if worsens will need intubation. Pt had rpt swallow test today started on nectar thick 04/12 on high flow oxygen, looking better, sitting in chair. 04/13 on non rebreather mask, sitting in chair 04/14 on non rebreather mask cxr possible ARDS (2) Pneumonia due to COVID-19 virus: Code(s): U07.1 - COVID-19; J12.89 - Other viral pneumonia Status: Acute Assessment and Plan: Continue bronchodilators, Remdesivir earlier, Dexamethasone. oxygen supplementation. HR is high and RR is high (3) Acute renal failure: Qualifiers: Acute renal failure type: unspecified Qualified Code(s): N17.9 - Acute kidney failure, unspecified Code(s): N17.9 - Acute kidney failure, unspecified Status: Resolved Assessment and Plan: Creat is 1 (4) Hyperlipidemia: Qualifiers: Hyperlipidemia type: unspecified Qualified Code(s): E78.5 - Hyperlipidemia, unspecified Code(s): E78.5 - Hyperlipidemia, unspecified Status: Chronic Assessment and Plan: Continue pravastatin PO. (5) Chronic GERD: Code(s): K21.9 - Gastro-esophageal reflux disease without esophagitis Status: Chronic Assessment and Plan: Continue PPI therapy. (6) Adult hypothyroidism: Code(s): E03.9 - Hypothyroidism, unspecified Status: Chronic Assessment and Plan: Continue Levothyroxine PO. (7) Benign essential hypertension: Code(s): I10 - Essential (primary) hypertension Status: Chronic Assessment and Plan: Monitor blood pressure. BP med still on hold Subjective Date/time seen: 04/14/20 15:14 Interval history: Patient admitted on 04/04/2020 with increasing shortness of breath, fevers, chills and cough. COVID positive on 03/28/2020. Pt on non rebreather mask, HR high and RR high. pt is in respiratory distress continue to watch carefully in ICU. Pt is stable on non rebreather mask. Review of Systems Review of Systems: All systems reviewed & are unremarkable except as noted in HPI and below Exam Narrative: Exam Narrative: Patient sitting on chair HEENT: neck no retraction patient is on non rebreather mask LUNGS: normal respiratory effort ABD: not distended Lower extremities: no edema SKIN: nonjaundiced Neuro: patient has a good speech. Objective Data Vital Signs Vital Signs: Vital Signs - 2
[2020-04-14] MEDS: MELATONIN 3 MG TABLET PO (19:56)
[2020-04-14] MEDS: diphenhydrAMINE HCl CAP 25 MG CAPSULE PO (19:56)
[2020-04-15] VITALS (26 sets, daily range): BP systolic 120–150; BP diastolic 69–100; PULSE 67–115; RESP 28–43; TEMP 36.6–37.1; O2SAT 87–97
[2020-04-15] MEDS: ALBUTEROL SULFATE NEB 2.5 MG/0.5 ML INH INHALATION ×4 (02:45→20:48)
[2020-04-15] MEDS: CENTRAL LINE FLUSH 10 ML IV PUSH ×3 (04:52→20:26)
[2020-04-15] MEDS: LEVOTHYROXINE SODIUM 100 MCG TABLET PO (06:11)
[2020-04-15] MEDS: SALINE 0.65% NAS SOLN 44 ML BTL 1 SPRAY NASAL ×2 (06:12→12:51)
[2020-04-15 06:57] LABS: D Dimer 4.32 ug/mL (<0.48)
[2020-04-15 07:04] LABS: CRP 24.5 mg/dL (<1.0)
[2020-04-15 07:46] LABS: Lactate Dehydrogenase 2007 U/L (313-618)
[2020-04-15] MEDS: BENZONATATE 100 MG CAPSULE 200 MG PO ×3 (09:22→17:40)
[2020-04-15] MEDS: DEXTROMETHORPHAN POLISTIREX 60 MG/10 ML SYRINGE PO ×2 (09:22→23:41)
[2020-04-15] MEDS: DEXAMETHASONE SOD PHOS INJ 4 MG/ML VIAL 6 MG IV PUSH (09:22)
[2020-04-15] MEDS: PANTOPRAZOLE 40 MG TABLET PO ×2 (09:22→20:26)
[2020-04-15] MEDS: ENOXAPARIN 40 MG/0.4 ML SYRINGE SUB-Q ×2 (09:23→20:25)
--- NOTE | 2020-04-15 12:41 | WPDINTPN ---
Progress Note: A&P Assessment and Plan (1) Pneumonia due to COVID-19 virus: Code(s): U07.1 - COVID-19; J12.89 - Other viral pneumonia Status: Acute Assessment and Plan: patient admitted on 04/04/2020 with increasing shortness of breath, fevers, chills and cough. SARS-CoV-2 PCR PCR was positive on 03/28/2020 - chest x-ray shows - Diffuse lung disease with slight improvement, consistent with pneumonia and/or pulmonary edema and/or acute respiratory distress syndrome (ARDS). - completed course of azithromycin and ceftriaxone which was started on 04/05/2020. - Completed course of Remdesivir ( started on 04/05/2020) - continue dexamethasone which was started on d 04/06/2020 - received a unit of convalescent COVID-19 plasma on 04/06/2020 will repeat 1 more unit 04/08 - continue airborne, droplet, contact isolation and precautions - inflammatory markers are elevated, will continue to trend - patient currently high-flow nasal cannula and non-rebreather mask. - continue p.r.n. nasal saline and Afrin spray for nasal congestion - continue Tessalon Perles and dextromethorphan with seems to have helped his cough to an extent - goal to keep dry as much possible. he did receive Lasix few days ago but does not appear hypervolemic at this time - continue IS and up in chair to minimize atelectasis (2) Acute respiratory failure with hypoxemia: Code(s): J96.01 - Acute respiratory failure with hypoxia Status: Acute Assessment and Plan: as above (3) Acute renal failure: Qualifiers: Acute renal failure type: unspecified Qualified Code(s): N17.9 - Acute kidney failure, unspecified Code(s): N17.9 - Acute kidney failure, unspecified Status: Resolved Assessment and Plan: RESOLVED acute renal failure could be related to decreased p.o. intake secondary to coughing bouts - creatinine back to baseline - off of IV fluids now - monitor urine output, ill function electrolytes (4) Chronic GERD: Code(s): K21.9 - Gastro-esophageal reflux disease without esophagitis Status: Chronic Assessment and Plan: continue IV PPI (5) Adult hypothyroidism: Code(s): E03.9 - Hypothyroidism, unspecified Status: Chronic Assessment and Plan: continue levothyroxine (6) Benign essential hypertension: Code(s): I10 - Essential (primary) hypertension Status: Chronic Assessment and Plan: blood pressure is within normal limits, will hold antihypertensives at this time (7) DVT prophylaxis: Code(s): Z29.9 - Encounter for prophylactic measures, unspecified Status: Acute Assessment and Plan: high D-dimer level. patient is on intermediate does of Lovenox at 40 mg Sub-cu Q12H (8) Dietary counseling and surveillance: Code(s): Z71.3 - Dietary counseling and surveillance Status: Acute Assessment and Plan: patient has been choking on his food question possible secondary to coughing and or some history of narrowing of the esophagus see stated he is to have vomiting in the past which improved with a pill that the physician gave him. He is unable provide any more history. Per his father, patient was at [facility] about 8-10 years ago, he use to have bouts of cough being and was unable to keep his food down and had a lot of vomiting then. He was placed on some medication which helped him with that. He was taken of that pill, does not remember when, after his symptoms improved. - was started on PPN on 04/05/2020 and staff was unable to insert NG tube for feeding due to patient's bouts of coughing - speech therapy re-evaluated patient on 04/06/2020 and cleared him for clear liquid diet, patient has been started on full liquid diet - PPN DISCONTINUED to keep fluid intake - continue Ensure - patient had another swallow eval testing and diet changed to nectar thick (9) Insomnia: Code(s):
--- NOTE | 2020-04-15 13:27 | PM.IMPN ---
Progress Note: A&P Assessment and Plan (1) Pneumonia due to COVID-19 virus: Code(s): U07.1 - COVID-19; J12.89 - Other viral pneumonia Status: Acute Assessment and Plan: Still on high flow oxygen but apparently doing better. Completed remdesivir, on Dexamethasone, also receiving convalescent plasma. (2) Acute respiratory failure with hypoxemia: Code(s): J96.01 - Acute respiratory failure with hypoxia Status: Acute Assessment and Plan: As above due to SARS COV -2. (3) Acute renal failure: Qualifiers: Acute renal failure type: unspecified Qualified Code(s): N17.9 - Acute kidney failure, unspecified Code(s): N17.9 - Acute kidney failure, unspecified Status: Resolved Assessment and Plan: Resolved (4) Benign essential hypertension: Code(s): I10 - Essential (primary) hypertension Status: Chronic Assessment and Plan: Stable (5) Adult hypothyroidism: Code(s): E03.9 - Hypothyroidism, unspecified Status: Chronic Assessment and Plan: Cont home medicine. (6) Hyperlipidemia: Qualifiers: Hyperlipidemia type: unspecified Qualified Code(s): E78.5 - Hyperlipidemia, unspecified Code(s): E78.5 - Hyperlipidemia, unspecified Status: Chronic Subjective Date/time seen: Pt states he feels better, still on high flow O2. 04/15/20 13:27 Exam Const: General: cooperative, alert and awake HENMT: Head: normal to inspection Neck: Neck: supple Resp: Effort & Inspection: able to speak in complete sentences Auscultation: clear to auscultation bilaterally and diminished lung sounds Cardio: Jugular venous distension: no JVD Rate: regular rate Rhythm: regular rhythm Heart sounds: S1 normal heart sound present and S2 normal heart sound present GI: GI Palp: Yes Soft to palpation Auscultation: normal bowel sounds Other: Non tender, non distended. Skin: General skin exam: no rashes or lesions noted Neuro: General: patient oriented x3, moves all extremities and no focal motor deficits Objective Data Vital Signs Vital Signs: Vital Signs - 24 hr 04/14/20 14:00 04/14/20 14:10 04/14/20 15:26 Temperature Pulse Rate 98 95 119 H Respiratory Rate 34 H 34 H Blood Pressure 146/93 H Pulse Oximetry 88 L 97 04/14/20 16:00 04/14/20 18:00 04/14/20 20:00 Temperature 97.7 F 98.7 F Pulse Rate 115 H 114 H 111 H Respiratory Rate 32 H 32 H 29 H Blood Pressure 129/81 138/96 H 128/80 Pulse Oximetry 95 93 91 04/14/20 21:05 04/14/20 21:17 04/14/20 21:28 Temperature Pulse Rate 107 H 107 H 111 H Respiratory Rate 36 H 38 H 32 H Blood Pressure 128/80 Pulse Oximetry 92 90 04/15/20 00:00 04/15/20 01:14 04/15/20 01:28 Temperature 98.7 F Pulse Rate 111 H 107 H 103 H Respiratory Rate 39 H 40 H 35 H Blood Pressure 133/90 Pulse Oximetry 94 87 L 96 04/15/20 02:46 04/15/20 03:00 04/15/20 03:11 Temperature Pulse Rate 102 H 99 Respiratory Rate 32 H 35 H Blood Pressure Pulse Oximetry 96 04/15/20 03:19 04/15/20 03:31 04/15/20 04:00 Temperature 98.6 F Pulse Rate 106 H 101 H 101 H Respiratory Rate 30 H 34 H Blood Pressure 130/97 H Pulse Oximetry 97 96 04/15/20 05:41 04/15/20 08:00 04/15/20 09:03 Temperature 98.8 F Pulse Rate 99 99 Respiratory Rate 32 H 32 H Blood Pressure 138/91 H 131/90 Pulse Oximetry 89 L 96 96 04/15/20 10:00 04/15/20 11:14 04/15/20 12:00 Temperature Pulse Rate 114 H 103 H Respiratory Rate 28 H 38 H Blood Pressure 144/93 H 150/89 H Pulse Oximetry 95 95 91 Intake/Output Intake/Output: Intake & Output 04/12/20 04/13/20 04/14/20 04/15/20 23:59 23:59 23:59 23:59 Intake Total 126 194 6088 600 Output Total 1100 1415 1850 900 Balance -290 -1265 120 -300 Meds/Results Medications: Active Medications Generic Name Dose Route Start Last Admin Trade Name Freq PRN Reason Stop
[2020-04-15] MEDS: diphenhydrAMINE HCl CAP 25 MG CAPSULE PO (23:22)
[2020-04-15] MEDS: ACETAMINOPHEN 325 MG TABLET 650 MG PO (23:22)
[2020-04-15] MEDS: MELATONIN 3 MG TABLET PO (23:22)
[2020-04-16] VITALS (24 sets, daily range): BP systolic 117–148; BP diastolic 78–105; PULSE 82–128; RESP 20–46; TEMP 36.1–38.4; O2SAT 88–98
[2020-04-16] MEDS: ALBUTEROL SULFATE NEB 2.5 MG/0.5 ML INH INHALATION ×4 (02:27→20:57)
[2020-04-16] MEDS: CENTRAL LINE FLUSH 10 ML IV PUSH ×3 (06:24→20:09)
[2020-04-16] MEDS: LEVOTHYROXINE SODIUM 100 MCG TABLET PO (06:25)
[2020-04-16] MEDS: BENZONATATE 100 MG CAPSULE 200 MG PO ×3 (06:25→17:49)
[2020-04-16 06:56] LABS: Basophils Percent Auto 0.1 % (0.2-1.2); Eosinophils Percent Auto 0.1 % (0-4.4); Hematocrit 34.9 % (42.0-52.0); Hemoglobin 11.6 g/dL (14.0-18.0); Immature Granulocyte Absolute 0.22 K/mm3 (0.00-0.031); Immature Granulocyte Percent A 1.3 % (0-0.5); Lymphocytes Percent Auto 8.4 % (18.3-44.2); Mean Corpuscular HGB Conc 33.2 g/dl (32-36); Mean Corpuscular Hemoglobin 31.4 pg (26-34); Mean Corpuscular Volume 94.6 fl (80-100); Mean Platelet Volume 11.2 fl (7.4-10.4); Monocytes Absolute Auto 0.7 K/mm3 (0.1-0.6); Monocytes Percent Auto 4.4 % (2.6-8.5); Neutrophils Absolute Auto 14.2 K/mm3 (1.3-6.7); Neutrophils Percent Auto 85.7 % (45.5-73.1); Platelet Count Result 412 k/mm3 (150-375); Red Blood Count 3.69 M/mm3 (4.6-6.20); Red Cell Distribution Width 12.2 % (11.5-14.5); White Blood Count 16.6 K/mm3 (4.5-10.0)
[2020-04-16 07:09] LABS: Alanine Aminotransferase 94 U/L (4-50); Albumin Level 3.4 g/dL (3.5-5.1); Alkaline Phosphatase 228 U/L (38-126); Anion Gap 8 mmol/L (8-16); Aspartate Amino Transferase 74 U/L (17-59); Bilirubin,Total 0.7 mg/dL (0.2-1.3); Blood Urea Nitrogen 29 mg/dL (9-20); Calcium 8.3 mg/dL (8.4-10.2); Carbon Dioxide 37 mmol/L (22-30); Chloride 95 mmol/L (98-107); Estimated CRCL calculation 80 ml/min; Estimated Glomerular Filt Rate > 60; Glucose 132 mg/dL (75-110); Magnesium 2.6 mg/dL (1.6-2.3); Sodium 140 mmol/L (137-145)
[2020-04-16 07:12] LABS: INR 0.9; Prothrombin Time 12.5 Seconds (11.1-14.7)
[2020-04-16 07:18] LABS: Transferrin 122 mg/dL (206-381)
[2020-04-16 07:21] LABS: Partial Thromboplastin Time 23.7 SECONDS (22.3-36.8)
[2020-04-16 08:49] LABS: Platelet Estimate Adequate (Adequate)
[2020-04-16 08:50] LABS: Atypical Lymphocytes Present
[2020-04-16] MEDS: PANTOPRAZOLE 40 MG TABLET PO ×2 (09:10→20:08)
[2020-04-16] MEDS: DEXTROMETHORPHAN POLISTIREX 60 MG/10 ML SYRINGE PO ×2 (09:11→22:32)
[2020-04-16] MEDS: ENOXAPARIN 40 MG/0.4 ML SYRINGE SUB-Q ×2 (09:11→20:09)
--- NOTE | 2020-04-16 12:00 | PCSTNOTE ---
Patient is being discharged this date due to plateau in the area of Speech Therapy/swallowing. Patient has been observed to cough while eating and cough when not eating. He has been instructed in the use of head flexion and has been instructed in swallowing strengthening exercises. As chest x-ray is not positive for aspiration pneumonia, he is being discharged from [facility] as safe swallowing strategies and home program are in place. He may be re-evaluated in the future should any new signs/symptoms of aspiration are observed.
--- NOTE | 2020-04-16 12:40 | P.PNINT_ITS ---
Progress Note: A&P Assessment and Plan (1) Pneumonia due to COVID-19 virus: Code(s): U07.1 - COVID-19; J12.89 - Other viral pneumonia Status: Acute Assessment and Plan: patient admitted on 04/04/2020 with increasing shortness of breath, fevers, chills and cough. SARS-CoV-2 PCR PCR was positive on 03/28/2020 - chest x-ray shows - Diffuse lung disease with slight improvement, consistent with pneumonia and/or pulmonary edema and/or acute respiratory distress syndrome (ARDS). - completed course of azithromycin and ceftriaxone which was started on 04/05/2020. - Completed course of Remdesivir ( started on 04/05/2020) - continue dexamethasone which was started on d 04/06/2020 - received a unit of convalescent COVID-19 plasma on 04/06/2020 And 04/08/2020 - continue airborne, droplet, contact isolation and precautions - inflammatory markers are elevated, will continue to trend - patient currently on high-flow nasal cannula and intermittent non-rebreather mask as adjuvant oxygen support - continue p.r.n. nasal saline and Afrin spray for nasal congestion - continue Tessalon Perles and dextromethorphan with seems to have helped his cough to an extent - goal to keep dry as much possible. he did receive Lasix few days ago but does not appear hypervolemic at this time - continue IS and up in chair to minimize atelectasis (2) Acute respiratory failure with hypoxemia: Code(s): J96.01 - Acute respiratory failure with hypoxia Status: Acute Assessment and Plan: as above (3) Acute renal failure: Qualifiers: Acute renal failure type: unspecified Qualified Code(s): N17.9 - Acute kidney failure, unspecified Code(s): N17.9 - Acute kidney failure, unspecified Status: Resolved Assessment and Plan: RESOLVED acute renal failure could be related to decreased p.o. intake secondary to coughing bouts - creatinine back to baseline - off of IV fluids now - monitor urine output, ill function electrolytes (4) Chronic GERD: Code(s): K21.9 - Gastro-esophageal reflux disease without esophagitis Status: Chronic Assessment and Plan: continue IV PPI (5) Adult hypothyroidism: Code(s): E03.9 - Hypothyroidism, unspecified Status: Chronic Assessment and Plan: continue levothyroxine (6) Benign essential hypertension: Code(s): I10 - Essential (primary) hypertension Status: Chronic Assessment and Plan: blood pressure is within normal limits, will hold antihypertensives at this time (7) DVT prophylaxis: Code(s): Z29.9 - Encounter for prophylactic measures, unspecified Status: Acute Assessment and Plan: high D-dimer level. patient is on intermediate does of Lovenox at 40 mg Sub-cu Q12H (8) Dietary counseling and surveillance: Code(s): Z71.3 - Dietary counseling and surveillance Status: Acute Assessment and Plan: patient has been choking on his food question possible secondary to coughing and or some history of narrowing of the esophagus see stated he is to have vomiting in the past which improved with a pill that the physician gave him. He is unable provide any more history. Per his father, patient was at [facility] about 8-10 years ago, he use to have bouts of cough being and was unable to keep his food down and had a lot of vomiting then. He was placed on some medication which helped him with that. He was taken of that pill, does not remember when, after his symptoms improved. - was started on PPN on 04/05/2020 and staff was unable t
--- NOTE | 2020-04-16 13:02 | PCDIET ---
Nutrition Follow-Up Complete: Nutrition Diagnosis: Inadequate oral intake related to pneumonia as evidenced by NPO status, weight loss prior to admission. Nutrition Goal: Patient to meet estimated nutritional needs. Goal in progress. Intakes have declined somewhat since last review, but patient still consistently taking Ensure Enlive TID. Recommend continuing full liquid, nectar thick diet, as tolerated, with Ensure Enlive TID and prn. Last recorded weight is 82.6 kg which is down from last review. Bowel Motility: Last documented BM on 04/15/20. Labs Reviewed: Hgb (11.6), Hct (34.9), Glu (132), BUN (29), TG (175), Alb (3.4), Mani Ca (8.78) Meds Noted: Albuterol, Synthroid, Protonix Additional Notes: Nose with abrasion. No documented pressure ulcers. Will continue to monitor with same goal. Nutrition Monitoring and Evaluation: Follow up in 3 days.
--- NOTE | 2020-04-16 13:18 | PM.IMPN ---
Progress Note: A&P Assessment and Plan (1) Pneumonia due to COVID-19 virus: Code(s): U07.1 - COVID-19; J12.89 - Other viral pneumonia Status: Acute Assessment and Plan: Still on high flow oxygen but apparently doing better. Completed remdesivir, on Dexamethasone, also received convalescent plasma. Completed course of empiric antibiotics, ceftriaxone and azithromycin. (2) Acute respiratory failure with hypoxemia: Code(s): J96.01 - Acute respiratory failure with hypoxia Status: Acute Assessment and Plan: As above due to SARS COV -2. (3) Acute renal failure: Qualifiers: Acute renal failure type: unspecified Qualified Code(s): N17.9 - Acute kidney failure, unspecified Code(s): N17.9 - Acute kidney failure, unspecified Status: Resolved Assessment and Plan: Resolved (4) Benign essential hypertension: Code(s): I10 - Essential (primary) hypertension Status: Chronic Assessment and Plan: Stable (5) Adult hypothyroidism: Code(s): E03.9 - Hypothyroidism, unspecified Status: Chronic Assessment and Plan: Cont home medicine. (6) Hyperlipidemia: Qualifiers: Hyperlipidemia type: unspecified Qualified Code(s): E78.5 - Hyperlipidemia, unspecified Code(s): E78.5 - Hyperlipidemia, unspecified Status: Chronic Subjective Date/time seen: No complains today, he is slowly improving but still requiring high flow O2 with Fi O2 of 90%. 04/16/20 13:18 Review of Systems Review of Systems: All systems reviewed & are unremarkable except as noted in HPI and below Exam Const: General: cooperative, alert and awake Orientation/consciousness: patient oriented x3 HENMT: Head: normal to inspection Neck: Neck: supple Resp: Effort & Inspection: able to speak in complete sentences Auscultation: crackles and diminished lung sounds Cardio: Jugular venous distension: no JVD Rate: regular rate Rhythm: regular rhythm Heart sounds: S1 normal heart sound present and S2 normal heart sound present GI: Auscultation: normal bowel sounds Other: Non tender, non distended. Skin: General skin exam: no rashes or lesions noted Neuro: General: patient oriented x3, moves all extremities and no focal motor deficits Objective Data Vital Signs Vital Signs: Vital Signs - 24 hr 04/15/20 14:00 04/15/20 14:17 04/15/20 16:00 Temperature 97.8 F Pulse Rate 108 H 106 H 104 H Respiratory Rate 38 H 35 H 32 H Blood Pressure 130/87 144/86 H Pulse Oximetry 97 96 92 04/15/20 17:44 04/15/20 18:00 04/15/20 20:00 Temperature 98.1 F Pulse Rate 105 H 112 H 67 Respiratory Rate 32 H 43 H Blood Pressure 129/90 124/69 Pulse Oximetry 96 95 04/15/20 20:40 04/15/20 20:49 04/15/20 20:50 Temperature Pulse Rate 111 H 111 H 111 H Respiratory Rate 28 H 28 H 28 H Blood Pressure Pulse Oximetry 92 04/15/20 21:00 04/15/20 22:00 04/16/20 00:00 Temperature 98.4 F 98.4 F Pulse Rate 105 H 91 Respiratory Rate 28 H 30 H Blood Pressure 120/100 H 117/89 Pulse Oximetry 97 96 04/16/20 02:00 04/16/20 02:20 04/16/20 02:28 Temperature Pulse Rate 82 89 89 Respiratory Rate 31 H 24 H 24 H Blood Pressure 127/78 Pulse Oximetry 94 04/16/20 04:00 04/16/20 06:00 04/16/20 08:00 Temperature 97.0 F L 98 F Pulse Rate 106 H 93 100 Respiratory Rate 37 H 32 H 36 H Blood Pressure 146/105 H 137/90 127/88 Pulse Oximetry 93 90 90 04/16/20 08:43 04/16/20 10:00 04/16/20 11:36 Temperature Pulse Rate 97 109 H Respiratory Rate 20 40 H Blood Pressure 131/87 Pulse Oximetry 95 98 93 Intake/Output Intake/Output: Intake & Output 04/13/20 04/14/20 04/15/20 04/16/20 23:59 23:59 23:59 23:59 Intake Total 150 1970 1920 100 Output Total 1415 1850 1100 450 Balance -1265 120 820 -350 Meds/Results Medications: Active Medications Generic Name Dose Route Star
[2020-04-16] MEDS: MELATONIN 3 MG TABLET PO (20:07)
[2020-04-16] MEDS: ALPRAZolam (*CRX) 0.125 MG TABLET PO (20:07)
[2020-04-16] MEDS: ACETAMINOPHEN 325 MG TABLET 650 MG PO (20:40)
[2020-04-17] VITALS (34 sets, daily range): BP systolic 84–154; BP diastolic 62–106; PULSE 104–141; RESP 22–50; TEMP 36.4–38.1; O2SAT 87–99
[2020-04-17] MEDS: ALBUTEROL SULFATE NEB 2.5 MG/0.5 ML INH INHALATION ×4 (02:59→19:59)
[2020-04-17] MEDS: ACETAMINOPHEN 325 MG TABLET 650 MG PO (04:19)
[2020-04-17] MEDS: CENTRAL LINE FLUSH 10 ML IV PUSH ×3 (04:20→20:32)
[2020-04-17] MEDS: CENTRAL LINE FLUSH 20 ML IV PUSH (04:21)
[2020-04-17 04:56] LABS: Hematocrit 34.4 % (42.0-52.0); Hemoglobin 11.3 g/dL (14.0-18.0); Mean Corpuscular HGB Conc 32.8 g/dl (32-36); Mean Corpuscular Hemoglobin 31.2 pg (26-34); Mean Platelet Volume 11.5 fl (7.4-10.4); Platelet Count Result 375 k/mm3 (150-375); Red Blood Count 3.62 M/mm3 (4.6-6.20); Red Cell Distribution Width 12.5 % (11.5-14.5); White Blood Count 15.7 K/mm3 (4.5-10.0)
[2020-04-17 05:17] LABS: Alanine Aminotransferase 110 U/L (4-50); Albumin Level 3.3 g/dL (3.5-5.1); Alkaline Phosphatase 266 U/L (38-126); Anion Gap 10 mmol/L (8-16); Aspartate Amino Transferase 90 U/L (17-59); Bilirubin,Total 0.9 mg/dL (0.2-1.3); Blood Urea Nitrogen 33 mg/dL (9-20); Calcium 8.2 mg/dL (8.4-10.2); Carbon Dioxide 37 mmol/L (22-30); Chloride 96 mmol/L (98-107); Estimated CRCL calculation 73 ml/min; Estimated Glomerular Filt Rate > 60; Glucose 130 mg/dL (75-110); Magnesium 2.3 mg/dL (1.6-2.3); Potassium 3.8 mmol/L (3.4-5.0); Sodium 143 mmol/L (137-145)
[2020-04-17 05:26] LABS: D Dimer 5.56 ug/mL (<0.48)
[2020-04-17 05:46] LABS: CRP 20.4 mg/dL (<1.0); Phosphorus 3.7 mg/dL (2.5-4.5)
[2020-04-17 06:09] LABS: Lactate Dehydrogenase 2089 U/L (313-618)
[2020-04-17] MEDS: LEVOTHYROXINE SODIUM 100 MCG TABLET PO (06:24)
[2020-04-17] MEDS: BENZONATATE 100 MG CAPSULE 200 MG PO ×2 (07:44→14:19)
[2020-04-17] MEDS: ENOXAPARIN 40 MG/0.4 ML SYRINGE SUB-Q ×2 (07:44→20:31)
[2020-04-17] MEDS: PANTOPRAZOLE 40 MG TABLET PO (07:45)
[2020-04-17] MEDS: ALPRAZolam (*CRX) 0.5 MG TABLET PO ×2 (09:28→14:19)
--- NOTE | 2020-04-17 13:52 | WPDINTPN ---
Progress Note: A&P Assessment and Plan (1) Pneumonia due to COVID-19 virus: Code(s): U07.1 - COVID-19; J12.89 - Other viral pneumonia Status: Acute Assessment and Plan: patient admitted on 04/04/2020 with increasing shortness of breath, fevers, chills and cough. SARS-CoV-2 PCR PCR was positive on 03/28/2020 - chest x-ray shows - Diffuse lung disease with slight improvement, consistent with pneumonia and/or pulmonary edema and/or acute respiratory distress syndrome (ARDS). - completed course of azithromycin and ceftriaxone which was started on 04/05/2020. - Completed course of Remdesivir ( started on 04/05/2020) - continue dexamethasone which was started on d 04/06/2020 - received a unit of convalescent COVID-19 plasma on 04/06/2020 And 04/08/2020 - continue airborne, droplet, contact isolation and precautions - inflammatory markers are elevated, will continue to trend - patient currently on high-flow nasal cannula and intermittent non-rebreather mask as adjuvant oxygen support - continue p.r.n. nasal saline and Afrin spray for nasal congestion - continue Tessalon Perles and dextromethorphan with seems to have helped his cough to an extent - goal to keep dry as much possible. he did receive Lasix few days ago but does not appear hypervolemic at this time - continue IS and up in chair to minimize atelectasis (2) Acute respiratory failure with hypoxemia: Code(s): J96.01 - Acute respiratory failure with hypoxia Status: Acute Assessment and Plan: as above (3) Acute renal failure: Qualifiers: Acute renal failure type: unspecified Qualified Code(s): N17.9 - Acute kidney failure, unspecified Code(s): N17.9 - Acute kidney failure, unspecified Status: Resolved Assessment and Plan: RESOLVED acute renal failure could be related to decreased p.o. intake secondary to coughing bouts - creatinine back to baseline - off of IV fluids now - monitor urine output, ill function electrolytes (4) Chronic GERD: Code(s): K21.9 - Gastro-esophageal reflux disease without esophagitis Status: Chronic Assessment and Plan: continue IV PPI (5) Adult hypothyroidism: Code(s): E03.9 - Hypothyroidism, unspecified Status: Chronic Assessment and Plan: continue levothyroxine (6) Benign essential hypertension: Code(s): I10 - Essential (primary) hypertension Status: Chronic Assessment and Plan: blood pressure is within normal limits, will hold antihypertensives at this time (7) DVT prophylaxis: Code(s): Z29.9 - Encounter for prophylactic measures, unspecified Status: Acute Assessment and Plan: high D-dimer level. patient is on intermediate does of Lovenox at 40 mg Sub-cu Q12H (8) Dietary counseling and surveillance: Code(s): Z71.3 - Dietary counseling and surveillance Status: Acute Assessment and Plan: patient has been choking on his food question possible secondary to coughing and or some history of narrowing of the esophagus see stated he is to have vomiting in the past which improved with a pill that the physician gave him. He is unable provide any more history. Per his father, patient was at [facility] about 8-10 years ago, he use to have bouts of cough being and was unable to keep his food down and had a lot of vomiting then. He was placed on some medication which helped him with that. He was taken of that pill, does not remember when, after his symptoms improved. - was started on PPN on 04/05/2020 and staff was unable to insert NG tube for feeding due to patient's bouts of coughing - speech therapy re-evaluated patient on 04/06/2020 and cleared him for clear liquid diet, patient has been started on full liquid diet - PPN DISCONTINUED to keep fluid intake - continue Ensure - patient had another swallow eval testing and diet changed to nectar thick
[2020-04-17 15:28] LABS: Alveolar/Arterial O2 Gradient 625.7 mmHg; Base Excess ABG 5.4 mEq/l (+/-2.0); Carboxyhemoglobin 0.3 % THb (0-2.0); Fractional Inspired Oxygen 100 %; HCO3 ABG 27.9 mEq/l (22.0-26.0); Methemoglobin ABG 0.2 %THb (0-1.5); Oxygen Content ABG 15.6 %vol (16.0-22.0); Oxygen Saturation ABG 91.5 % (95.0-100.0); Oxyhemoglobin 88.9 % THb (90.0-100.0); PCO2 ABG 33.7 mmHg (35.0-45.0); PO2 ABG 53.6 mmHg (80.0-100.0); PO2 FiO2 Ratio Arterial Blood 0.54 %; Reduced Hemoglobin 10.6 %THb (0-5.0); Site Drawn RIGHT RADIAL; Total Hemoglobin 12.5 g/dL (12.0-18.0); pH ABG 7.536 (7.350-7.450)
[2020-04-17 15:29] LABS: Device HIGH FLOW THERAPY; Modified Allen's Test Pass
--- NOTE | 2020-04-17 16:28 | WPDPROCEDUR ---
Procedures Intubation Intubation Date: 04/17/20 Intubation Time: 16:25 Consent: YES- from Patient A pre-procedural Time-Out was completed immediately before starting the procedure and confirmed: Patient Identification, Site, Procedure, Patient Position and the Availability of Requisite Equipment: Yes Sedative: etomidate Paralytic: rocuronium Laryngoscope: fiber optic video scope Assist device used: fiber optic device ET tube size: 8 Tube secured depth (cm): 24 Tube secured location: lips Tube placement confirmation: visualized tube passing through cords, equal breath sounds bilaterally, no breath sounds over epigastrium and confirmation by capnometry Patient tolerated procedure: well and no complications Intubation complications: none Additional comments: After obtaining consent from the patient and explaining the rationale for intubation. it was decided to go ahead and intubate the patient. The patient was lying in the supine position. Preoxygenation via BVM was provided for a minimum of 3 minutes. The patient had continuous cardiac as well as pulse oximetry monitoring during the procedure. Rapid sequence induction was provided by administration of Etomidate and Rocuronium. A Glidescope blade 4 was used to directly visualize the vocal cords. A 8 mm endotracheal tube was visualized advancing between the cords to a level of 24 cm at the lip. The stylette was then removed. Tube placement was also noted by fogging in the tube, equal and bilateral breath sounds, no sounds over the epigastrium, and end-tidal colorimetric monitoring. The cuff was then inflated with 10 ml of air and the tube secured using a commercially available device. A good pulse oximetry wave form was seen on the monitor throughout the procedure. The patient was then connected to the ventilator on pressure control ventilation; rate of 24; FiO2 of 100%; and PEEP of 10. A portable chest x-ray has been ordered for placement. Continued sedation will be provided by Fentanyl and Versed continuous infusion titrated to a RASS of -2. The patient tolerated the procedure well.
[2020-04-17] MEDS: FENTANYL 2,500MCG/NS250ML(*CRX 2,500 MCG/250 ML BAG 10 MCG IV CONT (17:08)
[2020-04-17 18:04] LABS: Alveolar/Arterial O2 Gradient 481.3 mmHg; Base Excess ABG -1.6 mEq/l (+/-2.0); Fractional Inspired Oxygen 100 %; HCO3 ABG 35.8 mEq/l (22.0-26.0); Methemoglobin ABG 0.6 %THb (0-1.5); Oxygen Content ABG 10.6 %vol (16.0-22.0); Oxyhemoglobin 56.1 % THb (90.0-100.0); PO2 ABG 50.5 mmHg (80.0-100.0); Reduced Hemoglobin 43.3 %THb (0-5.0); Total Hemoglobin 13.4 g/dL (12.0-18.0)
[2020-04-17 18:05] LABS: Device VENTILATOR; Modified Allen's Test Pass; Oxygen Saturation ABG 56.4 % (95.0-100.0); PCO2 ABG 181.2 mmHg (35.0-45.0); Site Drawn LEFT RADIAL; pH ABG 6.914 (7.350-7.450)
[2020-04-17 18:06] LABS: Arterial Blood Gas PEEP 14 cmH2O; Arterial Blood Gas Vent Mode PRESSURE CONTROL; Arterial Blood Gas Ventilator rate 24 /MIN
[2020-04-17 18:07] LABS: Peak Inspiratory Pressure 12 cmH2O
[2020-04-17 18:44] LABS: Glucose Point of Care 305 (65-105)
[2020-04-17 18:49] LABS: Alveolar/Arterial O2 Gradient 514.7 mmHg; Base Excess ABG 0.4 mEq/l (+/-2.0); Fractional Inspired Oxygen 100 %; HCO3 ABG 34.7 mEq/l (22.0-26.0); Oxygen Content ABG 16.2 %vol (16.0-22.0); Oxyhemoglobin 84.7 % THb (90.0-100.0); PO2 ABG 72.2 mmHg (80.0-100.0); PO2 FiO2 Ratio Arterial Blood 0.72 %; Total Hemoglobin 13.6 g/dL (12.0-18.0)
[2020-04-17 18:51] LABS: PCO2 ABG 126.1 mmHg (35.0-45.0); pH ABG 7.057 (7.350-7.450)
[2020-04-17 18:52] LABS: Arterial Blood Gas PEEP 14 cmH2O; Arterial Blood Gas Tidal Volume 480 ml; Arterial Blood Gas Vent Mode ASSIST CONTROL; Arterial Blood Gas Ventilator rate 28 /MIN; Device VENTILATOR; Modified Allen's Test Pass; Site Drawn RIGHT RADIAL
--- NOTE | 2020-04-17 19:00 | PC.NURSE ---
Patient's fentanyl found to be running at 200 mcg/hr. Versed found to be running at 6 mg/hr.
[2020-04-17] MEDS: CISATRACURIUM BESYLATE 20 MG/10 ML VIAL 12.5 MG IV PUSH (19:06)
[2020-04-17] MEDS: SODIUM BICARBONATE 8.4% 50 MEQ/50 ML VIAL 100 MEQ (19:11)
[2020-04-17 23:09] LABS: Alveolar/Arterial O2 Gradient 590.1 mmHg; Base Excess ABG 7.7 mEq/l (+/-2.0); Carboxyhemoglobin 0.3 % THb (0-2.0); Fractional Inspired Oxygen 100 %; Methemoglobin ABG 0.3 %THb (0-1.5); Modified Allen's Test Pass; Oxygen Content ABG 19.1 %vol (16.0-22.0); Oxygen Saturation ABG 95.5 % (95.0-100.0); Oxyhemoglobin 94.2 % THb (90.0-100.0); PCO2 ABG 48.2 mmHg (35.0-45.0); PO2 ABG 74.7 mmHg (80.0-100.0); PO2 FiO2 Ratio Arterial Blood 0.75 %; Reduced Hemoglobin 5.2 %THb (0-5.0); Site Drawn LEFT RADIAL; Total Hemoglobin 14.4 g/dL (12.0-18.0); pH ABG 7.453 (7.350-7.450)
[2020-04-17 23:10] LABS: Arterial Blood Gas PEEP 14 cmH2O; Arterial Blood Gas Vent Mode ASSIST CONTROL; Arterial Blood Gas Ventilator rate 28 /MIN; Device VENTILATOR
[2020-04-17 23:11] LABS: Arterial Blood Gas Tidal Volume 480 ml
[2020-04-17] MEDS: INSULIN ASPART (*BKC) 100 UNITS/ML SUB-Q (23:48)
[2020-04-17 23:51] LABS: Glucose Point of Care 207 (65-105)
[2020-04-18] VITALS (57 sets, daily range): BP systolic 86–155; BP diastolic 61–109; PULSE 83–121; RESP 25–111; TEMP 36.4–38.5; O2SAT 92–100
[2020-04-18] MEDS: ALBUTEROL SULFATE NEB 2.5 MG/0.5 ML INH INHALATION ×2 (03:20→15:00)
[2020-04-18 04:11] LABS: Hematocrit 33.1 % (42.0-52.0); Hemoglobin 10.6 g/dL (14.0-18.0); Mean Corpuscular Hemoglobin 31.5 pg (26-34); Mean Corpuscular Volume 98.5 fl (80-100); Mean Platelet Volume 11.2 fl (7.4-10.4); Platelet Count Result 296 k/mm3 (150-375); Red Blood Count 3.36 M/mm3 (4.6-6.20); Red Cell Distribution Width 12.8 % (11.5-14.5); White Blood Count 15.2 K/mm3 (4.5-10.0)
[2020-04-18 04:33] LABS: Alanine Aminotransferase 97 U/L (4-50); Albumin Level 3.1 g/dL (3.5-5.1); Alkaline Phosphatase 211 U/L (38-126); Anion Gap 3.99999 mmol/L (8-16); Aspartate Amino Transferase 87 U/L (17-59); Bilirubin,Total 0.5 mg/dL (0.2-1.3); Blood Urea Nitrogen 45 mg/dL (9-20); Calcium 7.8 mg/dL (8.4-10.2); Carbon Dioxide > 40 mmol/L (22-30); Chloride 94 mmol/L (98-107); Estimated CRCL calculation 39 ml/min; Estimated Glomerular Filt Rate 34; Glucose 124 mg/dL (75-110); Magnesium 2.8 mg/dL (1.6-2.3); Potassium 4.3 mmol/L (3.4-5.0); Sodium 138 mmol/L (137-145)
[2020-04-18] MEDS: CENTRAL LINE FLUSH 10 ML IV PUSH ×3 (05:52→20:00)
[2020-04-18] MEDS: LEVOTHYROXINE SODIUM INJ 100 MCG/5 ML VIAL 50 MCG IV PUSH (05:52)
[2020-04-18 06:33] LABS: Alveolar/Arterial O2 Gradient 590.1 mmHg; Base Excess ABG 5.9 mEq/l (+/-2.0); Carboxyhemoglobin 0.3 % THb (0-2.0); Fractional Inspired Oxygen 100 %; HCO3 ABG 29.4 mEq/l (22.0-26.0); Methemoglobin ABG 0.3 %THb (0-1.5); Oxygen Content ABG 15.8 %vol (16.0-22.0); Oxygen Saturation ABG 97.1 % (95.0-100.0); Oxyhemoglobin 95.3 % THb (90.0-100.0); PCO2 ABG 38.7 mmHg (35.0-45.0); PO2 ABG 84.2 mmHg (80.0-100.0); PO2 FiO2 Ratio Arterial Blood 0.84 %; Reduced Hemoglobin 4.1 %THb (0-5.0); Site Drawn LEFT RADIAL; Total Hemoglobin 11.7 g/dL (12.0-18.0); pH ABG 7.499 (7.350-7.450)
[2020-04-18 06:34] LABS: Arterial Blood Gas PEEP 14 cmH2O; Arterial Blood Gas Tidal Volume 480 ml; Arterial Blood Gas Vent Mode ASSIST CONTROL; Arterial Blood Gas Ventilator rate 28 /MIN; Device VENTILATOR; Modified Allen's Test Pass
[2020-04-18] MEDS: ENOXAPARIN 40 MG/0.4 ML SYRINGE SUB-Q ×2 (08:09→20:00)
[2020-04-18] MEDS: PANTOPRAZOLE SODIUM IV 40 MG VIAL IV PUSH (08:10)
[2020-04-18] MEDS: SODIUM CHLORIDE 0.9% IV 500 ML IV CONT (08:16)
[2020-04-18 11:18] LABS: Base Excess ABG 2.7 mEq/l (+/-2.0); Fractional Inspired Oxygen 90 %; HCO3 ABG 33.7 mEq/l (22.0-26.0); Oxygen Content ABG 18.1 %vol (16.0-22.0); Oxygen Saturation ABG 97.1 % (95.0-100.0); Oxyhemoglobin 95.9 % THb (90.0-100.0); PO2 ABG 117.9 mmHg (80.0-100.0); PO2 FiO2 Ratio Arterial Blood 1.31 %; Total Hemoglobin 13.3 g/dL (12.0-18.0)
[2020-04-18 11:19] LABS: PCO2 ABG 89.6 mmHg (35.0-45.0); pH ABG 7.193 (7.350-7.450)
[2020-04-18 11:20] LABS: Device VENTILATOR; Modified Allen's Test Pass; Site Drawn RIGHT RADIAL
[2020-04-18 11:22] LABS: Arterial Blood Gas PEEP 12 cmH2O; Arterial Blood Gas Vent Mode PRESSURE CONTROL; Arterial Blood Gas Ventilator rate 26 /MIN; Peak Inspiratory Pressure 14 cmH2O
--- NOTE | 2020-04-18 11:38 | PM.IMPN ---
Progress Note: A&P Assessment and Plan (1) Pneumonia due to COVID-19 virus: Code(s): U07.1 - COVID-19; J12.89 - Other viral pneumonia Status: Acute Assessment and Plan: positive 03/28/2020 Intubated CMV mode FIO2 90%, peep 14 Completed remdesivir 04/05-04/09, on Dexamethasone 04/06-, also received convalescent plasma x2 04/06 and 04/08. Completed course of empiric antibiotics, ceftriaxone and azithromycin. on lovenox 40mg BID (2) Acute respiratory failure with hypoxemia: Code(s): J96.01 - Acute respiratory failure with hypoxia Status: Acute Assessment and Plan: As above due to SARS COV -2. (3) Acute renal failure: Qualifiers: Acute renal failure type: unspecified Qualified Code(s): N17.9 - Acute kidney failure, unspecified Code(s): N17.9 - Acute kidney failure, unspecified Status: Resolved Assessment and Plan: worsening renal function, may be pre-renal, IVF bolus given today (4) Benign essential hypertension: Code(s): I10 - Essential (primary) hypertension Status: Chronic Assessment and Plan: BP stable, watching (5) Adult hypothyroidism: Code(s): E03.9 - Hypothyroidism, unspecified Status: Chronic (6) Hyperlipidemia: Qualifiers: Hyperlipidemia type: unspecified Qualified Code(s): E78.5 - Hyperlipidemia, unspecified Code(s): E78.5 - Hyperlipidemia, unspecified Status: Chronic (7) Dietary counseling and surveillance: Code(s): Z71.3 - Dietary counseling and surveillance Status: Acute Assessment and Plan: starting tube feeds Subjective Date/time seen: 04/18/20 11:38 patient examined. COVID-19 convalescent plasma 04/06 and 04/08. Following quarter supervisor management. patient intubated 04/17- CMV mode, FiO2 60%, peep 5. Worsening kidney function being addressed with IVF for possible pre-renal etiology. Review of Systems Review of Systems: ROS unobtainable: Yes unobtainable due to endotracheal tube Exam Narrative: Exam Narrative: - GENERAL: ill-appearing male intubated sedated - HENT: ET tube in place - LUNGS: diminished lung sounds - CARDIOVASCULAR: Regular rate and rhythm. No murmur. No JVD. - ABDOMEN: hypoactive bowel sounds - EXTREMITIES: No edema. Peripheral pulses 2+. Non-tender. - NEUROLOGIC: unable to evaluate intubated sedated - PSYCHIATRIC: unable to evaluate intubated sedated Objective Data Vital Signs Vital Signs: Vital Signs - 24 hr 04/17/20 12:00 04/17/20 14:00 04/17/20 14:01 Temperature 37.2 C 37.0 C Pulse Rate 122 H 121 H 120 H Respiratory Rate 32 H 50 H 28 H Blood Pressure 142/106 H 142/89 H Pulse Oximetry 93 93 04/17/20 14:02 04/17/20 16:00 04/17/20 16:30 Temperature Pulse Rate 123 H 125 H 133 H Respiratory Rate 28 H 32 H Blood Pressure 123/82 Pulse Oximetry 93 91 90 04/17/20 17:08 04/17/20 18:00 04/17/20 18:25 Temperature Pulse Rate 141 H 130 H 136 H Respiratory Rate 32 H 28 H Blood Pressure 131/83 Pulse Oximetry 87 L 90 04/17/20 19:08 04/17/20 20:00 04/17/20 20:02 Temperature 36.4 C L Pulse Rate 135 H 123 H 122 H Respiratory Rate 28 H 28 H Blood Pressure 128/83 109/68 Pulse Oximetry 94 94 04/17/20 20:12 04/17/20 20:20 04/17/20 21:10 Temperature Pulse Rate 118 H 118 H 112 H Respiratory Rate 28 H 28 H 28 H Blood Pressure Pulse Oximetry 04/17/20 22:00 04/17/20 22:12 04/17/20 22:13 Temperature Pulse Rate 107 H 107 H 108 H Respiratory Rate 28 H 28 H 28 H Blood Pressure 87/74 L Pulse Oximetry 94 04/17/20 22:14 04/17/20 23:00 04/17/20 23:18 Temperature Pulse Rate 107 H 106 H 107 H Respiratory Rate 28 H 28 H Blood Pressure 84/62 L Pulse Oximetry 94 04/18/20 00:00 04/18/20 00:22 04/18/20 01:08 Temperature 36.4 C Pulse Rate 103 H 102 H 102 H Respiratory Rate 28 H 28 H 28 H Blood Pressure 86/61 L 91/71 L 93/80 L Pulse Oximetry
--- NOTE | 2020-04-18 11:41 | PCFNICU ---
ICU Rounding Note: Pt current nutrition is NPO. Nutrition recommendation: Vital AR 1.2 Last recorded weight is 85.1kg down from 96.4 on admit. Bowel Motility: +BM reported 04/15. Labs Reviewed: Cr 2.1,BUN 45,Glu 124,Alb 3.1 Meds Noted:Fentanyl, Nimbex,Versed Additional Notes: Patient current on mechanical ventilator. Tube feedings recommendations: Vital AF 1.2 at 10 ml/hr, trickle feedings at this time. Would recommend goal rate at 75 ml/hr providing 1980 kcals/123 gm protein/ 1338 ml water. Skin issues: abrasion under nose noted. Following daily in ICU rounds. Assessing/reassessing every Thursday and Thursday.
[2020-04-18] MEDS: FENTANYL 2,500MCG/NS250ML(*CRX 2,500 MCG/250 ML BAG 10 MCG IV CONT (12:40)
--- NOTE | 2020-04-18 13:04 | WPDINTPN ---
Progress Note: A&P Assessment and Plan (1) Pneumonia due to COVID-19 virus: Code(s): U07.1 - COVID-19; J12.89 - Other viral pneumonia Status: Acute Assessment and Plan: patient admitted on 04/04/2020 with increasing shortness of breath, fevers, chills and cough. SARS-CoV-2 PCR PCR was positive on 03/28/2020 - chest x-ray shows - Diffuse lung disease with slight improvement, consistent with pneumonia and/or pulmonary edema and/or acute respiratory distress syndrome (ARDS). - completed course of azithromycin and ceftriaxone which was started on 04/05/2020. - Completed course of Remdesivir ( started on 04/05/2020) - continue dexamethasone which was started on d 04/06/2020 - received a unit of convalescent COVID-19 plasma on 04/06/2020 And 04/08/2020 - continue airborne, droplet, contact isolation and precautions - inflammatory markers are elevated, will continue to trend (2) Acute respiratory failure with hypoxemia: Code(s): J96.01 - Acute respiratory failure with hypoxia Status: Acute Assessment and Plan: patient with COVID-19 19 pneumonia, - on 04/17/2020, patient was hypoxic, tachypneic with respiratory rates in the 35-50, impending respiratory failure, was intubated - initially placed on pressure control ventilation, ABGs reveal significant respiratory acidosis, patient was placed on CMV mode of ventilation and ABGs improved significantly. - Patient is on the old bird 8400 ventilator, there is a discrepancy with inhaled and exhaled tidal volume numbers. - Patient in peep of 14, FiO2 of 90% - continue bronchodilators (3) Acute renal failure: Qualifiers: Acute renal failure type: unspecified Qualified Code(s): N17.9 - Acute kidney failure, unspecified Code(s): N17.9 - Acute kidney failure, unspecified Status: Resolved Assessment and Plan: creatinine increased to 2.1 ( from 1.1 on 04/17/2020) could be related to hypoxia, Hypovolemia, - given 500 IV fluid bolus this morning, will continue to monitor urine output and renal function - may require maintenance IV fluids - monitor urine output, ill function electrolytes (4) Chronic GERD: Code(s): K21.9 - Gastro-esophageal reflux disease without esophagitis Status: Chronic Assessment and Plan: continue IV PPI (5) Adult hypothyroidism: Code(s): E03.9 - Hypothyroidism, unspecified Status: Chronic Assessment and Plan: continue levothyroxine (6) Benign essential hypertension: Code(s): I10 - Essential (primary) hypertension Status: Chronic Assessment and Plan: blood pressure is within normal limits, will hold antihypertensives at this time (7) DVT prophylaxis: Code(s): Z29.9 - Encounter for prophylactic measures, unspecified Status: Acute Assessment and Plan: high D-dimer level. patient is on intermediate does of Lovenox at 40 mg Sub-cu Q12H (8) Dietary counseling and surveillance: Code(s): Z71.3 - Dietary counseling and surveillance Status: Acute Assessment and Plan: will start trickle tube feeds patient has been choking on his food question possible secondary to coughing and or some history of narrowing of the esophagus see stated he is to have vomiting in the past which improved with a pill that the physician gave him. He is unable provide any more history. Per his father, patient was at [facility] about 8-10 years ago, he use to have bouts of cough being and was unable to keep his food down and had a lot of vomiting then. He was placed on some medication which helped him with that. He was taken of that pill, does not remember when, after his symptoms improved. - was started on PPN on 04/05/2020 and staff was unable to insert NG tube for feeding due to patient's bouts of coughing - speech therapy re-evaluated patient on 04/06/2020 and cleared him for clear liquid diet, patient
[2020-04-18 13:14] LABS: Alveolar/Arterial O2 Gradient 519.2 mmHg; Base Excess ABG 4.8 mEq/l (+/-2.0); Fractional Inspired Oxygen 90 %; HCO3 ABG 30.2 mEq/l (22.0-26.0); Oxygen Content ABG 15.1 %vol (16.0-22.0); Oxygen Saturation ABG 94.8 % (95.0-100.0); Oxyhemoglobin 92.9 % THb (90.0-100.0); PCO2 ABG 47.9 mmHg (35.0-45.0); PO2 ABG 73.4 mmHg (80.0-100.0); PO2 FiO2 Ratio Arterial Blood 0.82 %; Total Hemoglobin 11.5 g/dL (12.0-18.0); pH ABG 7.417 (7.350-7.450)
[2020-04-18 13:15] LABS: Device VENTILATOR; Modified Allen's Test Pass; Site Drawn RIGHT RADIAL
[2020-04-18 13:16] LABS: Arterial Blood Gas PEEP 12 cmH2O; Arterial Blood Gas Tidal Volume 460 ml; Arterial Blood Gas Vent Mode CMV; Arterial Blood Gas Ventilator rate 26 /MIN
[2020-04-18 13:31] LABS: Glucose Point of Care 143 (65-105)
[2020-04-18] MEDS: IPRATROPIUM BR 0.02% INH SOLN 0.5 MG/2.5 ML VIAL INHALATION (15:00)
[2020-04-18 18:48] LABS: Glucose Point of Care 116 (65-105)
[2020-04-19] VITALS (47 sets, daily range): BP systolic 94–139; BP diastolic 66–95; PULSE 62–104; RESP 23–30; TEMP 37.3–38.5; O2SAT 91–100
[2020-04-19 00:31] LABS: Glucose Point of Care 176 (65-105)
[2020-04-19] MEDS: IPRATROPIUM BR 0.02% INH SOLN 0.5 MG/2.5 ML VIAL INHALATION ×5 (03:13→20:52)
[2020-04-19] MEDS: ALBUTEROL SULFATE NEB 2.5 MG/0.5 ML INH INHALATION ×5 (03:14→20:52)
[2020-04-19 05:38] LABS: Basophils Percent Auto 0.2 % (0.2-1.2); Eosinophils Absolute Auto 0.7 K/mm3 (0-0.3); Eosinophils Percent Auto 5.5 % (0-4.4); Hematocrit 31.6 % (42.0-52.0); Hemoglobin 10.3 g/dL (14.0-18.0); Immature Granulocyte Absolute 0.17 K/mm3 (0.00-0.031); Immature Granulocyte Percent A 1.4 % (0-0.5); Lymphocytes Absolute Auto 0.69 K/mm3 (0.9-3.2); Lymphocytes Percent Auto 5.6 % (18.3-44.2); Mean Corpuscular HGB Conc 32.6 g/dl (32-36); Mean Corpuscular Hemoglobin 32.4 pg (26-34); Mean Corpuscular Volume 99.4 fl (80-100); Mean Platelet Volume 11.6 fl (7.4-10.4); Monocytes Absolute Auto 0.2 K/mm3 (0.1-0.6); Monocytes Percent Auto 1.8 % (2.6-8.5); Neutrophils Absolute Auto 10.5 K/mm3 (1.3-6.7); Neutrophils Percent Auto 85.5 % (45.5-73.1); Nucleated Red Blood Cells Perc 0.2 % (0.0-0.2); Platelet Count Result 285 k/mm3 (150-375); Red Blood Count 3.18 M/mm3 (4.6-6.20); Red Cell Distribution Width 12.8 % (11.5-14.5); White Blood Count 12.3 K/mm3 (4.5-10.0)
[2020-04-19] MEDS: LEVOTHYROXINE SODIUM INJ 100 MCG/5 ML VIAL 50 MCG IV PUSH (05:41)
[2020-04-19] MEDS: CENTRAL LINE FLUSH 10 ML IV PUSH ×3 (05:41→20:07)
[2020-04-19 05:54] LABS: Alanine Aminotransferase 77 U/L (4-50); Albumin Level 2.8 g/dL (3.5-5.1); Alkaline Phosphatase 202 U/L (38-126); Anion Gap 1 mmol/L (8-16); Aspartate Amino Transferase 64 U/L (17-59); Bilirubin,Total 0.7 mg/dL (0.2-1.3); Blood Urea Nitrogen 40 mg/dL (9-20); Calcium 7.6 mg/dL (8.4-10.2); Carbon Dioxide 38 mmol/L (22-30); Chloride 95 mmol/L (98-107); Estimated CRCL calculation 58 ml/min; Estimated Glomerular Filt Rate 54; Glucose 150 mg/dL (75-110); Lactate Dehydrogenase 1511 U/L (313-618); Magnesium 2.8 mg/dL (1.6-2.3); Phosphorus 3.4 mg/dL (2.5-4.5); Potassium 3.7 mmol/L (3.4-5.0); Sodium 134 mmol/L (137-145)
[2020-04-19 05:58] LABS: D Dimer 3.95 ug/mL (<0.48)
[2020-04-19 06:00] LABS: Alveolar/Arterial O2 Gradient 443.8 mmHg; Base Excess ABG 6.8 mEq/l (+/-2.0); Carboxyhemoglobin 0.3 % THb (0-2.0); Fractional Inspired Oxygen 80 %; HCO3 ABG 31.6 mEq/l (22.0-26.0); Methemoglobin ABG 0.2 %THb (0-1.5); Oxygen Content ABG 15.2 %vol (16.0-22.0); Oxygen Saturation ABG 96.1 % (95.0-100.0); Oxyhemoglobin 94.5 % THb (90.0-100.0); PCO2 ABG 45.6 mmHg (35.0-45.0); PO2 ABG 78.7 mmHg (80.0-100.0); PO2 FiO2 Ratio Arterial Blood 0.98 %; Total Hemoglobin 11.4 g/dL (12.0-18.0); pH ABG 7.458 (7.350-7.450)
[2020-04-19 06:03] LABS: Modified Allen's Test Pass; Site Drawn RIGHT RADIAL
[2020-04-19 06:04] LABS: Device VENTILATOR
[2020-04-19 06:08] LABS: Arterial Blood Gas PEEP 12 cmH2O; Arterial Blood Gas Tidal Volume 460 ml; Arterial Blood Gas Vent Mode CMV; Arterial Blood Gas Ventilator rate 26 /MIN
[2020-04-19 06:20] LABS: CRP 44.3 mg/dL (<1.0)
[2020-04-19 06:58] LABS: Glucose Point of Care 175 (65-105)
[2020-04-19] MEDS: PANTOPRAZOLE SODIUM IV 40 MG VIAL IV PUSH (09:21)
[2020-04-19] MEDS: ENOXAPARIN 40 MG/0.4 ML SYRINGE SUB-Q ×2 (09:21→20:06)
--- NOTE | 2020-04-19 12:18 | PCDIET ---
ICU Rounding Note: Pt current nutrition is Vital 1.2 at 20ml/hr Nutrition recommendation: Increase to goal of 40ml/hr today Last recorded weight is 90kg, up from 83.2kg Thursday Bowel Motility: BM today Labs Reviewed:Glucose 175, C Reactive 44.3, AST/ALT 64, 77, Albumin 2.8, Na 134, Cr 1.40, GFR 54 WBC 12.3 Meds Noted:Albuterol, Fentanyl, Lovenox, Novolog, Synthroid, Versed Additional Notes: Pt tolerating 20ml/hr Vital 1.2 with 5 ml residual. Plans to increase to 40ml/hr today and assess for tolerance. Following daily in ICU rounds. Assessing/reassessing T/F.
[2020-04-19 12:34] LABS: Glucose Point of Care 95 (65-105)
[2020-04-19] MEDS: FENTANYL 2,500MCG/NS250ML(*CRX 2,500 MCG/250 ML BAG 20 MCG IV CONT (12:43)
--- NOTE | 2020-04-19 13:03 | WPDINTPN ---
Progress Note: A&P Assessment and Plan (1) Acute respiratory failure with hypoxemia: Code(s): J96.01 - Acute respiratory failure with hypoxia Status: Acute Assessment and Plan: patient with COVID-19 19 pneumonia, - Patient was intubated on on 04/17/2020 since he was was hypoxic, tachypneic with respiratory rates in the 35-50, impending respiratory failure. - CMV mode of ventilation and ABGs improved significantly. will wean FiO2 and decreased respiratory rate, peep of 12 - Patient is on the old bird 8400 ventilator, there is a discrepancy with inhaled and exhaled tidal volume numbers. - continue bronchodilators - on fentanyl and Versed infusion for sedation - Nimbex for neuromuscular blockade, try to wean off Nimbex today but patient was, dyssynchronous with the ventilator and desaturating in the 80s. Nimbex was restarted (2) Pneumonia due to COVID-19 virus: Code(s): U07.1 - COVID-19; J12.89 - Other viral pneumonia Status: Acute Assessment and Plan: patient admitted on 04/04/2020 with increasing shortness of breath, fevers, chills and cough. SARS-CoV-2 PCR PCR was positive on 03/28/2020 - chest x-ray shows - Diffuse lung disease with slight improvement, consistent with pneumonia and/or pulmonary edema and/or acute respiratory distress syndrome (ARDS). - completed course of azithromycin and ceftriaxone which was started on 04/05/2020. - Completed course of Remdesivir ( started on 04/05/2020) - completed dexamethasone (started on 04/06/2020) - received a unit of convalescent COVID-19 plasma on 04/06/2020 And 04/08/2020 - continue airborne, droplet, contact isolation and precautions - inflammatory markers are elevated, will continue to trend (3) Acute renal failure: Qualifiers: Acute renal failure type: unspecified Qualified Code(s): N17.9 - Acute kidney failure, unspecified Code(s): N17.9 - Acute kidney failure, unspecified Status: Resolved Assessment and Plan: creatinine increased to 2.1 ( from 1.1 on 04/17/2020) could be related to hypoxia, Hypovolemia, - patient was given a small fluid bolus, creatinine down to 1.4 today on 04/19/2020, continue monitor urine output, renal function electrolytes - may require maintenance IV fluids (4) Chronic GERD: Code(s): K21.9 - Gastro-esophageal reflux disease without esophagitis Status: Chronic Assessment and Plan: continue IV PPI (5) Adult hypothyroidism: Code(s): E03.9 - Hypothyroidism, unspecified Status: Chronic Assessment and Plan: continue levothyroxine (6) Benign essential hypertension: Code(s): I10 - Essential (primary) hypertension Status: Chronic Assessment and Plan: blood pressure is within normal limits, will hold antihypertensives at this time (7) DVT prophylaxis: Code(s): Z29.9 - Encounter for prophylactic measures, unspecified Status: Acute Assessment and Plan: high D-dimer level. patient is on intermediate does of Lovenox at 40 mg Sub-cu Q12H (8) Dietary counseling and surveillance: Code(s): Z71.3 - Dietary counseling and surveillance Status: Acute Assessment and Plan: will start trickle tube feeds patient has been choking on his food question possible secondary to coughing and or some history of narrowing of the esophagus see stated he is to have vomiting in the past which improved with a pill that the physician gave him. He is unable provide any more history. Per his father, patient was at [facility] about 8-10 years ago, he use to have bouts of cough being and was unable to keep his food down and had a lot of vomiting then. He was placed on some medication which helped him with that. He was taken of that pill, does not remember when, after his symptoms improved. - was started on PPN on 04/05/2020 and staff was unable to insert NG tube for feeding due to
--- NOTE | 2020-04-19 15:58 | PM.IMPN ---
Progress Note: A&P Assessment and Plan (1) Pneumonia due to COVID-19 virus: Code(s): U07.1 - COVID-19; J12.89 - Other viral pneumonia Status: Acute (2) Acute respiratory failure with hypoxemia: Code(s): J96.01 - Acute respiratory failure with hypoxia Status: Acute (3) Acute renal failure: Qualifiers: Acute renal failure type: unspecified Qualified Code(s): N17.9 - Acute kidney failure, unspecified Code(s): N17.9 - Acute kidney failure, unspecified Status: Resolved (4) Benign essential hypertension: Code(s): I10 - Essential (primary) hypertension Status: Chronic (5) Adult hypothyroidism: Code(s): E03.9 - Hypothyroidism, unspecified Status: Chronic (6) Hyperlipidemia: Qualifiers: Hyperlipidemia type: unspecified Qualified Code(s): E78.5 - Hyperlipidemia, unspecified Code(s): E78.5 - Hyperlipidemia, unspecified Status: Chronic (7) Dietary counseling and surveillance: Code(s): Z71.3 - Dietary counseling and surveillance Status: Acute Additional Plan # COVID 19 pneumonia - positive test 03/28/2020, isolation precautions - Completed remdesivir 04/05-04/09, on Dexamethasone 04/06- for 10 day course which is also completed, also received convalescent plasma x2 04/06 and 04/08. - Completed course of empiric antibiotics, ceftriaxone and azithromycin - Lovenox 40 mg b.i.d. for COVID-19 - Tylenol for fever - nebulizer: Atrovent and albuterol - intubated 04/17- for respiratory failure, CMV mode ventilation - sedation: Versed, fentanyl - paralytic: nimbex, unable to wean due to dyssynchrony - inflammatory markers Q 48 hours, they are elevated # septic shock - prn Levophed to keep map greater than 60 #YURIDIA -likely secondary to ATN/shock as he needed levophed -Cr improving, down to 1.4 from 2.1 #Nutrition - tube feeds started, pt was on PPN # other chronic conditions - Hyperlipidemia: Pravastatin - GERD: home prevacid, IV protonix while intubated - hypothyroidism: continue Synthroid 100mcg - hypertension: holding olmesartan while sedated and hypotensive Diet: Tube feeds DVT prophylaxis: Lovenox 40 mg b.i.d. GI prophylaxis: Protonix Code status: Full code Disposition: ICU Subjective Date/time seen: 04/19/20 15:58 Patient examined. Intubated, sedated, paralyzed. Discussed with centerless grinder. Unable to wean off Nimbex drip because of dyssynchrony with ventilator. YURIDIA improving. Not needing Levophed. Review of Systems Review of Systems: ROS unobtainable: Yes unobtainable due to endotracheal tube Exam Narrative: Exam Narrative: - GENERAL: ill-appearing male intubated sedated - HENT: ET tube in place - LUNGS: diminished lung sounds on ventilator - CARDIOVASCULAR: Regular rate and rhythm. No murmur. No JVD. - ABDOMEN: hypoactive bowel sounds - EXTREMITIES: No edema. Peripheral pulses 2+. Midline right upper extremity - NEUROLOGIC: unable to evaluate intubated sedated - PSYCHIATRIC: unable to evaluate intubated sedated Objective Data Vital Signs Vital Signs: Vital Signs - 24 hr 04/18/20 16:00 04/18/20 16:47 04/18/20 16:48 Temperature 37.4 C Pulse Rate 84 84 83 Respiratory Rate 26 H 26 H 26 H Blood Pressure 97/66 L Pulse Oximetry 99 04/18/20 16:49 04/18/20 17:07 04/18/20 17:54 Temperature Pulse Rate 83 86 88 Respiratory Rate 26 H 26 H Blood Pressure 97/66 L Pulse Oximetry 100 04/18/20 17:56 04/18/20 17:57 04/18/20 18:00 Temperature 37.7 C H Pulse Rate 94 93 88 Respiratory Rate 26 H 26 H 26 H Blood Pressure 103/79 110/83 Pulse Oximetry 100 04/18/20 19:47 04/18/20 19:51 04/18/20 19:54 Temperature 37.9 C H Pulse Rate 92 94 93 Respiratory Rate 26 H 26 H 26 H Blood Pressure 113/84 Pulse Oximetry 100 100 04/18/20 20:00 04/18/20 20:09 04/18/20 20:30 Temperature 38.3 C H Pulse Rate 93 93 97 Respiratory Rate 26 H 26 H Blood Pressure 1
[2020-04-19 19:48] LABS: Glucose Point of Care 142 (65-105)
[2020-04-20] VITALS (44 sets, daily range): BP systolic 90–122; BP diastolic 60–85; PULSE 76–104; RESP 24–90; TEMP 37.2–38.7; O2SAT 91–99
[2020-04-20 00:07] LABS: Glucose Point of Care 91 (65-105)
[2020-04-20] MEDS: FENTANYL 2,500MCG/NS250ML(*CRX 2,500 MCG/250 ML BAG 20 MCG IV CONT ×2 (00:39→14:13)
[2020-04-20] MEDS: IPRATROPIUM BR 0.02% INH SOLN 0.5 MG/2.5 ML VIAL INHALATION ×4 (02:41→20:56)
[2020-04-20] MEDS: ALBUTEROL SULFATE NEB 2.5 MG/0.5 ML INH INHALATION ×4 (02:42→20:56)
[2020-04-20] MEDS: LEVOTHYROXINE SODIUM INJ 100 MCG/5 ML VIAL 50 MCG IV PUSH (05:20)
[2020-04-20] MEDS: CENTRAL LINE FLUSH 10 ML IV PUSH ×3 (05:20→19:39)
[2020-04-20 05:47] LABS: Alveolar/Arterial O2 Gradient 299.5 mmHg; Base Excess ABG 5.6 mEq/l (+/-2.0); Carboxyhemoglobin 0.3 % THb (0-2.0); Fractional Inspired Oxygen 60 %; HCO3 ABG 30.6 mEq/l (22.0-26.0); Methemoglobin ABG 0.1 %THb (0-1.5); Oxygen Saturation ABG 95.7 % (95.0-100.0); Oxyhemoglobin 94.2 % THb (90.0-100.0); PCO2 ABG 46.6 mmHg (35.0-45.0); PO2 FiO2 Ratio Arterial Blood 1.28 %; Reduced Hemoglobin 5.4 %THb (0-5.0); Total Hemoglobin 10.5 g/dL (12.0-18.0); pH ABG 7.435 (7.350-7.450)
[2020-04-20 05:49] LABS: Device VENTILATOR; Site Drawn LEFT BRACHIAL
[2020-04-20 05:50] LABS: Arterial Blood Gas PEEP 12 cmH2O; Arterial Blood Gas Tidal Volume 460 ml; Arterial Blood Gas Vent Mode ASSIST CONTROL; Arterial Blood Gas Ventilator rate 24 /MIN
[2020-04-20 05:57] LABS: Hematocrit 27.7 % (42.0-52.0); Hemoglobin 8.7 g/dL (14.0-18.0); Mean Corpuscular HGB Conc 31.4 g/dl (32-36); Mean Corpuscular Hemoglobin 31.8 pg (26-34); Mean Corpuscular Volume 101.1 fl (80-100); Mean Platelet Volume 11.8 fl (7.4-10.4); Platelet Count Result 238 k/mm3 (150-375); Red Blood Count 2.74 M/mm3 (4.6-6.20); Red Cell Distribution Width 12.8 % (11.5-14.5); White Blood Count 7.8 K/mm3 (4.5-10.0)
[2020-04-20 06:30] LABS: Alanine Aminotransferase 60 U/L (4-50); Albumin Level 2.4 g/dL (3.5-5.1); Alkaline Phosphatase 252 U/L (38-126); Anion Gap 1 mmol/L (8-16); Aspartate Amino Transferase 64 U/L (17-59); Bilirubin,Total 0.4 mg/dL (0.2-1.3); Blood Urea Nitrogen 28 mg/dL (9-20); Calcium 6.5 mg/dL (8.4-10.2); Carbon Dioxide 35 mmol/L (22-30); Chloride 87 mmol/L (98-107); Estimated CRCL calculation 80 ml/min; Estimated Glomerular Filt Rate > 60; Glucose 416 mg/dL (75-110); Magnesium 2.2 mg/dL (1.6-2.3); Potassium 3.2 mmol/L (3.4-5.0); Sodium 123 mmol/L (137-145)
[2020-04-20] MEDS: PANTOPRAZOLE SODIUM IV 40 MG VIAL IV PUSH (08:22)
[2020-04-20] MEDS: ENOXAPARIN 40 MG/0.4 ML SYRINGE SUB-Q ×2 (08:22→19:39)
[2020-04-20 09:16] LABS: Glucose Point of Care 87 (65-105)
--- NOTE | 2020-04-20 12:01 | PCDIET ---
Nutrition Follow-Up Complete: Inadequate oral intake related to pneumonia as evidenced by NPO status, weight loss prior to admission. Patient to meet estimated nutritional needs. Goal:Progressing to goal. Continue goal. Pt current nutrition is Vital 1.2 at 40ml/hr Nutrition recommendation: Increase to goal of 60ml/hr today Last recorded weight is 90.2kg, steady from 90kg yesterday Bowel Motility: BM Labs Reviewed:Glucose listed at 416, per nursing not correct and re did and was in 100's. No listed glucose on chart yet. Error in picc line draw. PO4 normal, Protein 6.0, Albumin 2.4, K 3.2, Na 123, BUN 28, AST/ALT 64/60 Meds Noted:Albuterol, Fentanyl, Lovenox, Protonix, Synthroid, Versed, KCL, Nimbex Additional Notes: Pt tolerating 40ml/hr Vital 1.2 over 22hrs with 10 ml residual. Plans to increase to goal of 60ml/hr today. At goal, Vital 1.2 over 22hrs will provide 1584kcals, 99g protein, and 1070ml of free water, meeting 100% of needs. 30ml water flush q 4 hrs appropriate at this time due to other fluids. Per MD goal is to titrate Nimbex off today. Following daily in ICU rounds. Assessing/reassessing T/F.
[2020-04-20 12:17] LABS: Glucose Point of Care 85 (65-105)
--- NOTE | 2020-04-20 12:52 | WPDINTPN ---
Progress Note: A&P Assessment and Plan (1) Acute respiratory failure with hypoxemia: Code(s): J96.01 - Acute respiratory failure with hypoxia Status: Acute Assessment and Plan: patient with COVID-19 19 pneumonia, - Patient was intubated on on 04/17/2020 since he was was hypoxic, tachypneic with respiratory rates in the 35-50, impending respiratory failure. - CMV mode of ventilation and ABGs improved significantly. will wean peep to 10, FiO2 to 50% - Patient is on the old bird 8400 ventilator, there is a discrepancy with inhaled and exhaled tidal volume numbers. - continue bronchodilators - on fentanyl and Versed infusion for sedation. - Nimbex for neuromuscular blockade, will try to wean Nimbex to off again today . Tried weaning him off Nimbex yesterday on 04/19/2020, Patient was dyssynchronous and desaturated to had to be restarted. (2) Pneumonia due to COVID-19 virus: Code(s): U07.1 - COVID-19; J12.89 - Other viral pneumonia Status: Acute Assessment and Plan: patient admitted on 04/04/2020 with increasing shortness of breath, fevers, chills and cough. SARS-CoV-2 PCR PCR was positive on 03/28/2020 - chest x-ray shows - Diffuse lung disease with slight improvement, consistent with pneumonia and/or pulmonary edema and/or acute respiratory distress syndrome (ARDS). - completed course of azithromycin and ceftriaxone which was started on 04/05/2020. - Completed course of Remdesivir ( started on 04/05/2020) - completed dexamethasone (started on 04/06/2020) - received a unit of convalescent COVID-19 plasma on 04/06/2020 And 04/08/2020 - continue airborne, droplet, contact isolation and precautions - inflammatory markers are elevated, will continue to trend (3) Acute renal failure: Qualifiers: Acute renal failure type: unspecified Qualified Code(s): N17.9 - Acute kidney failure, unspecified Code(s): N17.9 - Acute kidney failure, unspecified Status: Resolved Assessment and Plan: creatinine increased to 2.1 ( from 1.1 on 04/17/2020) could be related to hypoxia, Hypovolemia, - patient was given a small fluid bolus, creatinine down to 1.0today on 04/19/2020, continue monitor urine output, renal function electrolytes - may require maintenance IV fluids - Potassium was repleted (4) Chronic GERD: Code(s): K21.9 - Gastro-esophageal reflux disease without esophagitis Status: Chronic Assessment and Plan: continue IV PPI (5) Adult hypothyroidism: Code(s): E03.9 - Hypothyroidism, unspecified Status: Chronic Assessment and Plan: continue levothyroxine (6) Benign essential hypertension: Code(s): I10 - Essential (primary) hypertension Status: Chronic Assessment and Plan: blood pressure is within normal limits, will hold antihypertensives at this time (7) DVT prophylaxis: Code(s): Z29.9 - Encounter for prophylactic measures, unspecified Status: Acute Assessment and Plan: high D-dimer level. patient is on intermediate does of Lovenox at 40 mg Sub-cu Q12H (8) Dietary counseling and surveillance: Code(s): Z71.3 - Dietary counseling and surveillance Status: Acute Assessment and Plan: will start trickle tube feeds patient has been choking on his food question possible secondary to coughing and or some history of narrowing of the esophagus see stated he is to have vomiting in the past which improved with a pill that the physician gave him. He is unable provide any more history. Per his father, patient was at [facility] about 8-10 years ago, he use to have bouts of cough being and was unable to keep his food down and had a lot of vomiting then. He was placed on some medication which helped him with that. He was taken of that pill, does not remember when, after his symptoms improved. - was started on PPN on 04/05/2020 and staff was unab
[2020-04-20 18:11] LABS: Glucose Point of Care 108 (65-105)
--- NOTE | 2020-04-20 19:28 | PM.IMPN ---
Progress Note: A&P Assessment and Plan (1) Pneumonia due to COVID-19 virus: Code(s): U07.1 - COVID-19; J12.89 - Other viral pneumonia Status: Acute (2) Acute respiratory failure with hypoxemia: Code(s): J96.01 - Acute respiratory failure with hypoxia Status: Acute (3) Acute renal failure: Qualifiers: Acute renal failure type: unspecified Qualified Code(s): N17.9 - Acute kidney failure, unspecified Code(s): N17.9 - Acute kidney failure, unspecified Status: Resolved Assessment and Plan: worsening renal function, may be pre-renal, IVF bolus given today (4) Benign essential hypertension: Code(s): I10 - Essential (primary) hypertension Status: Chronic Assessment and Plan: BP stable, watching (5) Adult hypothyroidism: Code(s): E03.9 - Hypothyroidism, unspecified Status: Chronic (6) Hyperlipidemia: Qualifiers: Hyperlipidemia type: unspecified Qualified Code(s): E78.5 - Hyperlipidemia, unspecified Code(s): E78.5 - Hyperlipidemia, unspecified Status: Chronic (7) Dietary counseling and surveillance: Code(s): Z71.3 - Dietary counseling and surveillance Status: Acute Assessment and Plan: starting tube feeds Additional Plan # COVID 19 pneumonia - positive test 03/28/2020, isolation precautions - Completed remdesivir 04/05-04/09, on Dexamethasone 04/06- for 10 day course which is also completed, also received convalescent plasma x2 04/06 and 04/08. - Completed course of empiric antibiotics, ceftriaxone and azithromycin - Lovenox 40 mg b.i.d. for COVID-19 - Tylenol for fever - nebulizer: Atrovent and albuterol - intubated 04/17- for respiratory failure, CMV mode ventilation - sedation: Versed, fentanyl - paralytic: nimbex, unable to wean due to dyssynchrony - inflammatory markers Q 48 hours, they are elevated # septic shock - prn Levophed to keep map greater than 60 #YURIDIA -likely secondary to ATN/shock as he needed levophed -Cr improving, down to 1.0 #Nutrition - tube feeds started, pt was on PPN # other chronic conditions - Hyperlipidemia: Pravastatin - GERD: home prevacid, IV protonix while intubated - hypothyroidism: continue Synthroid 100mcg - hypertension: holding olmesartan while sedated and hypotensive Diet: Tube feeds DVT prophylaxis: Lovenox 40 mg b.i.d. GI prophylaxis: Protonix Code status: Full code Disposition: ICU Subjective Date/time seen: 04/20/20 19:28 Patient examined. Unable to be weaned off of the Nimbex drip. Creatinine improving. Still having fevers T-max 101.7?. Patient is stable. Discussed with press setup operator. Review of Systems Review of Systems: ROS unobtainable: Yes unobtainable due to endotracheal tube Exam Narrative: Exam Narrative: - GENERAL: ill-appearing male intubated sedated - HENT: ET tube in place - LUNGS: diminished lung sounds on ventilator - CARDIOVASCULAR: Regular rate and rhythm. No murmur. No JVD. - ABDOMEN: hypoactive bowel sounds - EXTREMITIES: No edema. Peripheral pulses 2+. Midline right upper extremity - NEUROLOGIC: unable to evaluate intubated sedated - PSYCHIATRIC: unable to evaluate intubated sedated Objective Data Vital Signs Vital Signs: Vital Signs - 24 hr 04/19/20 20:00 04/19/20 20:52 04/19/20 21:05 Temperature 37.8 C H Pulse Rate 87 88 88 Respiratory Rate 24 H 24 H 24 H Blood Pressure 108/80 Pulse Oximetry 97 96 04/19/20 22:00 04/19/20 23:54 04/20/20 00:00 Temperature 38.3 C H 38.7 C H Pulse Rate 89 89 90 Respiratory Rate 24 H 24 H Blood Pressure 118/77 110/79 Pulse Oximetry 93 92 91 04/20/20 00:08 04/20/20 00:38 04/20/20 00:39 Temperature 38.7 C H 38.1 C H Pulse Rate 90 Respiratory Rate 24 H Blood Pressure Pulse Oximetry 04/20/20 02:00 04/20/20 02:42 04/20/20 02:56 Temperature 38.1 C H Pulse Rate 83 85 84 Respiratory Rate 24 H 24 H 24 H Blood Press
[2020-04-21] VITALS (37 sets, daily range): BP systolic 95–162; BP diastolic 62–100; PULSE 75–99; RESP 24–25; TEMP 37.4–39; O2SAT 89–98
--- NOTE | 2020-04-21 | ECHO_ITS ---
Patient Info Name: Avtar Ambrocio Age: 50 years : 1970 Gender: Male Ht: 69 in Wt: 199 lbs BSA: 2.12 m2 HR: 83 bpm BP: 104 / 71 mmHg Technical Quality: Poor Exam Date: 04/21/2020 1:57 PM Exam Location: [facility] Patient Status: Inpatient Admit Date: 04/04/2020 Staff Ordering Physician: Mily Dave MD Print Graphic Designer: Marcia Escamilla RDCS Attending Provider: Rubio Guillen MD Exam Type: CA echo dop color flow w con Study Info Complete two-dimensional, color flow and Doppler transthoracic echocardiogram is performed with contrast to opacify the left ventricle and to improve the deliniation of the left ventricle endocardial borders. Contrast/Agitated Saline Contrast/Ag. Saline: Definity Amount: 4.00 ml Reason for Poor Study: patient body habitus Summary 1. Suboptimal image quality; echo contrast was used. Normal LV size, mild LVH; low normal LV systolic function, ejection fraction about 55%; normal diastolic function. No significant valvular abnormality on the echo and Doppler. Trivial TR, RVSP 32 mmHg. Left Ventricle Left ventricular chamber dimension is normal. Left ventricular systolic function is normal, estimated at 50-55%. There is mildly increased left ventricular wall thickness. The left ventricular diastolic function is normal. Right Ventricle Right ventricular chamber dimension is normal. Right ventricular systolic function is reduced. Left Atria Left atrial chamber dimension is normal. Right Atria Right atrial chamber dimension is normal. Aortic Valve The aortic valve is normal. There is no aortic valve stenosis. Pulmonic Valve The pulmonic valve is not well visualized. There is trace pulmonic regurgitation. Mitral Valve The mitral valve has normal leaflets. There is no mitral valve regurgitation. Tricuspid Valve The tricuspid valve leaflets are normal. There is trace tricuspid valve regurgitation. Pericardium/Pleural The pericardium appears normal. Inferior Vena Cava Dilated inferior vena cava with <50% collapse upon inspiration consistent with elevated right atrial pressure, 10 mmHg. Left Ventricular Outflow Tract Name Value Normal LVOT 2D LVOT Diameter 1.97 cm LVOT Doppler LVOT Peak Velocity 101.98 cm/s LVOT Peak Gradient 4 mmHg LVOT Mean Gradient 2 mmHg LVOT VTI 17.82 cm LVOT VTI/AV VTI Ratio 0.90 LVOT Stroke Volume 54.33 ml LVOT CO 3.75 l/min LVOT CI 1.77 L/min/m2 Pulmonic Valve Name Value Normal PV Doppler PV Peak Velocity 68.97 cm/s PV Peak Gradient 2 mmHg Mitral Valve
[2020-04-21] MEDS: FENTANYL 2,500MCG/NS250ML(*CRX 2,500 MCG/250 ML BAG 20 MCG IV CONT ×2 (00:58→12:39)
[2020-04-21 01:07] LABS: Glucose Point of Care 133 (65-105)
[2020-04-21] MEDS: IPRATROPIUM BR 0.02% INH SOLN 0.5 MG/2.5 ML VIAL INHALATION ×4 (03:07→20:14)
[2020-04-21] MEDS: ALBUTEROL SULFATE NEB 2.5 MG/0.5 ML INH INHALATION ×4 (03:07→20:14)
[2020-04-21 07:27] LABS: Alveolar/Arterial O2 Gradient 384.5 mmHg; Base Excess ABG 5.6 mEq/l (+/-2.0); Carboxyhemoglobin 0.1 % THb (0-2.0); Fractional Inspired Oxygen 70 %; HCO3 ABG 31.2 mEq/l (22.0-26.0); Methemoglobin ABG 0.3 %THb (0-1.5); Oxygen Content ABG 17.1 %vol (16.0-22.0); Oxygen Saturation ABG 91.7 % (95.0-100.0); Oxyhemoglobin 90.6 % THb (90.0-100.0); PCO2 ABG 49.4 mmHg (35.0-45.0); PO2 ABG 61.5 mmHg (80.0-100.0); PO2 FiO2 Ratio Arterial Blood 0.88 %; Total Hemoglobin 13.4 g/dL (12.0-18.0); pH ABG 7.418 (7.350-7.450)
[2020-04-21 07:28] LABS: Arterial Blood Gas Ventilator rate 24 /MIN; Device VENTILATOR; Modified Allen's Test Pass; Site Drawn RIGHT RADIAL
[2020-04-21 07:29] LABS: Arterial Blood Gas PEEP 10 cmH2O; Arterial Blood Gas Tidal Volume 460 ml; Arterial Blood Gas Vent Mode CMV
[2020-04-21] MEDS: PANTOPRAZOLE SODIUM IV 40 MG VIAL IV PUSH (08:42)
[2020-04-21] MEDS: ENOXAPARIN 40 MG/0.4 ML SYRINGE SUB-Q ×2 (08:43→20:22)
[2020-04-21] MEDS: LEVOTHYROXINE SODIUM INJ 100 MCG/5 ML VIAL 50 MCG IV PUSH (08:43)
[2020-04-21] MEDS: CENTRAL LINE FLUSH 10 ML IV PUSH ×3 (08:44→20:21)
[2020-04-21 08:55] LABS: Lactate Dehydrogenase 1047 U/L (313-618); Phosphorus 2.4 mg/dL (2.5-4.5)
[2020-04-21 09:03] LABS: D Dimer 3.58 ug/mL (<0.48)
[2020-04-21 09:26] LABS: CRP 29.3 mg/dL (<1.0)
[2020-04-21] MEDS: FUROSEMIDE INJ 40 MG/4 ML VIAL IV PUSH (10:23)
[2020-04-21] MEDS: POTASSIUM PHOS,M-BASIC-D-BASIC 20 MMOL in SODIUM CHLORIDE 0.9% IV 250 ML 62.5 MMOL IVPB (10:57)
[2020-04-21 11:53] LABS: Glucose Point of Care 114 (65-105)
--- NOTE | 2020-04-21 12:13 | WPDINTPN ---
Progress Note: A&P Assessment and Plan (1) Acute respiratory failure with hypoxemia: Code(s): J96.01 - Acute respiratory failure with hypoxia Status: Acute Assessment and Plan: patient with COVID-19 19 pneumonia, - Patient was intubated on on 04/17/2020 since he was was hypoxic, tachypneic with respiratory rates in the 35-50, impending respiratory failure. - CMV mode of ventilation and ABGs improved significantly. Wean FiO2 and PEEP if tolerated. - Patient is on the old bird 8400 ventilator, there is a discrepancy with inhaled and exhaled tidal volume numbers. - continue bronchodilators - on fentanyl and Versed infusion for sedation. - Nimbex for neuromuscular blockade for significant asynchrony with ventilator. Will try to wean him off from Nimbex today. Will give a dose of Lasix today. Strict intake output record and daily weight. Continue to monitor renal parameters and electrolytes. Echocardiogram has been ordered. (2) Pneumonia due to COVID-19 virus: Code(s): U07.1 - COVID-19; J12.89 - Other viral pneumonia Status: Acute Assessment and Plan: patient admitted on 04/04/2020 with increasing shortness of breath, fevers, chills and cough. SARS-CoV-2 PCR PCR was positive on 03/28/2020 - chest x-ray shows - Diffuse lung disease with slight improvement, consistent with pneumonia and/or pulmonary edema and/or acute respiratory distress syndrome (ARDS). - completed course of azithromycin and ceftriaxone which was started on 04/05/2020. Will check procalcitonin level. Low threshold for initiation of antibiotics if further clinical data suggest evidence of bacterial secondary infection. - Completed course of Remdesivir ( started on 04/05/2020) - completed dexamethasone (started on 04/06/2020). resuming dexamethasone may not give him any additional benefit because he is almost 25 days past his actual diagnosis of COVID pneumonia. - received a unit of convalescent COVID-19 plasma on 04/06/2020 And 04/08/2020 - continue airborne, droplet, contact isolation and precautions - inflammatory markers are elevated, will continue to trend (3) Acute renal failure: Qualifiers: Acute renal failure type: unspecified Qualified Code(s): N17.9 - Acute kidney failure, unspecified Code(s): N17.9 - Acute kidney failure, unspecified Status: Resolved Assessment and Plan: creatinine increased to 2.1 ( from 1.1 on 04/17/2020) could be related to hypoxia, Hypovolemia, - New parameters improved. Continue to monitor renal functions and electrolytes. - may require maintenance IV fluids (4) Chronic GERD: Code(s): K21.9 - Gastro-esophageal reflux disease without esophagitis Status: Chronic Assessment and Plan: continue IV PPI (5) Adult hypothyroidism: Code(s): E03.9 - Hypothyroidism, unspecified Status: Chronic Assessment and Plan: continue levothyroxine IV with 1/2 of regular dose (6) Benign essential hypertension: Code(s): I10 - Essential (primary) hypertension Status: Chronic Assessment and Plan: blood pressure is within normal limits, will hold antihypertensives at this time. He normally takes olmesartan. (7) DVT prophylaxis: Code(s): Z29.9 - Encounter for prophylactic measures, unspecified Status: Acute Assessment and Plan: high D-dimer level. patient is on intermediate does of Lovenox at 40 mg Sub-cu Q12H (8) Dietary counseling and surveillance: Code(s): Z71.3 - Dietary counseling and surveillance Status: Acute Assessment and Plan: Continue tube feed with 20 cc/hour. (9) Anxiety: Code(s): F41.9 - Anxiety disorder, unspecified Status: Acute Assessment and Plan: currently sedated intubated Additional Plan DVT prophylaxis with subcu Lovenox GI prophylaxis with IV pantoprazole code status: Full code c
[2020-04-21] MEDS: PERFLUTREN LIPID MICROSPHERES 1.5 ML VIAL DILUTED TO 10 ML TOTAL VOLUME (14:36)
--- NOTE | 2020-04-21 15:36 | PM.IMPN ---
Progress Note: A&P Assessment and Plan (1) Pneumonia due to COVID-19 virus: Code(s): U07.1 - COVID-19; J12.89 - Other viral pneumonia Status: Acute (2) Acute respiratory failure with hypoxemia: Code(s): J96.01 - Acute respiratory failure with hypoxia Status: Acute (3) Acute renal failure: Qualifiers: Acute renal failure type: unspecified Qualified Code(s): N17.9 - Acute kidney failure, unspecified Code(s): N17.9 - Acute kidney failure, unspecified Status: Resolved Assessment and Plan: worsening renal function, may be pre-renal, IVF bolus given today (4) Benign essential hypertension: Code(s): I10 - Essential (primary) hypertension Status: Chronic Assessment and Plan: BP stable, watching (5) Adult hypothyroidism: Code(s): E03.9 - Hypothyroidism, unspecified Status: Chronic (6) Hyperlipidemia: Qualifiers: Hyperlipidemia type: unspecified Qualified Code(s): E78.5 - Hyperlipidemia, unspecified Code(s): E78.5 - Hyperlipidemia, unspecified Status: Chronic (7) Dietary counseling and surveillance: Code(s): Z71.3 - Dietary counseling and surveillance Status: Acute Assessment and Plan: starting tube feeds Additional Plan # COVID 19 pneumonia # acute hypoxic respiratory failure - positive test 03/28/2020, isolation precautions - Completed remdesivir 04/05-04/09, on Dexamethasone 04/06- for 10 day course which is also completed, also received convalescent plasma x2 04/06 and 04/08. - Completed course of empiric antibiotics, ceftriaxone and azithromycin - Lovenox 40 mg b.i.d. for COVID-19 - Tylenol for fever - nebulizer: Atrovent and albuterol - intubated 04/17- for respiratory failure, CMV mode ventilation - sedation: Versed, fentanyl, adding propofol - paralytic: with propofol hopefully we are able to wean off Nimbex - inflammatory markers Q 48 hours, they are elevated # septic shock, resolved - prn Levophed to keep map greater than 60 #YURIDIA, resolved -likely secondary to ATN/shock as he needed levophed -Cr improving, down to 1.0 - Lasix given today chest x-ray showed possible pulmonary edema, improved urine output with Lasix #Nutrition - tolerating tube feeds # other chronic conditions - Hyperlipidemia: Pravastatin - GERD: home prevacid, IV protonix while intubated - hypothyroidism: continue Synthroid 100mcg - hypertension: holding olmesartan while sedated and hypotensive Diet: Tube feeds DVT prophylaxis: Lovenox 40 mg b.i.d. GI prophylaxis: Protonix Code status: Full code Disposition: ICU Subjective Date/time seen: 04/21/20 15:36 patient examined. Discussed with dental assistant medical assistant. having difficulty weaning off Nimbex with ventilator dyssynchrony leading to hypoxia. starting propofol. patient given Lasix With good urine output. He is tolerating his tube feeds. Review of Systems Review of Systems: ROS unobtainable: Yes unobtainable due to endotracheal tube Exam Narrative: Exam Narrative: - GENERAL: ill-appearing male intubated sedated paralyzed - HENT: ETT in place, a G-tube in place. dry blood in nares - LUNGS: diminished lung sounds on ventilator - CARDIOVASCULAR: Regular rate and rhythm. No murmur. No JVD. - ABDOMEN: hypoactive bowel sounds - : Corley in place, clearly yellow urine - EXTREMITIES: No edema. Peripheral pulses 2+. Midline right upper extremity - NEUROLOGIC: unable to evaluate intubated sedated paralyzed - PSYCHIATRIC: unable to evaluate intubated sedated purulence Objective Data Vital Signs Vital Signs: Vital Signs - 24 hr 04/20/20 16:00 04/20/20 18:00 04/20/20 18:37 Temperature 37.9 C H 37.4 C Pulse Rate 82 78 78 Respiratory Rate 24 H 24 H 24 H Blood Pressure 93/66 L 93/66 L Pulse Oximetry 95 97 04/20/20 19:43 04/20/20 19:45 04/20/20 20:00 Temperature 37.7 C H Pulse Rate 80 Respiratory Rate Blood Pressure Pul
[2020-04-21] MEDS: PROPOFOL IV EMULSION 100 ML 5.42 MG IV CONT (15:37)
[2020-04-21] MEDS: PROPOFOL IV EMULSION 100 ML 21.7 MG IV CONT ×2 (18:57→23:35)
[2020-04-21 20:37] LABS: Glucose Point of Care 106 (65-105)
[2020-04-22] VITALS (41 sets, daily range): BP systolic 92–122; BP diastolic 61–78; PULSE 72–96; RESP 20–28; TEMP 36.6–38.8; O2SAT 88–98
[2020-04-22 01:39] LABS: Glucose Point of Care 120 (65-105)
[2020-04-22] MEDS: FENTANYL 2,500MCG/NS250ML(*CRX 2,500 MCG/250 ML BAG 20 MCG IV CONT ×2 (01:56→14:55)
[2020-04-22] MEDS: IPRATROPIUM BR 0.02% INH SOLN 0.5 MG/2.5 ML VIAL INHALATION ×4 (03:50→20:04)
[2020-04-22] MEDS: ALBUTEROL SULFATE NEB 2.5 MG/0.5 ML INH INHALATION ×4 (03:50→20:04)
[2020-04-22] MEDS: PROPOFOL IV EMULSION 100 ML 21.7 MG IV CONT ×4 (03:57→16:22)
[2020-04-22 04:08] LABS: Alveolar/Arterial O2 Gradient 599.7 mmHg; Base Excess ABG 5.7 mEq/l (+/-2.0); Carboxyhemoglobin 0.3 % THb (0-2.0); Fractional Inspired Oxygen 100 %; Methemoglobin ABG 0.2 %THb (0-1.5); Oxygen Content ABG 16.7 %vol (16.0-22.0); Oxygen Saturation ABG 90.2 % (95.0-100.0); Oxyhemoglobin 89.9 % THb (90.0-100.0); PCO2 ABG 53.8 mmHg (35.0-45.0); PO2 ABG 59.5 mmHg (80.0-100.0); Reduced Hemoglobin 9.6 %THb (0-5.0); Total Hemoglobin 13.2 g/dL (12.0-18.0); pH ABG 7.392 (7.350-7.450)
[2020-04-22 04:10] LABS: Device VENTILATOR; Modified Allen's Test Pass; Site Drawn RIGHT RADIAL
[2020-04-22 04:11] LABS: Arterial Blood Gas PEEP 10 cmH2O; Arterial Blood Gas Tidal Volume 460 ml; Arterial Blood Gas Vent Mode CMV; Arterial Blood Gas Ventilator rate 24 /MIN
[2020-04-22] MEDS: LEVOTHYROXINE SODIUM INJ 100 MCG/5 ML VIAL 50 MCG IV PUSH (06:36)
[2020-04-22] MEDS: CENTRAL LINE FLUSH 10 ML IV PUSH ×3 (06:39→21:55)
[2020-04-22 06:49] LABS: Glucose Point of Care 98 (65-105)
[2020-04-22] MEDS: ENOXAPARIN 40 MG/0.4 ML SYRINGE SUB-Q ×2 (08:01→21:55)
[2020-04-22] MEDS: PANTOPRAZOLE SODIUM IV 40 MG VIAL IV PUSH (08:02)
[2020-04-22 11:40] LABS: Hemoglobin 8.5 g/dL (14.0-18.0); Mean Corpuscular HGB Conc 32.7 g/dl (32-36); Mean Corpuscular Hemoglobin 32.4 pg (26-34); Mean Corpuscular Volume 99.2 fl (80-100); Mean Platelet Volume 11.3 fl (7.4-10.4); Platelet Count Result 228 k/mm3 (150-375); Red Blood Count 2.62 M/mm3 (4.6-6.20); Red Cell Distribution Width 12.9 % (11.5-14.5)
[2020-04-22 11:52] LABS: Anion Gap 3 mmol/L (8-16); Blood Urea Nitrogen 21 mg/dL (9-20); Calcium 6.6 mg/dL (8.4-10.2); Carbon Dioxide 35 mmol/L (22-30); Chloride 93 mmol/L (98-107); Estimated CRCL calculation 98 ml/min; Estimated Glomerular Filt Rate > 60; Glucose 203 mg/dL (75-110); Magnesium 1.9 mg/dL (1.6-2.3); Potassium 3.3 mmol/L (3.4-5.0); Sodium 131 mmol/L (137-145)
[2020-04-22 12:08] LABS: Glucose Point of Care 177 (65-105)
--- NOTE | 2020-04-22 13:14 | WPDINTPN ---
Progress Note: A&P Assessment and Plan (1) Pneumonia due to COVID-19 virus: Code(s): U07.1 - COVID-19; J12.89 - Other viral pneumonia Status: Acute Assessment and Plan: tested positive 03/28/2020 intubated 04/17/2020 completed remdesivir (started 04/05/2020), dexamethasome (started 04/06/2020) and convalescent plasma x2 04/06 and 04/08 Complete ceftriaxone and azithromycin cont versed, fentanyl and propofol off nimbex (2) Acute respiratory failure with hypoxemia: Code(s): J96.01 - Acute respiratory failure with hypoxia Status: Acute Assessment and Plan: refer to COVID (3) Acute renal failure: Qualifiers: Acute renal failure type: unspecified Qualified Code(s): N17.9 - Acute kidney failure, unspecified Code(s): N17.9 - Acute kidney failure, unspecified Status: Resolved Assessment and Plan: possible secondary to ATN/Shock has improved with the use of levophed BUN improved , CR WNL Yesterday CXR indicated pulmonary edema lasix given (4) Benign essential hypertension: Code(s): I10 - Essential (primary) hypertension Status: Chronic Assessment and Plan: BP stable, 101/66 levophed dc'ed 04/20/2020 Hold olmesartan (5) Adult hypothyroidism: Code(s): E03.9 - Hypothyroidism, unspecified Status: Chronic Assessment and Plan: Continue levothyroxine IV with 1/2 dose, 50 mcg (6) Hyperlipidemia: Qualifiers: Hyperlipidemia type: unspecified Qualified Code(s): E78.5 - Hyperlipidemia, unspecified Code(s): E78.5 - Hyperlipidemia, unspecified Status: Chronic Assessment and Plan: Pravastatin on hold (7) Dietary counseling and surveillance: Code(s): Z71.3 - Dietary counseling and surveillance Status: Acute Assessment and Plan: contniue tube feeds Additional Plan potassium 3.3 potassium 40meq given Diet: Tube feeds DVT prophylaxis: Lovenox 40 mg b.i.d. GI prophylaxis: Protonix Code status: Full code Disposition: ICU Subjective Date/time seen: 04/22/20 13:14 Patient intubated and sedated. On a PEEP of 10 with FiO2 of 100% Fentayl 200 and Versed 6 propofol 40 mcg. nimbex off Interval history: Reason for consult: COVID-19 pneumonia, acute hypoxic respiratory failure, acute kidney injury, elevated liver enzymes - 04/06/2020 received convalescent plasma - 04/08/2020 received convalescent plasma - 04/17/2020 intubated Review of Systems Review of Systems: All systems reviewed & are unremarkable except as noted in HPI and below ROS unobtainable: Yes unobtainable due to endotracheal tube Exam Narrative: Exam Narrative: - GENERAL: ill-appearing male intubated sedated - HENT: ETT in place, a G-tube in place. dry blood in nares - LUNGS: diminished lung sounds on ventilator - CARDIOVASCULAR: Regular rate and rhythm. No murmur. No JVD. - ABDOMEN: hypoactive bowel sounds - : Corley in place, clearly yellow urine - EXTREMITIES: No edema. Peripheral pulses 2+. Midline right upper extremity - NEUROLOGIC: unable to evaluate intubated sedated paralyzed - PSYCHIATRIC: unable to evaluate intubated sedated purulence Objective Data Vital Signs Vital Signs: Vital Signs - 24 hr 04/21/20 14:00 04/21/20 14:03 04/21/20 14:04 Temperature 100.5 F H Pulse Rate 85 86 86 Respiratory Rate 24 H 24 H Blood Pressure 103/71 Pulse Oximetry 97 96 04/21/20 15:33 04/21/20 15:37 04/21/20 15:44 Temperature 100.7 F H Pulse Rate 94 98 Respiratory Rate 24 H 24 H Blood Pressure 162/100 H Pulse Oximetry 93 89 L 04/21/20 16:00 04/21/20 16:46 04/21/20 17:49 Temperature 101.4 F H Pulse Rate 90 86 87 Respiratory Rate 24 H Blood Pressure 108/72 Pulse Oximetry 96 93 04/21/20 20:00 04/21/20 20:14 04/21/20 20:17 Temperature 102.0 F H Pulse Rate 91 95 95 Respiratory Rate 24 H 24 H Blood Pressure 112/72 Pul
--- NOTE | 2020-04-22 14:09 | PM.IMPN ---
Progress Note: A&P Assessment and Plan (1) Pneumonia due to COVID-19 virus: Code(s): U07.1 - COVID-19; J12.89 - Other viral pneumonia Status: Acute (2) Acute respiratory failure with hypoxemia: Code(s): J96.01 - Acute respiratory failure with hypoxia Status: Acute (3) Acute renal failure: Qualifiers: Acute renal failure type: unspecified Qualified Code(s): N17.9 - Acute kidney failure, unspecified Code(s): N17.9 - Acute kidney failure, unspecified Status: Resolved (4) Benign essential hypertension: Code(s): I10 - Essential (primary) hypertension Status: Chronic Assessment and Plan: BP stable, watching (5) Adult hypothyroidism: Code(s): E03.9 - Hypothyroidism, unspecified Status: Chronic (6) Hyperlipidemia: Qualifiers: Hyperlipidemia type: unspecified Qualified Code(s): E78.5 - Hyperlipidemia, unspecified Code(s): E78.5 - Hyperlipidemia, unspecified Status: Chronic (7) Dietary counseling and surveillance: Code(s): Z71.3 - Dietary counseling and surveillance Status: Acute Assessment and Plan: starting tube feeds Additional Plan # COVID 19 pneumonia # acute hypoxic respiratory failure - positive test 03/28/2020, isolation precautions - Completed remdesivir 04/05-04/09, on Dexamethasone 04/06- for 10 day course which is also completed, also received convalescent plasma x2 04/06 and 04/08. - Completed course of empiric antibiotics, ceftriaxone and azithromycin - Lovenox 40 mg b.i.d. for COVID-19 - Tylenol for fever - nebulizer: Atrovent and albuterol - intubated 04/17- for respiratory failure, CMV mode ventilation increased to 100% FiO2 and PEEP 10 on 04/22/2020 - sedation: Versed, fentanyl, up titrating propofol - stopped Nimbex - inflammatory markers Q 48 hours have been downtrending, ferritin unchanged # septic shock, resolved # hypokalemia after Lasix -potassium 3.3, replete with IV potassium #YURIDIA, resolved -likely secondary to ATN/shock as he needed levophed -Cr improving, down to 1.0 - Lasix given today chest x-ray showed possible pulmonary edema, improved urine output with Lasix #Nutrition - tolerating tube feeds # other chronic conditions - Hyperlipidemia: Pravastatin - GERD: home prevacid, IV protonix while intubated - hypothyroidism: continue Synthroid 100mcg - hypertension: holding olmesartan while sedated and hypotensive Diet: Tube feeds DVT prophylaxis: Lovenox 40 mg b.i.d. GI prophylaxis: Protonix Code status: Full code Disposition: ICU Subjective Date/time seen: 04/22/20 14:09 Patient examined. Patient weaned off Nimbex drip and started on propofol for sedation. He is tolerating his tube feeds. FiO2 up to 100% and PEEP 10. He is maxed on fentanyl and Versed, propofol being uptitrated. Stable. Review of Systems Review of Systems: ROS unobtainable: Yes unobtainable due to endotracheal tube Exam Narrative: Exam Narrative: - GENERAL: ill-appearing male intubated sedated - HENT: ETT in place, a OG-tube in place. dry blood in nares - LUNGS: diminished lung sounds on ventilator - CARDIOVASCULAR: Regular rate and rhythm. No murmur. No JVD. - ABDOMEN: hypoactive bowel sounds - : Corley in place, clearly yellow urine - EXTREMITIES: No edema. Peripheral pulses 2+. Midline right upper extremity - NEUROLOGIC: unable to evaluate intubated sedated paralyzed - PSYCHIATRIC: unable to evaluate intubated sedated purulence Objective Data Vital Signs Vital Signs: Vital Signs - 24 hr 04/21/20 15:33 04/21/20 15:37 04/21/20 15:44 Temperature 38.2 C H Pulse Rate 94 98 Respiratory Rate 24 H 24 H Blood Pressure 162/100 H Pulse Oximetry 93 89 L 04/21/20 16:00 04/21/20 16:46 04/21/20 17:49 Temperature 38.6 C H Pulse Rate 90 86 87 Respiratory Rate 24 H Blood Pressure 108/72 Pulse Oximetry 96 93 04/21/20 20:00 04/21/20 20:14 04/21
[2020-04-22] MEDS: ROCURONIUM BROMIDE 50 MG/5 ML VIAL IV PUSH (16:36)
[2020-04-22 19:21] LABS: Glucose Point of Care 127 (65-105)
--- NOTE | 2020-04-22 19:37 | PC.NURSE ---
1604- Patient began to have desaturations to 75%, Myself, Ofelia RN, and Tamia PATTERN ATTENDANT at bedside bagging patient and adjusting sedation. After 30 minutes patient was unable to have improvement. Dr. Ferro at bedside and rocuronium ordered and given with improvement in oxygen saturations. Patient placed back on ventilator with adjusted setting of increased PEEP and respiratory rate. Nimbex restarted and chest xray ordered. Dr. Dave notified of event and aware of ventilator changed and resumption of Nimbex.
[2020-04-22] MEDS: PROPOFOL IV EMULSION 100 ML 16.27 MG IV CONT (21:54)
[2020-04-23] VITALS (27 sets, daily range): BP systolic 97–138; BP diastolic 65–88; PULSE 81–103; RESP 28; TEMP 37.3–37.6; O2SAT 92–98
[2020-04-23 00:26] LABS: Glucose Point of Care 131 (65-105)
[2020-04-23] MEDS: ALBUTEROL SULFATE NEB 2.5 MG/0.5 ML INH INHALATION ×4 (02:28→20:00)
[2020-04-23] MEDS: IPRATROPIUM BR 0.02% INH SOLN 0.5 MG/2.5 ML VIAL INHALATION ×4 (02:28→20:00)
[2020-04-23] MEDS: PROPOFOL IV EMULSION 100 ML 18.98 MG IV CONT ×3 (02:51→13:22)
[2020-04-23] MEDS: FENTANYL 2,500MCG/NS250ML(*CRX 2,500 MCG/250 ML BAG 20 MCG IV CONT ×2 (02:57→15:37)
[2020-04-23 03:18] LABS: Basophils Percent Auto 0.3 % (0.2-1.2); Eosinophils Absolute Auto 0.5 K/mm3 (0-0.3); Eosinophils Percent Auto 6.1 % (0-4.4); Hematocrit 27.9 % (42.0-52.0); Hemoglobin 8.8 g/dL (14.0-18.0); Immature Granulocyte Absolute 0.18 K/mm3 (0.00-0.031); Immature Granulocyte Percent A 2.1 % (0-0.5); Lymphocytes Absolute Auto 0.86 K/mm3 (0.9-3.2); Lymphocytes Percent Auto 9.9 % (18.3-44.2); Mean Corpuscular HGB Conc 31.5 g/dl (32-36); Mean Corpuscular Hemoglobin 31.7 pg (26-34); Mean Corpuscular Volume 100.4 fl (80-100); Mean Platelet Volume 11.1 fl (7.4-10.4); Monocytes Absolute Auto 0.3 K/mm3 (0.1-0.6); Monocytes Percent Auto 3.6 % (2.6-8.5); Neutrophils Absolute Auto 6.8 K/mm3 (1.3-6.7); Platelet Count Result 264 k/mm3 (150-375); Red Blood Count 2.78 M/mm3 (4.6-6.20); Red Cell Distribution Width 12.9 % (11.5-14.5); White Blood Count 8.7 K/mm3 (4.5-10.0)
[2020-04-23 03:41] LABS: D Dimer 3.27 ug/mL (<0.48)
[2020-04-23 03:50] LABS: Alanine Aminotransferase 55 U/L (4-50); Albumin Level 2.4 g/dL (3.5-5.1); Alkaline Phosphatase 359 U/L (38-126); Anion Gap 1 mmol/L (8-16); Aspartate Amino Transferase 75 U/L (17-59); Bilirubin,Total 0.5 mg/dL (0.2-1.3); Blood Urea Nitrogen 20 mg/dL (9-20); Calcium 7.2 mg/dL (8.4-10.2); Carbon Dioxide 38 mmol/L (22-30); Chloride 93 mmol/L (98-107); Estimated CRCL calculation 111 ml/min; Estimated Glomerular Filt Rate > 60; Glucose 149 mg/dL (75-110); Lactate Dehydrogenase 963 U/L (313-618); Magnesium 2.1 mg/dL (1.6-2.3); Potassium 3.9 mmol/L (3.4-5.0); Sodium 132 mmol/L (137-145)
[2020-04-23 04:10] LABS: CRP 40.2 mg/dL (<1.0)
[2020-04-23 05:16] LABS: Alveolar/Arterial O2 Gradient 561.3 mmHg; Base Excess ABG 6.8 mEq/l (+/-2.0); Fractional Inspired Oxygen 100 %; HCO3 ABG 34.2 mEq/l (22.0-26.0); Oxygen Content ABG 16.2 %vol (16.0-22.0); Oxygen Saturation ABG 96.1 % (95.0-100.0); Oxyhemoglobin 95.6 % THb (90.0-100.0); PO2 ABG 88.7 mmHg (80.0-100.0); PO2 FiO2 Ratio Arterial Blood 0.89 %; pH ABG 7.352 (7.350-7.450)
[2020-04-23 05:18] LABS: Device VENTILATOR; Modified Allen's Test Pass; Site Drawn RIGHT RADIAL
[2020-04-23 05:19] LABS: Arterial Blood Gas PEEP 16 cmH2O; Arterial Blood Gas Tidal Volume 400 ml; Arterial Blood Gas Vent Mode CMV; Arterial Blood Gas Ventilator rate 28 /MIN
[2020-04-23] MEDS: CENTRAL LINE FLUSH 10 ML IV PUSH ×3 (05:21→19:50)
[2020-04-23] MEDS: LEVOTHYROXINE SODIUM INJ 100 MCG/5 ML VIAL 50 MCG IV PUSH (07:00)
[2020-04-23] MEDS: ENOXAPARIN 40 MG/0.4 ML SYRINGE SUB-Q ×2 (09:24→19:50)
[2020-04-23] MEDS: PANTOPRAZOLE SODIUM IV 40 MG VIAL IV PUSH (09:24)
[2020-04-23 12:13] LABS: Glucose Point of Care 110 (65-105)
--- NOTE | 2020-04-23 12:29 | PCDIET ---
ICU Rounding Note: Patient tolerating Vital 1.2 at 60mL/hr goal rate. Last recorded weight is 91.8kg which is increased from last review. Bowel Motility: Last documented BM on 04/15/20 - discussed with RN and MD during rounds. Labs Reviewed: Hgb (8.8), Hct (27.9), Glu (149), Na (132), Alb (2.4), Mani Ca (8.48) Meds Noted: Albuterol, Nimbex, Fentanyl, Novolog, Atrovent, Synthroid, Versed, Protonix, Propofol (rate of 18.98mL/hr provides 501kcal per day) Additional Notes: Nose with abrasion. No other skin issues documented. Following daily in ICU rounds. Assessing/reassessing every Thursday/Thursday.
--- NOTE | 2020-04-23 14:41 | WPDINTPN ---
Progress Note: A&P Assessment and Plan (1) Acute respiratory failure with hypoxemia: Code(s): J96.01 - Acute respiratory failure with hypoxia Status: Acute Assessment and Plan: patient with COVID-19 19 pneumonia, - Patient was intubated on on 04/17/2020 . - CMV mode of ventilation, peep of 16 and 100% FiO2. ABGs and chest x-ray reviewed, will decrease PEEP to 14. Wean FiO2 gradually to maintain O2 sats greater than 92% - Patient is on the old bird 8400 ventilator, there is a discrepancy with inhaled and exhaled tidal volume numbers. - continue bronchodilators - on fentanyl and Versed infusion for sedation. - patient was weaned off neuromuscular blockade he on 04/22/2020 and was restarted overnight due to dyssynchrony and desaturation (2) Pneumonia due to COVID-19 virus: Code(s): U07.1 - COVID-19; J12.89 - Other viral pneumonia Status: Acute Assessment and Plan: patient admitted on 04/04/2020 with increasing shortness of breath, fevers, chills and cough. SARS-CoV-2 PCR PCR was positive on 03/28/2020 - chest x-ray shows - Diffuse lung disease with slight improvement, consistent with pneumonia and/or pulmonary edema and/or acute respiratory distress syndrome (ARDS). - completed course of azithromycin and ceftriaxone which was started on 04/05/2020. - Will check procalcitonin level. Low threshold for initiation of antibiotics if further clinical data suggest evidence of bacterial secondary infection. - Completed course of Remdesivir ( started on 04/05/2020) - completed dexamethasone (started on 04/06/2020). resuming dexamethasone may not give him any additional benefit because he is almost 25 days past his actual diagnosis of COVID pneumonia. - received a unit of convalescent COVID-19 plasma on 04/06/2020 And 04/08/2020 - continue airborne, droplet, contact isolation and precautions - inflammatory markers are elevated, will continue to trend (3) Acute renal failure: Qualifiers: Acute renal failure type: unspecified Qualified Code(s): N17.9 - Acute kidney failure, unspecified Code(s): N17.9 - Acute kidney failure, unspecified Status: Resolved Assessment and Plan: acute kidney injury resolved, creatinine of 0.7, - Continue to monitor renal functions and electrolytes. (4) Chronic GERD: Code(s): K21.9 - Gastro-esophageal reflux disease without esophagitis Status: Chronic Assessment and Plan: continue IV PPI (5) Adult hypothyroidism: Code(s): E03.9 - Hypothyroidism, unspecified Status: Chronic Assessment and Plan: continue levothyroxine IV with 1/2 of regular dose (6) Benign essential hypertension: Code(s): I10 - Essential (primary) hypertension Status: Chronic Assessment and Plan: blood pressure is within normal limits, will hold antihypertensives at this time. He normally takes olmesartan. (7) Dietary counseling and surveillance: Code(s): Z71.3 - Dietary counseling and surveillance Status: Acute Assessment and Plan: tolerating tube feeds stress ulcer prophylaxis: Protonix (8) DVT prophylaxis: Code(s): Z29.9 - Encounter for prophylactic measures, unspecified Status: Acute Assessment and Plan: high D-dimer level. patient is on intermediate does of Lovenox at 40 mg Sub-cu Q12H Additional Plan will discuss with family and updated them code status: Full code critical care time spent: 35minutes Due to a high probability of clinically significant, life threatening deterioration, the patient required my highest level of preparedness to intervene emergently and I personally spent this critical care time directly and personally managing the patient. This critical care time included obtaining a history; examining the patient; pulse oximetry; ordering and review of studies; arranging urgent treatment with development
[2020-04-23 17:48] LABS: Glucose Point of Care 128 (65-105)
[2020-04-23] MEDS: PROPOFOL IV EMULSION 100 ML 16.27 MG IV CONT (19:48)
[2020-04-24] VITALS (41 sets, daily range): BP systolic 111–159; BP diastolic 76–100; PULSE 88–126; RESP 22–28; TEMP 37.3–38.4; O2SAT 89–98
[2020-04-24 02:24] LABS: Glucose Point of Care 154 (65-105)
[2020-04-24] MEDS: IPRATROPIUM BR 0.02% INH SOLN 0.5 MG/2.5 ML VIAL INHALATION ×4 (02:34→22:06)
[2020-04-24] MEDS: ALBUTEROL SULFATE NEB 2.5 MG/0.5 ML INH INHALATION ×4 (02:34→22:05)
[2020-04-24] MEDS: LEVOTHYROXINE SODIUM INJ 100 MCG/5 ML VIAL 50 MCG IV PUSH (06:04)
[2020-04-24] MEDS: FENTANYL 2,500MCG/NS250ML(*CRX 2,500 MCG/250 ML BAG 20 MCG IV CONT ×2 (06:06→18:13)
[2020-04-24] MEDS: CENTRAL LINE FLUSH 10 ML IV PUSH ×3 (06:06→21:11)
[2020-04-24 06:19] LABS: Alveolar/Arterial O2 Gradient 511.9 mmHg; Base Excess ABG 6.8 mEq/l (+/-2.0); Carboxyhemoglobin 0.3 % THb (0-2.0); Fractional Inspired Oxygen 90 %; HCO3 ABG 34.5 mEq/l (22.0-26.0); Oxygen Content ABG 13.1 %vol (16.0-22.0); Oxygen Saturation ABG 88.1 % (95.0-100.0); Oxyhemoglobin 89.2 % THb (90.0-100.0); PO2 FiO2 Ratio Arterial Blood 0.67 %; Reduced Hemoglobin 10.5 %THb (0-5.0); Total Hemoglobin 10.4 g/dL (12.0-18.0); pH ABG 7.323 (7.350-7.450)
[2020-04-24 06:20] LABS: PCO2 ABG 68.1 mmHg (35.0-45.0); Site Drawn RIGHT RADIAL
[2020-04-24 06:21] LABS: Arterial Blood Gas Ventilator rate 28 /MIN; Device VENTILATOR; Modified Allen's Test Pass
[2020-04-24 06:22] LABS: Arterial Blood Gas PEEP 14 cmH2O; Arterial Blood Gas Tidal Volume 400 ml; Arterial Blood Gas Vent Mode CMV
[2020-04-24 06:27] LABS: Hematocrit 29.7 % (42.0-52.0); Hemoglobin 9.5 g/dL (14.0-18.0); Mean Corpuscular Hemoglobin 31.7 pg (26-34); Mean Platelet Volume 10.8 fl (7.4-10.4); Platelet Count Result 344 k/mm3 (150-375); Red Cell Distribution Width 13.1 % (11.5-14.5); White Blood Count 11.7 K/mm3 (4.5-10.0)
[2020-04-24 06:54] LABS: Phosphorus 3.4 mg/dL (2.5-4.5)
[2020-04-24] MEDS: PROPOFOL IV EMULSION 100 ML 16.27 MG IV CONT (07:59)
[2020-04-24] MEDS: ENOXAPARIN 40 MG/0.4 ML SYRINGE SUB-Q ×2 (08:03→21:11)
[2020-04-24] MEDS: PANTOPRAZOLE SODIUM IV 40 MG VIAL IV PUSH (08:04)
--- NOTE | 2020-04-24 11:55 | PCDIET ---
Nutrition Follow-Up Complete: Nutrition Diagnosis: Inadequate oral intake related to pneumonia as evidenced by NPO status, weight loss prior to admission. Nutrition Goal: Patient to meet estimated nutritional needs. Goal met. Patient tolerating Vital 1.2 at 60mL/hr without reported issues. No residuals, per RN. Last recorded weight is 95.2 kg which is increased from last review. Bowel Motility: Last documented BM on 04/23/20. Labs Reviewed: Hgb (9.5), Hct (29.7), Glu (154) Meds Noted: Albuterol, Nimbex, Fentanyl, Atrovent, Synthroid, Versed, Protonix, Propofol (rate of 16.27mL/hr provides 429kcal over 24 hours) Additional Notes: Buttocks macerated. Bilateral nose abrasion from previous high flow oxygen. Will continue to monitor with same goal. Nutrition Monitoring and Evaluation: Follow up every Thursday/Thursday. Follow daily in ICU rounds.
[2020-04-24] MEDS: PROPOFOL IV EMULSION 100 ML 18.98 MG IV CONT ×3 (12:56→23:16)
--- NOTE | 2020-04-24 13:33 | WPDINTPN ---
Progress Note: A&P Assessment and Plan (1) Acute respiratory failure with hypoxemia: Code(s): J96.01 - Acute respiratory failure with hypoxia Status: Acute Assessment and Plan: patient with COVID-19 19 pneumonia, - Patient was intubated on on 04/17/2020 . - CMV mode of ventilation, peep of 14 and 90% FiO2. will wean PEEP and FiO2 as tolerated - Patient is on the old bird 8400 ventilator, there is a discrepancy with inhaled and exhaled tidal volume numbers. - continue bronchodilators - on fentanyl, Versed and propofol infusion for sedation. - patient was weaned off neuromuscular blockade he on 04/23/2020 due to dyssynchrony and desaturation. (2) Pneumonia due to COVID-19 virus: Code(s): U07.1 - COVID-19; J12.89 - Other viral pneumonia Status: Acute Assessment and Plan: patient admitted on 04/04/2020 with increasing shortness of breath, fevers, chills and cough. SARS-CoV-2 PCR PCR was positive on 03/28/2020 - chest x-ray shows - Diffuse lung disease with slight improvement, consistent with pneumonia and/or pulmonary edema and/or acute respiratory distress syndrome (ARDS). - completed course of azithromycin and ceftriaxone which was started on 04/05/2020. - Will check procalcitonin level. Low threshold for initiation of antibiotics if further clinical data suggest evidence of bacterial secondary infection. - Completed course of Remdesivir ( started on 04/05/2020) - completed dexamethasone (started on 04/06/2020). resuming dexamethasone may not give him any additional benefit because he is almost 25 days past his actual diagnosis of COVID pneumonia. - received a unit of convalescent COVID-19 plasma on 04/06/2020 And 04/08/2020 - continue airborne, droplet, contact isolation and precautions - inflammatory markers are elevated, will continue to trend (3) Acute renal failure: Qualifiers: Acute renal failure type: unspecified Qualified Code(s): N17.9 - Acute kidney failure, unspecified Code(s): N17.9 - Acute kidney failure, unspecified Status: Resolved Assessment and Plan: acute kidney injury resolved, creatinine of 0.7, - Continue to monitor renal functions and electrolytes. (4) Chronic GERD: Code(s): K21.9 - Gastro-esophageal reflux disease without esophagitis Status: Chronic Assessment and Plan: continue IV PPI (5) Adult hypothyroidism: Code(s): E03.9 - Hypothyroidism, unspecified Status: Chronic Assessment and Plan: continue levothyroxine IV with 1/2 of regular dose (6) Benign essential hypertension: Code(s): I10 - Essential (primary) hypertension Status: Chronic Assessment and Plan: blood pressure is within normal limits, will hold antihypertensives at this time. He normally takes olmesartan. (7) Dietary counseling and surveillance: Code(s): Z71.3 - Dietary counseling and surveillance Status: Acute Assessment and Plan: tolerating tube feeds stress ulcer prophylaxis: Protonix (8) DVT prophylaxis: Code(s): Z29.9 - Encounter for prophylactic measures, unspecified Status: Acute Assessment and Plan: high D-dimer level. patient is on intermediate does of Lovenox at 40 mg Sub-cu Q12H Additional Plan will discuss with family and updated them code status: Full code critical care time spent: 33 minutes Due to a high probability of clinically significant, life threatening deterioration, the patient required my highest level of preparedness to intervene emergently and I personally spent this critical care time directly and personally managing the patient. This critical care time included obtaining a history; examining the patient; pulse oximetry; ordering and review of studies; arranging urgent treatment with development of a management plan; evaluation of patient's response to treatment; frequent reassessment;
[2020-04-24 13:51] LABS: Glucose Point of Care 128 (65-105)
--- NOTE | 2020-04-24 17:33 | PM.IMPN ---
Progress Note: A&P Assessment and Plan (1) Acute respiratory failure with hypoxemia: Code(s): J96.01 - Acute respiratory failure with hypoxia Status: Acute Assessment and Plan: On ventilator support Appreciate int/cc note Continue supportive care Daily labs Strict I/O's Replace electrolytes as needed Daily chest xr Breathing treatments. Pulmonary toilette. (2) Pneumonia due to COVID-19 virus: Code(s): U07.1 - COVID-19; J12.89 - Other viral pneumonia Status: Acute Assessment and Plan: Patient completed Remdesivir Currently off of antibiotics Chest xr noted (3) Acute renal failure: Qualifiers: Acute renal failure type: unspecified Qualified Code(s): N17.9 - Acute kidney failure, unspecified Code(s): N17.9 - Acute kidney failure, unspecified Status: Resolved Assessment and Plan: Resolved. Subjective Date/time seen: 04/24/20 17:33 Patient on vent support. Review of Systems Review of Systems: Narrative: Covid pneumonia initially, now on vent support. Exam Narrative: Exam Narrative: In bed on vent support. Const: General: other (Under sedation, on life support.) Nutritional Appearance: average body habitus HENMT: Head: normal to inspection and normocephalic Teeth and gingiva: other (ETT in place.) Eyes: General: appearance normal, both eyes and all related structures Pupils: Equal, round and reactive pupils present Other: Both eyes are closed. Neck: Neck: no lymphadenopathy and no JVD Resp: Auscultation: diminished lung sounds Other: On vent support. Cardio: Rate: regular rate Rhythm: regular rhythm GI: Inspection: normal to inspection GI Palp: Yes Soft to palpation and Yes No hepatosplenomegaly present Auscultation: normal bowel sounds Skin: General skin exam: normal color Lesions: no lesions Rashes: no rashes Trauma: no lacerations or abrasions Wounds: no wounds Neuro: General: other (Under sedation.) Extrem: General: no pedal edema Objective Data Vital Signs Vital Signs: Vital Signs - 24 hr 04/23/20 18:00 04/23/20 19:46 04/23/20 20:00 Temperature 99.2 F 99.3 F Pulse Rate 92 98 96 Respiratory Rate 28 H 28 H 28 H Blood Pressure 115/77 138/88 Pulse Oximetry 94 95 04/23/20 20:01 04/23/20 22:00 04/23/20 23:33 Temperature 99.1 F Pulse Rate 103 H 94 88 Respiratory Rate 28 H 28 H Blood Pressure 130/82 Pulse Oximetry 94 95 98 04/24/20 00:00 04/24/20 01:57 04/24/20 02:00 Temperature 99.4 F 99.3 F Pulse Rate 88 102 H 114 H Respiratory Rate 28 H 28 H 28 H Blood Pressure 115/76 144/100 H Pulse Oximetry 98 97 04/24/20 02:35 04/24/20 02:41 04/24/20 04:00 Temperature 99.2 F Pulse Rate 113 H 111 H 101 H Respiratory Rate 28 H 28 H 28 H Blood Pressure 111/79 Pulse Oximetry 93 92 04/24/20 04:07 04/24/20 05:50 04/24/20 06:00 Temperature 99.4 F Pulse Rate 114 H 111 H 122 H Respiratory Rate 28 H 28 H Blood Pressure 146/98 H Pulse Oximetry 96 91 04/24/20 06:06 04/24/20 07:59 04/24/20 08:00 Temperature 99.5 F Pulse Rate 114 H 102 H 102 H Respiratory Rate 28 H 28 H 28 H Blood Pressure 143/91 H Pulse Oximetry 96 04/24/20 08:02 04/24/20 08:10 04/24/20 08:20 Temperature Pulse Rate 101 H 101 H 108 H Respiratory Rate 28 H 28 H 28 H Blood Pressure Pulse Oximetry 95 04/24/20 09:00 04/24/20 10:00 04/24/20 11:42 Temperature 99.7 F H Pulse Rate 100 102 H 101 H Respiratory Rate 28 H 28 H Blood Pressure 125/79 118/82 Pulse Oximetry 92 92 04/24/20 11:48 04/24/20 12:00 04/24/20 12:56 Temperature 100 F H Pulse Rate 103 H 101 H 103 H Respiratory Rate 28 H 28 H 28 H Blood Pressure 125/85 123/81 Pulse Oximetry 93 04/24/20 14:00 04/24/20 14:36 04/24/20 14:37 Temperature 100.2 F H Pulse Rate 102 H 99 99 Respiratory Rate 28 H 28 H Blood Pressure 116/78 Pulse Oximetry 93 92 04/24/20 14:48 04/24/20 16:00 04/24/20 16:37 Dori
[2020-04-24] MEDS: INSULIN ASPART (*BKC) 100 UNITS/ML SUB-Q ×2 (18:27→23:15)
[2020-04-24 18:52] LABS: Glucose Point of Care 203 (65-105)
[2020-04-24 23:53] LABS: Glucose Point of Care 204 (65-105)
[2020-04-25] VITALS (59 sets, daily range): BP systolic 105–134; BP diastolic 71–89; PULSE 83–105; RESP 20–35; TEMP 36.4–37.5; O2SAT 88–98
[2020-04-25] MEDS: ALBUTEROL SULFATE NEB 2.5 MG/0.5 ML INH INHALATION (01:50)
[2020-04-25] MEDS: IPRATROPIUM BR 0.02% INH SOLN 0.5 MG/2.5 ML VIAL INHALATION (01:50)
--- NOTE | 2020-04-25 03:08 | PC.NURSE ---
Patient placed in proned position per Dr. Escobar. Continue to monitor.
[2020-04-25] MEDS: PROPOFOL IV EMULSION 100 ML 24.41 MG IV CONT ×4 (03:44→20:49)
--- NOTE | 2020-04-25 04:16 | P.PNCROSS_ITS ---
Event Note Event Note Event Note: Around 3:00 a.m. patient began having increasing episodes of hypoxia. His oxyg en saturations were staying at or below 88%. Subsequently a given order for the patient be placed in prone position. After proning the patient had a significant amount of secretions suctioned from his ET tube. His oxygen saturations have improved to 90%. If the patient's oxygen saturations decline again will need to place patient on Flolan.
[2020-04-25 04:45] LABS: Alveolar/Arterial O2 Gradient 575.6 mmHg; Base Excess ABG 6.7 mEq/l (+/-2.0); Fractional Inspired Oxygen 100 %; HCO3 ABG 34.8 mEq/l (22.0-26.0); Methemoglobin ABG 0.1 %THb (0-1.5); Oxygen Content ABG 12.5 %vol (16.0-22.0); Oxyhemoglobin 90.5 % THb (90.0-100.0); PO2 ABG 63.8 mmHg (80.0-100.0); PO2 FiO2 Ratio Arterial Blood 0.64 %; Reduced Hemoglobin 9.4 %THb (0-5.0); Total Hemoglobin 9.8 g/dL (12.0-18.0)
[2020-04-25 04:49] LABS: Modified Allen's Test Unable to perform; PCO2 ABG 73.6 mmHg (35.0-45.0); Site Drawn RIGHT RADIAL; pH ABG 7.293 (7.350-7.450)
[2020-04-25 04:50] LABS: Arterial Blood Gas Minute Volume 20 LPM; Arterial Blood Gas PEEP 14 cmH2O; Arterial Blood Gas Tidal Volume 400 ml; Arterial Blood Gas Vent Mode ASSIST CONTROL; Arterial Blood Gas Ventilator rate 28 /MIN; Device VENTILATOR
[2020-04-25 06:12] LABS: Hematocrit 26.8 % (42.0-52.0); Hemoglobin 8.8 g/dL (14.0-18.0); Mean Corpuscular HGB Conc 32.8 g/dl (32-36); Mean Corpuscular Hemoglobin 33.1 pg (26-34); Mean Corpuscular Volume 100.8 fl (80-100); Mean Platelet Volume 10.8 fl (7.4-10.4); Platelet Count Result 303 k/mm3 (150-375); Red Blood Count 2.66 M/mm3 (4.6-6.20); Red Cell Distribution Width 13.2 % (11.5-14.5); White Blood Count 10.8 K/mm3 (4.5-10.0)
[2020-04-25] MEDS: EPOPROSTENOL SODIUM 0.5 MG VIAL 1 MG INHALATION ×4 (06:16→20:46)
[2020-04-25] MEDS: FENTANYL 2,500MCG/NS250ML(*CRX 2,500 MCG/250 ML BAG 20 MCG IV CONT ×2 (06:25→18:40)
[2020-04-25] MEDS: LEVOTHYROXINE SODIUM INJ 100 MCG/5 ML VIAL 50 MCG IV PUSH (06:26)
[2020-04-25] MEDS: CENTRAL LINE FLUSH 10 ML IV PUSH ×3 (06:26→21:03)
[2020-04-25 06:27] LABS: Lactate Dehydrogenase 885 U/L (313-618); Phosphorus 3.9 mg/dL (2.5-4.5)
[2020-04-25 06:33] LABS: Glucose Point of Care 155 (65-105)
[2020-04-25 06:33] LABS: D Dimer 3.93 ug/mL (<0.48)
[2020-04-25 06:36] LABS: Alveolar/Arterial O2 Gradient 573.8 mmHg; Base Excess ABG 6.3 mEq/l (+/-2.0); Carboxyhemoglobin 0.3 % THb (0-2.0); Fractional Inspired Oxygen 100 %; HCO3 ABG 33.9 mEq/l (22.0-26.0); Methemoglobin ABG 0.2 %THb (0-1.5); Oxygen Content ABG 13.3 %vol (16.0-22.0); Oxygen Saturation ABG 92.6 % (95.0-100.0); Oxyhemoglobin 92.8 % THb (90.0-100.0); PO2 ABG 71.7 mmHg (80.0-100.0); PO2 FiO2 Ratio Arterial Blood 0.72 %; Reduced Hemoglobin 6.7 %THb (0-5.0); Total Hemoglobin 10.1 g/dL (12.0-18.0); pH ABG 7.319 (7.350-7.450)
[2020-04-25 06:37] LABS: Device VENTILATOR; PCO2 ABG 67.5 mmHg (35.0-45.0); Site Drawn LEFT BRACHIAL
[2020-04-25 06:38] LABS: Arterial Blood Gas PEEP 14 cmH2O; Arterial Blood Gas Tidal Volume 400 ml; Arterial Blood Gas Vent Mode ASSIST CONTROL; Arterial Blood Gas Ventilator rate 28 /MIN
[2020-04-25 07:50] LABS: CRP 34.7 mg/dL (<1.0)
[2020-04-25] MEDS: NEOMYCIN/POLYMYXIN/BACITRACIN OINTMENT 15 GM TUBE 1 APPLIC TOPICAL (09:16)
[2020-04-25] MEDS: ENOXAPARIN 40 MG/0.4 ML SYRINGE SUB-Q ×2 (09:16→21:04)
[2020-04-25] MEDS: PANTOPRAZOLE SODIUM IV 40 MG VIAL IV PUSH (09:16)
[2020-04-25 09:58] LABS: Ferritin > 2000.00 ng/mL (17.9-464)
--- NOTE | 2020-04-25 11:40 | WPDINTPN ---
Progress Note: A&P Assessment and Plan (1) Acute respiratory failure with hypoxemia: Code(s): J96.01 - Acute respiratory failure with hypoxia Status: Acute Assessment and Plan: patient with COVID-19 19 pneumonia, - Patient was intubated on on 04/17/2020 . - CMV mode of ventilation, peep of 14 and 100 FiO2. - patient started on Flolan inhaled. rate change to 10.5 mL/hr which will give him 50 ng/kg/minute dose - will retry prone position ventilation - Patient is on the old bird 8400 ventilator, monitoring is not accurate on these ventilator. - continue bronchodilators - on fentanyl, Versed and propofol infusion for sedation. - patient is on neuromuscular blockade with Nimbex infusion (2) Pneumonia due to COVID-19 virus: Code(s): U07.1 - COVID-19; J12.89 - Other viral pneumonia Status: Acute Assessment and Plan: patient admitted on 04/04/2020 with increasing shortness of breath, fevers, chills and cough. SARS-CoV-2 PCR PCR was positive on 03/28/2020 - chest x-ray shows - Diffuse lung disease with slight improvement, consistent with pneumonia and/or pulmonary edema and/or acute respiratory distress syndrome (ARDS). - completed course of azithromycin and ceftriaxone which was started on 04/05/2020. - Completed course of Remdesivir ( started on 04/05/2020) - completed dexamethasone (started on 04/06/2020). resuming dexamethasone may not give him any additional benefit because he is almost 25 days past his actual diagnosis of COVID pneumonia. - received a 2 units of convalescent COVID-19 plasma on 04/06/2020 and 04/08/2020 - continue airborne, droplet, contact isolation and precautions - inflammatory markers are elevated, will continue to trend (3) Acute renal failure: Qualifiers: Acute renal failure type: unspecified Qualified Code(s): N17.9 - Acute kidney failure, unspecified Code(s): N17.9 - Acute kidney failure, unspecified Status: Resolved Assessment and Plan: acute kidney injury resolved, - Continue to monitor renal functions and electrolytes. (4) Chronic GERD: Code(s): K21.9 - Gastro-esophageal reflux disease without esophagitis Status: Chronic Assessment and Plan: continue IV PPI (5) Adult hypothyroidism: Code(s): E03.9 - Hypothyroidism, unspecified Status: Chronic Assessment and Plan: continue levothyroxine IV with 1/2 of regular dose (6) Benign essential hypertension: Code(s): I10 - Essential (primary) hypertension Status: Chronic Assessment and Plan: blood pressure is within normal limits, will hold antihypertensives at this time. He normally takes olmesartan. (7) Dietary counseling and surveillance: Code(s): Z71.3 - Dietary counseling and surveillance Status: Acute Assessment and Plan: tube feeds on hold at this time. Resume tube feeds once patient is placed in prone position and tolerates it stress ulcer prophylaxis: Protonix (8) DVT prophylaxis: Code(s): Z29.9 - Encounter for prophylactic measures, unspecified Status: Acute Assessment and Plan: high D-dimer level. patient is on intermediate does of Lovenox at 40 mg Sub-cu Q12H Additional Plan code status: Full code patient is close to 1 month out of his COVID diagnosis and has completed treatment with remdesivir, dexamethasone and plasma but has deteriorated despite. his overall prognosis is poor. critical care time spent: 32 minutes Due to a high probability of clinically significant, life threatening deterioration, the patient required my highest level of preparedness to intervene emergently and I personally spent this critical care time directly and personally managing the patient. This critical care time included obtaining a history; examining the patient; pulse oximetry; ordering and review of studies; arranging urgent treatme
--- NOTE | 2020-04-25 11:51 | PM.IMPN ---
Progress Note: A&P Assessment and Plan (1) Acute respiratory failure with hypoxemia: Code(s): J96.01 - Acute respiratory failure with hypoxia Status: Acute Assessment and Plan: On vent support. Management as per Int/CC (2) Pneumonia due to COVID-19 virus: Code(s): U07.1 - COVID-19; J12.89 - Other viral pneumonia Status: Acute Assessment and Plan: Completed course of Remdesivir/Rocephin/Zithromax Completed Dexamethasone Supportive care. (3) Acute renal failure: Qualifiers: Acute renal failure type: unspecified Qualified Code(s): N17.9 - Acute kidney failure, unspecified Code(s): N17.9 - Acute kidney failure, unspecified Status: Resolved Assessment and Plan: Continue to monitor Daily labs Avoid nephrotoxins Likely ATN (4) Dysphagia: Code(s): R13.10 - Dysphagia, unspecified Status: Acute Assessment and Plan: On NG feeds Subjective Date/time seen: 04/25/20 11:51 On vent support. Review of Systems Review of Systems: Narrative: Unable to obtain due to patient been on vent. Exam Narrative: Exam Narrative: On life support. Const: General: comfortable and other (On life support, under sedation.) Nutritional Appearance: average body habitus Other: sedated HENMT: Head: normal to inspection and normocephalic Other: ETT in place. Eyes: General: appearance normal, both eyes and all related structures Pupils: Equal, round and reactive pupils present EOM: EOMs intact bilaterally Neck: Neck: normal visual inspection, no lymphadenopathy and no JVD Resp: Auscultation: diminished lung sounds Cardio: Jugular venous distension: no JVD Rate: regular rate Rhythm: regular rhythm GI: Inspection: normal to inspection GI Palp: Yes Soft to palpation and Yes No hepatosplenomegaly present Skin: General skin exam: normal color Lesions: no lesions Rashes: no rashes Wounds: no wounds Neuro: General: other (Under sedation.) Extrem: General: no pedal edema Objective Data Vital Signs Vital Signs: Vital Signs - 24 hr 04/24/20 12:00 04/24/20 12:56 04/24/20 14:00 Temperature 100 F H 100.2 F H Pulse Rate 101 H 103 H 102 H Respiratory Rate 28 H 28 H 28 H Blood Pressure 123/81 116/78 Pulse Oximetry 93 93 04/24/20 14:36 04/24/20 14:37 04/24/20 14:48 Temperature Pulse Rate 99 99 101 H Respiratory Rate 28 H 28 H Blood Pressure Pulse Oximetry 92 04/24/20 16:00 04/24/20 16:37 04/24/20 17:14 Temperature 100.5 F H Pulse Rate 101 H 100 109 H Respiratory Rate 28 H 28 H Blood Pressure 121/84 Pulse Oximetry 94 90 04/24/20 18:00 04/24/20 18:13 04/24/20 18:17 Temperature 101.2 F H 101.2 F H Pulse Rate 122 H 126 H 124 H Respiratory Rate 28 H 28 H 28 H Blood Pressure 159/98 H Pulse Oximetry 89 L 04/24/20 19:01 04/24/20 19:23 04/24/20 20:00 Temperature 101.2 F H 100.4 F H Pulse Rate 105 H 102 H Respiratory Rate 28 H Blood Pressure 120/81 114/78 Pulse Oximetry 91 04/24/20 21:47 04/24/20 22:00 04/24/20 22:10 Temperature 99.1 F Pulse Rate 98 99 98 Respiratory Rate 22 H Blood Pressure 113/82 120/84 Pulse Oximetry 92 92 04/24/20 23:16 04/24/20 23:19 04/24/20 23:20 Temperature Pulse Rate 102 H 102 H 102 H Respiratory Rate 28 H 28 H 28 H Blood Pressure 121/85 Pulse Oximetry 04/24/20 23:21 04/25/20 00:00 04/25/20 00:26 Temperature 99.2 F Pulse Rate 101 H 98 100 Respiratory Rate 28 H 28 H 28 H Blood Pressure 122/82 Pulse Oximetry 90 04/25/20 00:27 04/25/20 00:30 04/25/20 00:31 Temperature Pulse Rate 100 100 100 Respiratory Rate 28 H 28 H 28 H Blood Pressure 122/82 122/82 Pulse Oximetry 04/25/20 00:37 04/25/20 01:51 04/25/20 01:53 Temperature Pulse Rate 97 99 99 Respiratory Rate 28 H Blood Pressure Pulse Oximetry 91 91 04/25/20 01:57 04/25/20 01:59 04/25/20 02:00 Temperature 99.5 F 99.5 F Pulse Rate 98 96 Resp
[2020-04-25 12:14] LABS: Alveolar/Arterial O2 Gradient 574.4 mmHg; Base Excess ABG 10.2 mEq/l (+/-2.0); Fractional Inspired Oxygen 100 %; HCO3 ABG 38.1 mEq/l (22.0-26.0); Oxygen Content ABG 14.3 %vol (16.0-22.0); Oxygen Saturation ABG 91.7 % (95.0-100.0); Oxyhemoglobin 92.3 % THb (90.0-100.0); PO2 ABG 67.4 mmHg (80.0-100.0); PO2 FiO2 Ratio Arterial Blood 0.67 %; pH ABG 7.346 (7.350-7.450)
[2020-04-25 12:16] LABS: PCO2 ABG 71.2 mmHg (35.0-45.0)
[2020-04-25 12:17] LABS: Arterial Blood Gas PEEP 15 cmH2O; Arterial Blood Gas Vent Mode CMV; Arterial Blood Gas Ventilator rate 28 /MIN; Device VENTILATOR; Modified Allen's Test Pass; Site Drawn LEFT RADIAL
[2020-04-25 12:18] LABS: Arterial Blood Gas Tidal Volume 400 ml
[2020-04-25 12:53] LABS: Glucose Point of Care 114 (65-105)
--- NOTE | 2020-04-25 14:27 | PCDIET ---
ICU Rounding Note: Patient has been tolerating Vital 1.2 tube feedings at 60mL/hr goal rate with residuals 120mL and below. Plan to hold tube feedings for prone positioning and resume later in the day. Last recorded weight is 99.4kg which is increased from last review. +I/O. Bowel Motility: +BM today. Labs Reviewed: Hgb (8.8), Hct (26.8), Glu (155) Meds Noted: Albuterol, Nimbex, Fentanyl, Atrovent, Synthroid, Versed, Protonix, Propofol (rate of 24.41mL/hr provides 644kcal per day) Additional Notes: Bilateral nose abrasion. Bilateral buttocks macerated. Following daily in ICU rounds. Assessing/reassessing every Thursday/Thursday.
[2020-04-25 17:47] LABS: Glucose Point of Care 165 (65-105)
[2020-04-26] VITALS (57 sets, daily range): BP systolic 91–134; BP diastolic 64–82; PULSE 10–103; RESP 28; TEMP 37.1–37.9; O2SAT 92–99
[2020-04-26] MEDS: PROPOFOL IV EMULSION 100 ML 24.41 MG IV CONT ×6 (00:22→20:24)
[2020-04-26 00:25] LABS: Glucose Point of Care 142 (65-105)
[2020-04-26] MEDS: EPOPROSTENOL SODIUM 0.5 MG VIAL 1 MG INHALATION ×6 (01:07→23:51)
[2020-04-26 04:43] LABS: Alveolar/Arterial O2 Gradient 573.7 mmHg; Base Excess ABG 7.4 mEq/l (+/-2.0); Carboxyhemoglobin 0.3 % THb (0-2.0); Fractional Inspired Oxygen 100 %; HCO3 ABG 34.5 mEq/l (22.0-26.0); Methemoglobin ABG 0.3 %THb (0-1.5); Oxygen Content ABG 12.7 %vol (16.0-22.0); Oxygen Saturation ABG 93.7 % (95.0-100.0); Oxyhemoglobin 93.5 % THb (90.0-100.0); PO2 ABG 74.5 mmHg (80.0-100.0); PO2 FiO2 Ratio Arterial Blood 0.75 %; Reduced Hemoglobin 5.9 %THb (0-5.0); Total Hemoglobin 9.6 g/dL (12.0-18.0); pH ABG 7.344 (7.350-7.450)
[2020-04-26 04:45] LABS: Device VENTILATOR; Modified Allen's Test Pass; PCO2 ABG 64.8 mmHg (35.0-45.0); Site Drawn RIGHT RADIAL
[2020-04-26 04:46] LABS: Arterial Blood Gas PEEP 14 cmH2O; Arterial Blood Gas Tidal Volume 400 ml; Arterial Blood Gas Vent Mode CMV; Arterial Blood Gas Ventilator rate 28 /MIN
[2020-04-26 05:34] LABS: Hematocrit 26.8 % (42.0-52.0); Hemoglobin 8.6 g/dL (14.0-18.0); Mean Corpuscular HGB Conc 32.1 g/dl (32-36); Mean Corpuscular Hemoglobin 31.7 pg (26-34); Mean Corpuscular Volume 98.9 fl (80-100); Mean Platelet Volume 10.7 fl (7.4-10.4); Platelet Count Result 356 k/mm3 (150-375); Red Blood Count 2.71 M/mm3 (4.6-6.20); Red Cell Distribution Width 12.9 % (11.5-14.5)
[2020-04-26 05:49] LABS: Alanine Aminotransferase 52 U/L (4-50); Albumin Level 2.5 g/dL (3.5-5.1); Alkaline Phosphatase 328 U/L (38-126); Anion Gap 0.99999 mmol/L (8-16); Aspartate Amino Transferase 62 U/L (17-59); Blood Urea Nitrogen 17 mg/dL (9-20); Calcium 7.7 mg/dL (8.4-10.2); Carbon Dioxide > 40 mmol/L (22-30); Chloride 82 mmol/L (98-107); Estimated CRCL calculation 102 ml/min; Estimated Glomerular Filt Rate > 60; Glucose 136 mg/dL (75-110); Phosphorus 3.8 mg/dL (2.5-4.5); Potassium 5.6 mmol/L (3.4-5.0); Sodium 123 mmol/L (137-145)
[2020-04-26] MEDS: LEVOTHYROXINE SODIUM INJ 100 MCG/5 ML VIAL 50 MCG IV PUSH (06:24)
[2020-04-26] MEDS: CENTRAL LINE FLUSH 10 ML IV PUSH ×3 (06:24→20:17)
[2020-04-26] MEDS: FENTANYL 2,500MCG/NS250ML(*CRX 2,500 MCG/250 ML BAG 20 MCG IV CONT ×2 (06:34→19:04)
[2020-04-26] MEDS: PANTOPRAZOLE SODIUM IV 40 MG VIAL IV PUSH (09:09)
[2020-04-26] MEDS: ENOXAPARIN 40 MG/0.4 ML SYRINGE SUB-Q ×2 (09:09→20:17)
[2020-04-26] MEDS: NEOMYCIN/POLYMYXIN/BACITRACIN OINTMENT 15 GM TUBE 1 APPLIC TOPICAL (09:10)
--- NOTE | 2020-04-26 09:45 | WPDINTPN ---
Progress Note: A&P Assessment and Plan (1) Acute respiratory failure with hypoxemia: Code(s): J96.01 - Acute respiratory failure with hypoxia Status: Acute Assessment and Plan: Patient was COVID-19 pneumonia who was admitted on 04/04/2020 and intubated on 04/17/2020. Intubated 04/17/2020 currently on AC/CMV ventilation with PEEP of 14 rate of 28 100% FiO2. Patient is on fentanyl Versed and propofol for sedation. He was placed on Nimbex 04/17/2020. On 04/25/2020 patient was remaining hypoxic and Flolan was initiated. The patient remains on Flolan. The patient was proned overnight without significant improvement in respiratory status Continue bronchodilator (2) Pneumonia due to COVID-19 virus: Code(s): U07.1 - COVID-19; J12.89 - Other viral pneumonia Status: Acute Assessment and Plan: The patient was diagnosed 03/28/2020 with COVID admitted on 04/04/2020 with acute hypoxic respiratory failure. His chest x-ray demonstrated diffuse lung disease consistent with pneumonia pulmonary edema or ARDS. He was intubated on 04/17/2020. He completed course of antibiotics with azithromycin and Rocephin on 04/05/2020 Remdesivir course was initiated 04/05/2020 in his subsequently completed. Decadron course was initiated 04/06/2020 and has subsequently been completed. He received 2 units of, pleasant plasma 04/06/2020 and 04/08/2020. He remains on airborne droplet and contact precautions. His inflammatory markers are being trended. (3) Acute renal failure: Qualifiers: Acute renal failure type: unspecified Qualified Code(s): N17.9 - Acute kidney failure, unspecified Code(s): N17.9 - Acute kidney failure, unspecified Status: Resolved Assessment and Plan: His creatinine peaked at 2.1 and has subsequently normalized to 0.9. His potassium was elevated today any subsequent release least received a dose of Kayexalate. Fluid positive since admission but given his history of acute renal failure will hold off on diuretics at this time. Additional Plan This case had a high probability of a clinically significant, sudden, or life threatening deterioration of this patient's condition which required my full and direct attention, intervention and personal management. Time Spent With Patient Time with patient: 25 - 35 minutes Subjective Date/time seen: 04/26/20 09:45 Patient is still intermittently spiking fevers. He was proned overnight without improvement in respiratory status. Balance is positive 2.5 L Review of Systems Review of Systems: ROS unobtainable: Yes unobtainable due to endotracheal tube Exam Narrative: Exam Narrative: PHYSICAL EXAM: WEIGHT 98.6 kg BMI General: Acutely ill-appearing, intubated HEENT: ET tube in OG tube in place, dried blood to the nares bilateral, dry mucous membranes, conjunctiva dry Respiratory: Coarse breath sounds bilaterally, equal breath sounds Cardiovascular: Regular rate, no murmurs, normal S1-S2 Gastrointestinal: Distended, hypoactive bowel sounds, soft Skin: Generalized pallor, normal temperature to touch, non jaundice Musculoskeletal: 1 to 2+ pitting edema of upper extremities, 1+ pitting edema lower extremities Neurological: On paralytic, pupils are constricted Psychiatric: Unable to assess : Corley catheter in place with blood-tinged urine in catheter tubing Hematologic/lymphatic: Bleeding from the nares, blood-tinged urine in the catheter bag, no petechiae or bruising Objective Data Vital Signs Vital Signs: Vital Signs - 24 hr 04/25/20 10:00 04/25/20 10:03 04/25/20 10:09 Temperature 98.2 F Pulse Rate 85 84 87 Respiratory Rate 28 H 28 H 28 H Blood Pressure 105/75 107/77 Pulse Oximetry 91 91 04/25/20 11:27 04/25/20 11:35 04/25/20 12:00 Temperature 98.7 F Pulse Rate 89 88 88 Respiratory Rate 28 H 28 H Blood Pressure 112/71 Pulse Oximetry 91 93 91 04/25/20 12:12 04/25/20 12:18 04/25/20 13:34 T
[2020-04-26 11:18] LABS: Anion Gap 0 mmol/L (8-16); Blood Urea Nitrogen 18 mg/dL (9-20); Calcium 7.7 mg/dL (8.4-10.2); Carbon Dioxide 39 mmol/L (22-30); Chloride 83 mmol/L (98-107); Estimated CRCL calculation 102 ml/min; Estimated Glomerular Filt Rate > 60; Glucose 135 mg/dL (75-110); Potassium 5.1 mmol/L (3.4-5.0); Sodium 122 mmol/L (137-145)
[2020-04-26 12:20] LABS: Glucose Point of Care 113 (65-105)
--- NOTE | 2020-04-26 13:05 | PCDIET ---
ICU Rounding Note: Patient tolerating Vital 1.2 at 20mL/hr. MD ordered to increase to 40mL/hr, then advance toward goal of 60mL/hr. Patient continues on 30mL water flush every 4 hours. Last recorded weight is 98.6kg which is down from last review, despite +I/O. Bowel Motility: No documented BM. Discussed during rounds - MD to add Dulcolax and Miralax. Noted patient also had SPS today. Labs Reviewed: Hgb (8.6), Hct (26.8), Glu (136), K (5.6), Na (123), Alb (2.5) Meds Noted: Miralax, Dulcolax, SPS, Albuterol, Nimbex, Fentanyl, Novolog, Atrovent, Synthroid, Versed, Protonix, Propofol (rate of 24.49mL/hr provides 644kcal per day) Additional Notes: Bilateral nose abrasions and buttock maceration documented. Following daily in ICU rounds. Assessing/reassessing every Thursday/Thursday.
[2020-04-26] MEDS: SODIUM POLYSTYRENE SULFONONATE 15 GM/60 ML BTL 30 GM PO (13:30)
--- NOTE | 2020-04-26 14:28 | PM.IMPN ---
Progress Note: A&P Assessment and Plan (1) Acute respiratory failure with hypoxemia: Code(s): J96.01 - Acute respiratory failure with hypoxia Status: Acute Assessment and Plan: On ventilator support Vent management as per cc/int Vent dependent (2) Pneumonia due to COVID-19 virus: Code(s): U07.1 - COVID-19; J12.89 - Other viral pneumonia Status: Acute Assessment and Plan: Patient has completed course of antibiotics + Dexamethasone Continue to monitor Daily chest xr Subjective Date/time seen: 04/26/20 14:28 Unable to obtain as patient is on vent support. Exam Narrative: Exam Narrative: Patient not examined was seen thru glass door. Objective Data Vital Signs Vital Signs: Vital Signs - 24 hr 04/25/20 14:31 04/25/20 15:19 04/25/20 15:42 Temperature Pulse Rate 93 91 91 Respiratory Rate 28 H 28 H Blood Pressure 123/81 Pulse Oximetry 93 93 04/25/20 16:00 04/25/20 16:10 04/25/20 16:11 Temperature 98 F Pulse Rate 89 89 89 Respiratory Rate 28 H 28 H Blood Pressure 120/79 Pulse Oximetry 94 95 94 04/25/20 16:24 04/25/20 16:27 04/25/20 18:00 Temperature Pulse Rate 99 91 97 Respiratory Rate 28 H 28 H 28 H Blood Pressure 122/87 Pulse Oximetry 95 04/25/20 18:18 04/25/20 18:39 04/25/20 18:40 Temperature Pulse Rate 91 91 91 Respiratory Rate 28 H 28 H 28 H Blood Pressure Pulse Oximetry 97 04/25/20 19:31 04/25/20 20:00 04/25/20 20:47 Temperature 98.7 F Pulse Rate 93 95 105 H Respiratory Rate 28 H 20 Blood Pressure 123/81 119/89 Pulse Oximetry 98 97 04/25/20 20:49 04/25/20 20:59 04/25/20 21:00 Temperature Pulse Rate 99 102 H 102 H Respiratory Rate 28 H 28 H 28 H Blood Pressure 134/86 Pulse Oximetry 04/25/20 21:01 04/25/20 22:00 04/25/20 23:05 Temperature 99.5 F Pulse Rate 101 H 101 H 100 Respiratory Rate 28 H 28 H Blood Pressure 132/89 Pulse Oximetry 93 95 04/25/20 23:10 04/26/20 00:00 04/26/20 00:15 Temperature 100.1 F H Pulse Rate 100 103 H 102 H Respiratory Rate 28 H 28 H 28 H Blood Pressure 134/82 134/82 Pulse Oximetry 95 95 04/26/20 00:20 04/26/20 00:21 04/26/20 00:22 Temperature 100 F H Pulse Rate 101 H 101 H Respiratory Rate 28 H 28 H Blood Pressure 134/82 Pulse Oximetry 04/26/20 00:24 04/26/20 00:50 04/26/20 01:08 Temperature 99.5 F Pulse Rate 101 H 96 Respiratory Rate 28 H 28 H Blood Pressure Pulse Oximetry 94 04/26/20 01:09 04/26/20 02:00 04/26/20 02:52 Temperature 99.4 F Pulse Rate 94 91 90 Respiratory Rate 28 H 28 H Blood Pressure 120/78 120/78 Pulse Oximetry 94 94 04/26/20 02:59 04/26/20 03:17 04/26/20 03:41 Temperature Pulse Rate 92 90 91 Respiratory Rate 28 H 28 H 28 H Blood Pressure Pulse Oximetry 94 04/26/20 03:50 04/26/20 03:55 04/26/20 04:00 Temperature Pulse Rate 91 91 93 Respiratory Rate 28 H 28 H Blood Pressure 103/76 Pulse Oximetry 98 98 04/26/20 04:19 04/26/20 05:13 04/26/20 05:14 Temperature Pulse Rate 91 91 96 Respiratory Rate 28 H Blood Pressure 103/76 Pulse Oximetry 96 94 04/26/20 05:17 04/26/20 06:00 04/26/20 06:31 Temperature 99.9 F H 99.9 F H Pulse Rate 92 93 Respiratory Rate 28 H 28 H Blood Pressure 109/66 104/73 Pulse Oximetry 94 04/26/20 06:34 04/26/20 06:36 04/26/20 08:00 Temperature 99.5 F Pulse Rate 93 94 94 Respiratory Rate 28 H 28 H 28 H Blood Pressure 104/73 98/64 L Pulse Oximetry 93 04/26/20 08:01 04/26/20 08:18 04/26/20 08:30 Temperature Pulse Rate 94 94 88 Respiratory Rate 28 H 28 H Blood Pressure Pulse Oximetry 94 04/26/20 09:58 04/26/20 10:00 04/26/20 10:09 Temperature 98.7 F Pulse Rate 94 88 88 Respiratory Rate 28 H 28 H 28 H Blood Pressure 104/73 91/70 L Pulse Oximetry 95 94 04/26/20 12:00 04/26/20 12:15 04/26/20 12:24 Temperature 98.9 F Pulse Rate 88 88 88 Respiratory Rate 28 H 28 H
[2020-04-26] MEDS: polyethylene glycoL 3350 17 GM POWD.PACK PO (17:29)
[2020-04-26 17:49] LABS: Glucose Point of Care 116 (65-105)
[2020-04-26] MEDS: SODIUM CHLORIDE NASAL GEL 14.1 GM 1 APPLIC NASAL (20:17)
[2020-04-27] VITALS (59 sets, daily range): BP systolic 107–140; BP diastolic 63–88; PULSE 82–120; RESP 25–35; TEMP 36.6–37.9; O2SAT 85–94
[2020-04-27] MEDS: PROPOFOL IV EMULSION 100 ML 24.41 MG IV CONT ×2 (00:23→04:50)
[2020-04-27 00:50] LABS: Glucose Point of Care 159 (65-105)
[2020-04-27] MEDS: EPOPROSTENOL SODIUM 0.5 MG VIAL 1 MG INHALATION ×4 (04:31→19:23)
[2020-04-27 04:55] LABS: pH ABG 7.304 (7.350-7.450)
[2020-04-27 04:56] LABS: Base Excess ABG 6.7 mEq/l (+/-2.0); HCO3 ABG 34.9 mEq/l (22.0-26.0); PCO2 ABG 71.8 mmHg (35.0-45.0); PO2 ABG 65.7 mmHg (80.0-100.0)
[2020-04-27 04:57] LABS: Alveolar/Arterial O2 Gradient 575.5 mmHg; Oxygen Saturation ABG 90.1 % (95.0-100.0); Total Hemoglobin 10.6 g/dL (12.0-18.0)
[2020-04-27 04:58] LABS: Carboxyhemoglobin 0.3 % THb (0-2.0); Oxygen Content ABG 13.6 %vol (16.0-22.0); Oxyhemoglobin 90.8 % THb (90.0-100.0)
[2020-04-27 04:59] LABS: Device VENTILATOR; Fractional Inspired Oxygen 100 %; Methemoglobin ABG 0.2 %THb (0-1.5); Modified Allen's Test Unable to perform; PO2 FiO2 Ratio Arterial Blood 0.66 %; Reduced Hemoglobin 8.7 %THb (0-5.0); Site Drawn LEFT RADIAL
[2020-04-27 05:00] LABS: Arterial Blood Gas PEEP 14 cmH2O; Arterial Blood Gas Tidal Volume 400 ml; Arterial Blood Gas Vent Mode CMV; Arterial Blood Gas Ventilator rate 28 /MIN
[2020-04-27 05:23] LABS: Hematocrit 25.1 % (42.0-52.0); Hemoglobin 8.1 g/dL (14.0-18.0); Mean Corpuscular HGB Conc 32.3 g/dl (32-36); Mean Corpuscular Hemoglobin 31.4 pg (26-34); Mean Corpuscular Volume 97.3 fl (80-100); Mean Platelet Volume 10.4 fl (7.4-10.4); Platelet Count Result 422 k/mm3 (150-375); Red Blood Count 2.58 M/mm3 (4.6-6.20); Red Cell Distribution Width 13.3 % (11.5-14.5); White Blood Count 17.4 K/mm3 (4.5-10.0)
[2020-04-27 05:43] LABS: Alanine Aminotransferase 58 U/L (4-50); Albumin Level 2.5 g/dL (3.5-5.1); Alkaline Phosphatase 430 U/L (38-126); Anion Gap 3 mmol/L (8-16); Aspartate Amino Transferase 71 U/L (17-59); Bilirubin,Total 1.3 mg/dL (0.2-1.3); Blood Urea Nitrogen 18 mg/dL (9-20); Calcium 7.9 mg/dL (8.4-10.2); Carbon Dioxide 37 mmol/L (22-30); Chloride 83 mmol/L (98-107); Estimated CRCL calculation 115 ml/min; Estimated Glomerular Filt Rate > 60; Glucose 160 mg/dL (75-110); Lactate Dehydrogenase 964 U/L (313-618); Phosphorus 4.2 mg/dL (2.5-4.5); Potassium 4.7 mmol/L (3.4-5.0); Sodium 123 mmol/L (137-145)
[2020-04-27 05:45] LABS: D Dimer 3.31 ug/mL (<0.48)
--- NOTE | 2020-04-27 05:52 | ECG_ITS ---
Measurements Intervals [place] Rate: 108 P: 46 [place]: 136 QRS: 16 QRSD: 92 T: 11 QT: 313 QTc: 421 Interpretive Statements SINUS TACHYCARDIA BORDERLINE T WAVE ABNORMALITY- INFERIOR LEADS ABNORMAL ECG Electronically Signed On 04-27-2020 9:29:11 PACK TRAIN DRIVER by Darnell Joe D.O.
[2020-04-27] MEDS: CENTRAL LINE FLUSH 10 ML IV PUSH ×3 (05:53→20:56)
[2020-04-27] MEDS: LEVOTHYROXINE SODIUM INJ 100 MCG/5 ML VIAL 50 MCG IV PUSH (05:53)
[2020-04-27] MEDS: ADENOSINE IV SOLN 6 MG/2 ML VIAL IV PUSH (05:53)
--- NOTE | 2020-04-27 05:53 | PM.EVENT ---
Event Note Event Note Event Note: This is a 50-year-old male who is being treated for acute respiratory failure and COVID pneumonia who this morning suddenly went into SVT with sustained heart rates in the 160s to 170s. we placed the patient on director of cardiac rehabilitation and administered 6 mg of adenosine. The patient's heart rate slowed down enough to be able to see any irregularly irregular heart rhythm without any P waves. Shortly afterwards the patient appear to go back in to sinus rhythm briefly before going back into an SVT with heart rates in the 170s. The patient is on anticoagulation with Lovenox twice a day. I have consulted Cardiology, Dr. Lantigua and she agrees with my plan to start the patient on Amiodarone IV for rate control.
--- NOTE | 2020-04-27 05:55 | PC.NURSE ---
Dr. Guillen notified and in presence of tachycardia. Adenosine 6mg IV was given per Dr. Guillen. Patient now ST 104. Awaiting further orders.
[2020-04-27] MEDS: AMIODARONE 360 MG/D5W 200 ML 360 MG/200 ML BAG 33.33 MG IV CONT (06:31)
[2020-04-27] MEDS: AMIODARONE 150 MG/D5W 100 ML 150 MG/100 ML BAG 600 MG IV CONT (06:32)
[2020-04-27 06:40] LABS: Magnesium 1.8 mg/dL (1.6-2.3)
[2020-04-27] MEDS: PROPOFOL IV EMULSION 100 ML 27.12 MG IV CONT ×5 (06:46→20:40)
[2020-04-27] MEDS: FENTANYL 2,500MCG/NS250ML(*CRX 2,500 MCG/250 ML BAG 20 MCG IV CONT ×2 (06:47→19:34)
[2020-04-27 06:53] LABS: CRP 40.9 mg/dL (<1.0)
[2020-04-27] MEDS: NEOMYCIN/POLYMYXIN/BACITRACIN OINTMENT 15 GM TUBE 1 APPLIC TOPICAL (07:50)
[2020-04-27] MEDS: ENOXAPARIN 40 MG/0.4 ML SYRINGE SUB-Q ×2 (07:50→20:48)
[2020-04-27] MEDS: PANTOPRAZOLE SODIUM IV 40 MG VIAL IV PUSH (07:51)
[2020-04-27 08:30] LABS: Ferritin > 2000.00 ng/mL (17.9-464)
--- NOTE | 2020-04-27 08:31 | WPDINTPN ---
Progress Note: A&P Assessment and Plan (1) New onset a-fib: Code(s): I48.91 - Unspecified atrial fibrillation Status: Acute (2) Acute respiratory failure with hypoxemia: Code(s): J96.01 - Acute respiratory failure with hypoxia Status: Acute Assessment and Plan: Patient was COVID-19 pneumonia who was admitted on 04/04/2020 and intubated on 04/17/2020. Intubated 04/17/2020 currently on AC/CMV ventilation with PEEP of 14 rate of 28 100% FiO2. Patient is on fentanyl Versed and propofol for sedation. He was placed on Nimbex 04/17/2020. He remains on Nimbex. On 04/25/2020 patient was remaining hypoxic and Flolan was initiated. The patient remains on Flolan. The patient was proned 04/27/2020 and did not tolerate. He had desaturations to the low 70s but recovered with repositioning to supine. Continue bronchodilator (3) Pneumonia due to COVID-19 virus: Code(s): U07.1 - COVID-19; J12.89 - Other viral pneumonia Status: Acute Assessment and Plan: The patient was diagnosed 03/28/2020 with COVID admitted on 04/04/2020 with acute hypoxic respiratory failure. His chest x-ray demonstrated diffuse lung disease consistent with pneumonia pulmonary edema or ARDS. He was intubated on 04/17/2020. He completed course of antibiotics with azithromycin and Rocephin on 04/05/2020 Remdesivir course was initiated 04/05/2020 in his subsequently completed. Decadron course was initiated 04/06/2020 and has subsequently been completed. He received 2 units of, pleasant plasma 04/06/2020 and 04/08/2020. He remains on airborne droplet and contact precautions. His inflammatory markers are being trended. The patient was placed in prone position 04/27/2020 with rapid worsening respiratory status and desaturations to the low 70's. The patient is now supine in his saturations have recovered to the upper 80s-90. (4) Acute renal failure: Qualifiers: Acute renal failure type: unspecified Qualified Code(s): N17.9 - Acute kidney failure, unspecified Code(s): N17.9 - Acute kidney failure, unspecified Status: Resolved Assessment and Plan: His creatinine peaked at 2.1 and has subsequently normalized to 0.9. His potassium was elevated 04/26/2020 least received a dose of Kayexalate with normalization of his potassium. Fluid positive since admission given stable kidney function at this time will give the patient a dose of Diamox to attempt diuresis. Additional Plan 30 minutes spent in critical care activities. This case had a high probability of a clinically significant, sudden, or life threatening deterioration of this patient's condition which required my full and direct attention, intervention and personal management. Subjective Date/time seen: 04/27/20 11:30 No significant changes overnight. He was last febrile 04/27/2020 at 4:00 a.m. Review of Systems Review of Systems: ROS unobtainable: Yes unobtainable due to endotracheal tube Exam Narrative: Exam Narrative: PHYSICAL EXAM: General: Well-developed, overweight, acutely ill-appearing HEENT: ET tube in OG tube in place, head is normocephalic atraumatic, pupils are equal and sluggishly reactive Respiratory: Coarse crackles sounds posteriorly patient examined in prone position Cardiovascular: Regular rate, regular rhythm, 2+ bilateral radial pedal pulses Gastrointestinal: Distended, soft, positive bowel sounds Skin: Maceration of the skin of the buttocks along the gluteal fold, warm to touch Musculoskeletal: Anasarca, mild cyanosis of nail beds Neurological: Intubated, sedated and on paralytic Psychiatric: Unable to assess : Corley catheter in place draining clear yellow urine Hematologic/lymphatic: No bruising or petechiae Objective Data Vital Signs Vital Signs: Vital Signs - 24 hr 04/26/20 09:58 04/26/20 10:00 04/26/20 10:09 Temperature 98.7 F Pulse Rate 94 88 88 Respiratory Rate 28 H 28 H 28 H Blood
[2020-04-27 10:00] LABS: Hepatitis B Surface Antigen Negative (Negative)
[2020-04-27 10:05] LABS: HAV RESULT Negative (Negative); Hepatitis B Core IgM Result Negative (Negative)
[2020-04-27 10:17] LABS: Hepatitis C Virus Antibody Negative (Negative)
[2020-04-27] MEDS: acetaZOLAMIDE TAB 250 MG TABLET FEED TUBE (11:31)
--- NOTE | 2020-04-27 11:59 | PM.CNCAR ---
Assessment and Plan Additional Plan For now I will keep the patient on the maintenance dose of amiodarone. I will review his rhythm strips each day there are no arrhythmias by tomorrow I will probably stop this since it is almost certainly is a response to the ARDS related to his braga virus infection. Andrew Sun MD [facility] History of Present Illness History of Present Illness Consult date/time: 04/27/20 11:59 Consult reason: atrial fibrillation Reason For Visit: COVID 19 Pneumonia with Hypoxia Narrative: This is a 50-year-old patient I am seeing at the request of the hospitalist reportedly because of an episode of atrial fibrillation which occurred during the spa consultant last night. According to the chart he has been in the hospital here at [facility] since about 25 days ago and has been hospitalized in the ICU because he has severe braga virus infection. The patient has picture of ARDS sinus chest x-ray and has been intubated believe since the . He has no history of cardiac problems an echocardiogram that was done several days ago did not show any functional or structural cardiac abnormalities. Yesterday apparently a rapid response was called on him because he was tachycardic. The noted the chart indicates that he was in a supraventricular tachycardia of some sort he was given adenosine and then had appeared to be evident that he was in atrial fibrillation so he was treated with intravenous amiodarone. Subsequently he returned to sinus rhythm. I look through the record in the telemetry strips on the chart and I see no recorded rhythm strips of any of this. I therefore cannot have a definitive opinion on the nature of the arrhythmia that occurred last evening since it does not appear to be recorded on the chart. He is bolused with amiodarone received drip he is currently on a maintenance infusion at 0.5. According to the record there is no previous history of cardiac problems prior to his admission he had dyslipidemia and hypothyroidism. Review of Systems Review of Systems: ROS unobtainable: Yes unobtainable due to endotracheal tube PMFSH Past Medical History Medical History Adult hypothyroidism Benign essential hypertension Chronic GERD Hyperlipidemia Family History Family History Mother Family history of elevated blood lipids Diabetes mellitus Family history of diabetes mellitus in first degree relative Family history of obesity Family history of hyperthyroidism Hypertension Cerebrovascular accident Atrial fibrillation Sleep apnea Father Family history of elevated blood lipids Hypertension Other Carcinoma of colon Social History Social History Smoking status: Never smoker Second hand tobacco smoke exposure: No Alcohol intake: never Substance use: never Substance use type: does not use Gender identity (if verbalized by the patient): Male Spiritual care concerns: No Meds Home Medications and Allergies Home Medications Medication Instructions Recorded Confirmed Type lansoprazole 30 mg delayed 30 mg PO DAILY #90 tablet 03/16/20 04/04/20 Rx release,disintegrating tablet levothyroxine 100 mcg tablet 100 mcg PO DAILY #90 tablet 03/16/20 04/04/20 Rx olmesartan 40 mg tablet 40 mg PO DAILY #90 tablet 03/16/20 04/04/20 Rx pravastatin 40 mg tablet 40 mg PO DAILY #90 tablet 03/16/20 04/04/20 Rx Allergies Allergy/AdvReac Type Severity Reaction Status Date / Time No Known Allergies Allergy Verified 04/04/20 17:55 Vital Signs Vital Signs - 24 hr 04/26/20 12:00 04/26/20 12:15 04/26/20 12:24 Temperature 37.2 C Pulse Rate 88 88 88 Respiratory Rate 28 H 28 H 28 H Blood Pressure 102/75 Pulse Oximetry 97 04/26/20 12:34 04/26/20 12:35 04/26/20 14:00 Temperature 37.4 C Pulse Rate 88 88 90 Respiratory
[2020-04-27 12:07] LABS: Glucose Point of Care 167 (65-105)
[2020-04-27] MEDS: AMIODARONE 360 MG/D5W 200 ML 360 MG/200 ML BAG 16.67 MG IV CONT (13:03)
--- NOTE | 2020-04-27 13:04 | PCDIET ---
Nutrition Follow-Up Complete: Nutrition Diagnosis: Inadequate oral intake related to pneumonia as evidenced by NPO status, weight loss prior to admission. Nutrition Goal: Patient to meet estimated nutritional needs. Goal in progress. Patient intermittently proned. Vital 1.2 advancing toward goal of 60mL/hr without reported issues. Continues on 30mL water flush every 4 hours. Last recorded weight is 101.1 kg which is increased from last review. +I/O. Bowel Motility: No documented BM - patient on Miralax and Dulcolax prn. Labs Reviewed: Hgb (8.1), Hct (25.1), Glu (160), Na (123), Alb (2.5) Meds Noted: Diamox, Albuterol, Versed, Dulcolax, Nimbex, Protonix, Fentanyl, Novolog, Miralax, Atrovent, Synthroid, Lasix, Propofol (rate of 27.12mL/hr provides 715kcal per day) Additional Notes: Buttocks macerated. Nose abrasion. Will continue to monitor with same goal. Nutrition Monitoring and Evaluation: Follow up every Thursday/Thursday.
[2020-04-27 17:24] LABS: Glucose Point of Care 177 (65-105)
--- NOTE | 2020-04-27 18:30 | PM.IMPN ---
Progress Note: A&P Assessment and Plan (1) Acute respiratory failure with hypoxemia: Code(s): J96.01 - Acute respiratory failure with hypoxia Status: Acute Assessment and Plan: Patient on ventilator support. Management as per cc/int (2) Pneumonia due to COVID-19 virus: Code(s): U07.1 - COVID-19; J12.89 - Other viral pneumonia Status: Acute Assessment and Plan: Completed Remdesivir , Azithromycin and Rocephin. Had convalescent plasma as well. Subjective Date/time seen: 04/27/20 18:30 On ventilator support. Review of Systems Review of Systems: Narrative: Unable to obtain as patient is on vent support. Exam Narrative: Exam Narrative: not examined seen thru glass door, discussed with and updated with staff. Objective Data Vital Signs Vital Signs: Vital Signs - 24 hr 04/26/20 19:04 04/26/20 19:29 04/26/20 19:30 Temperature Pulse Rate 98 102 H 102 H Respiratory Rate 28 H 28 H Blood Pressure Pulse Oximetry 93 93 04/26/20 19:44 04/26/20 20:00 04/26/20 20:24 Temperature 100.3 F H Pulse Rate 98 97 95 Respiratory Rate 28 H 28 H 28 H Blood Pressure 112/74 112/74 Pulse Oximetry 93 04/26/20 20:54 04/26/20 21:04 04/26/20 21:40 Temperature Pulse Rate 97 97 94 Respiratory Rate 28 H 28 H Blood Pressure Pulse Oximetry 93 04/26/20 22:00 04/26/20 23:40 04/26/20 23:54 Temperature 99.6 F Pulse Rate 10 L 99 Respiratory Rate 28 H 28 H Blood Pressure 105/66 Pulse Oximetry 93 92 92 04/27/20 00:00 04/27/20 00:04 04/27/20 00:23 Temperature 99.8 F H Pulse Rate 100 99 98 Respiratory Rate 28 H 28 H 28 H Blood Pressure 111/73 111/73 Pulse Oximetry 92 04/27/20 01:40 04/27/20 02:00 04/27/20 03:40 Temperature 99.9 F H 100.3 F H Pulse Rate 99 98 104 H Respiratory Rate 28 H Blood Pressure 113/75 Pulse Oximetry 93 91 91 04/27/20 04:00 04/27/20 04:29 04/27/20 04:30 Temperature 100.1 F H Pulse Rate 104 H 107 H 103 H Respiratory Rate 28 H 28 H 28 H Blood Pressure 116/78 Pulse Oximetry 87 L 90 04/27/20 04:40 04/27/20 04:50 04/27/20 04:51 Temperature Pulse Rate 104 H 107 H 115 H Respiratory Rate 28 H 28 H Blood Pressure Pulse Oximetry 91 04/27/20 04:52 04/27/20 04:59 04/27/20 05:04 Temperature Pulse Rate 108 H 110 H 120 H Respiratory Rate 28 H 28 H 28 H Blood Pressure 124/77 Pulse Oximetry 04/27/20 06:00 04/27/20 06:30 04/27/20 06:31 Temperature 99.4 F 99.1 F Pulse Rate 104 H 102 H 102 H Respiratory Rate 28 H 28 H Blood Pressure 116/78 115/77 115/77 Pulse Oximetry 87 L 89 L 04/27/20 06:32 04/27/20 06:46 04/27/20 06:47 Temperature Pulse Rate 104 H 97 95 Respiratory Rate 28 H 28 H Blood Pressure 115/77 Pulse Oximetry 04/27/20 08:00 04/27/20 08:25 04/27/20 09:05 Temperature 98.2 F Pulse Rate 87 87 87 Respiratory Rate 28 H 28 H Blood Pressure 109/74 107/74 Pulse Oximetry 93 94 04/27/20 09:15 04/27/20 10:00 04/27/20 10:28 Temperature Pulse Rate 87 89 90 Respiratory Rate 28 H 28 H 28 H Blood Pressure 111/75 Pulse Oximetry 94 93 04/27/20 10:30 04/27/20 11:30 04/27/20 11:40 Temperature Pulse Rate 90 88 93 Respiratory Rate 28 H 28 H Blood Pressure Pulse Oximetry 87 L 86 L 04/27/20 12:00 04/27/20 12:56 04/27/20 12:57 Temperature 99.7 F H Pulse Rate 94 91 91 Respiratory Rate 25 H 28 H 28 H Blood Pressure 140/79 129/76 Pulse Oximetry 85 L 04/27/20 12:59 04/27/20 13:03 04/27/20 14:00 Temperature 98.5 F Pulse Rate 91 91 86 Respiratory Rate 28 H 28 H Blood Pressure 126/76 118/72 Pulse Oximetry 88 L 04/27/20 14:05 04/27/20 15:48 04/27/20 16:00 Temperature 98.2 F Pulse Rate 88 83 84 Respiratory Rate 28 H 28 H 28 H Blood Pressure 115/68 Pulse Oximetry 87 L 89 L 89 L 04/27/20 16:38 04/27/20 16:55 04/27/20 16:57 Temperature Pulse Rate 86 86 85 Respiratory Rate 35 H 35 H 35 H Blood Pressure
[2020-04-27] MEDS: SODIUM CHLORIDE NASAL GEL 14.1 GM 1 APPLIC NASAL (20:50)
[2020-04-28] VITALS (30 sets, daily range): BP systolic 124–152; BP diastolic 72–91; PULSE 0–120; RESP 28–29; TEMP 37.2–37.4; O2SAT 0–83
[2020-04-28] MEDS: PROPOFOL IV EMULSION 100 ML 27.12 MG IV CONT ×2 (00:19→04:09)
[2020-04-28 00:32] LABS: Alveolar/Arterial O2 Gradient 576.6 mmHg; Base Excess ABG 3.4 mEq/l (+/-2.0); Carboxyhemoglobin 0.3 % THb (0-2.0); Fractional Inspired Oxygen 100 %; HCO3 ABG 32.5 mEq/l (22.0-26.0); Methemoglobin ABG 0.2 %THb (0-1.5); Oxygen Content ABG 11.9 %vol (16.0-22.0); Oxyhemoglobin 85.3 % THb (90.0-100.0); PO2 ABG 57.2 mmHg (80.0-100.0); PO2 FiO2 Ratio Arterial Blood 0.57 %; Reduced Hemoglobin 14.2 %THb (0-5.0); Total Hemoglobin 9.9 g/dL (12.0-18.0)
[2020-04-28 00:35] LABS: Modified Allen's Test Pass; Oxygen Saturation ABG 82.9 % (95.0-100.0); PCO2 ABG 79.2 mmHg (35.0-45.0); Site Drawn RIGHT RADIAL; pH ABG 7.231 (7.350-7.450)
[2020-04-28 00:36] LABS: Arterial Blood Gas PEEP 14 cmH2O; Arterial Blood Gas Tidal Volume 400 ml; Arterial Blood Gas Vent Mode CMV; Arterial Blood Gas Ventilator rate 28 /MIN; Device VENTILATOR
[2020-04-28] MEDS: AMIODARONE 360 MG/D5W 200 ML 360 MG/200 ML BAG 16.67 MG IV CONT (00:39)
[2020-04-28] MEDS: EPOPROSTENOL SODIUM 0.5 MG VIAL 1 MG INHALATION ×2 (00:52→05:48)
[2020-04-28] MEDS: FUROSEMIDE INJ 100 MG/10 ML VIAL (01:16)
--- NOTE | 2020-04-28 04:51 | PC.NURSE ---
Called son's Father Maged and made aware that patient continues to desaturate and we are not able to maintain saturation and that patient is maxed out on sedation and vent settings. Father wishes that Avtar be made a DNR but continue treatment. Will continue to update Father if anything changes.
[2020-04-28] MEDS: CENTRAL LINE FLUSH 10 ML IV PUSH (05:26)
[2020-04-28] MEDS: LEVOTHYROXINE SODIUM INJ 100 MCG/5 ML VIAL 50 MCG IV PUSH (05:26)
[2020-04-28] MEDS: ALBUTEROL SULFATE NEB 2.5 MG/3 ML INH 15 MG INHALATION (05:37)
[2020-04-28 05:41] LABS: Hematocrit 27.1 % (42.0-52.0); Hemoglobin 8.6 g/dL (14.0-18.0); Mean Corpuscular HGB Conc 31.7 g/dl (32-36); Mean Corpuscular Hemoglobin 31.9 pg (26-34); Mean Corpuscular Volume 100.4 fl (80-100); Mean Platelet Volume 10.5 fl (7.4-10.4); Platelet Count Result 504 k/mm3 (150-375); Red Cell Distribution Width 13.4 % (11.5-14.5); White Blood Count 23.2 K/mm3 (4.5-10.0)
[2020-04-28 05:55] LABS: Alanine Aminotransferase 60 U/L (4-50); Albumin Level 2.6 g/dL (3.5-5.1); Alkaline Phosphatase 485 U/L (38-126); Anion Gap 6 mmol/L (8-16); Aspartate Amino Transferase 74 U/L (17-59); Bilirubin,Total 1.4 mg/dL (0.2-1.3); Blood Urea Nitrogen 20 mg/dL (9-20); Calcium 7.9 mg/dL (8.4-10.2); Carbon Dioxide 35 mmol/L (22-30); Chloride 80 mmol/L (98-107); Estimated CRCL calculation 103 ml/min; Estimated Glomerular Filt Rate > 60; Glucose 262 mg/dL (75-110); Phosphorus 6.6 mg/dL (2.5-4.5); Potassium 4.3 mmol/L (3.4-5.0); Sodium 121 mmol/L (137-145)
[2020-04-28 06:00] LABS: Alveolar/Arterial O2 Gradient 561.5 mmHg; Base Excess ABG 3.5 mEq/l (+/-2.0); Fractional Inspired Oxygen 100 %; Oxygen Content ABG 11.9 %vol (16.0-22.0); PO2 ABG 56.2 mmHg (80.0-100.0); PO2 FiO2 Ratio Arterial Blood 0.56 %
[2020-04-28 06:03] LABS: Device VENTILATOR; Modified Allen's Test Unable to perform; PCO2 ABG 95.3 mmHg (35.0-45.0); Site Drawn RIGHT RADIAL
[2020-04-28 06:04] LABS: Arterial Blood Gas PEEP 16 cmH2O; Arterial Blood Gas Vent Mode PRESSURE CONTROL; Arterial Blood Gas Ventilator rate 28 /MIN; Peak Inspiratory Pressure 34 cmH2O
[2020-04-28 06:30] LABS: Glucose Point of Care 193 (65-105)
[2020-04-28] MEDS: INSULIN ASPART (*BKC) 100 UNITS/ML SUB-Q (06:45)
[2020-04-28 06:52] LABS: Glucose Point of Care 262 (65-105)
--- NOTE | 2020-04-28 08:20 | PC.NURSE ---
Call place to patient's dad to give update on his condition at this time. Patient o2 sat's 47% and pulse rate in the 30's.
--- NOTE | 2020-04-28 13:30 | WPDINTPN ---
Progress Note: A&P Assessment and Plan (1) Acute respiratory failure with hypoxemia: Code(s): J96.01 - Acute respiratory failure with hypoxia Status: Acute Assessment and Plan: patient with COVID-19 19 pneumonia, - Patient was intubated on on 04/17/2020 . - CMV mode of ventilation, peep of 16 and 100% FiO2. -patient was desaturating into the 70s was being bagged. Patient became bradycardic and eventually asystole. Patient was a do not resuscitate -patient had been on fentanyl, Versed neuromuscular blockade -updated father Maged Ambrocio regarding patient's (2) Pneumonia due to COVID-19 virus: Code(s): U07.1 - COVID-19; J12.89 - Other viral pneumonia Status: Acute Assessment and Plan: patient admitted on 04/04/2020 with increasing shortness of breath, fevers, chills and cough. SARS-CoV-2 PCR PCR was positive on 03/28/2020 - chest x-ray shows - Diffuse lung disease with slight improvement, consistent with pneumonia and/or pulmonary edema and/or acute respiratory distress syndrome (ARDS). - completed course of azithromycin and ceftriaxone which was started on 04/05/2020. - Will check procalcitonin level. Low threshold for initiation of antibiotics if further clinical data suggest evidence of bacterial secondary infection. - Completed course of Remdesivir ( started on 04/05/2020) - completed dexamethasone (started on 04/06/2020). resuming dexamethasone may not give him any additional benefit because he is almost 25 days past his actual diagnosis of COVID pneumonia. - received a unit of convalescent COVID-19 plasma on 04/06/2020 And 04/08/2020 - continue airborne, droplet, contact isolation and precautions - inflammatory markers are elevated, will continue to trend (3) Acute renal failure: Qualifiers: Acute renal failure type: unspecified Qualified Code(s): N17.9 - Acute kidney failure, unspecified Code(s): N17.9 - Acute kidney failure, unspecified Status: Resolved Assessment and Plan: acute kidney injury resolved, creatinine of 0.7, - Continue to monitor renal functions and electrolytes. (4) Chronic GERD: Code(s): K21.9 - Gastro-esophageal reflux disease without esophagitis Status: Chronic Assessment and Plan: continue IV PPI (5) Adult hypothyroidism: Code(s): E03.9 - Hypothyroidism, unspecified Status: Chronic Assessment and Plan: continue levothyroxine IV with 1/2 of regular dose (6) Benign essential hypertension: Code(s): I10 - Essential (primary) hypertension Status: Chronic Assessment and Plan: blood pressure is within normal limits, will hold antihypertensives at this time. He normally takes olmesartan. (7) Dietary counseling and surveillance: Code(s): Z71.3 - Dietary counseling and surveillance Status: Acute Assessment and Plan: tolerating tube feeds stress ulcer prophylaxis: Protonix (8) DVT prophylaxis: Code(s): Z29.9 - Encounter for prophylactic measures, unspecified Status: Acute Assessment and Plan: high D-dimer level. patient is on intermediate does of Lovenox at 40 mg Sub-cu Q12H Additional Plan code status: Do not resuscitate critical care time spent: 36 minutes Due to a high probability of clinically significant, life threatening deterioration, the patient required my highest level of preparedness to intervene emergently and I personally spent this critical care time directly and personally managing the patient. This critical care time included obtaining a history; examining the patient; pulse oximetry; ordering and review of studies; arranging urgent treatment with development of a management plan; evaluation of patient's response to treatment; frequent reassessment; and discussions with other providers. It was exclusive of separately billable procedures and treating other patients an
--- NOTE | 2020-05-06 21:34 | PM.DDS ---
Discharge Sum: Prov Provider Primary care physician: Avtar Fu MD Admitting provider: Rubio Guillen MD Consults: 04/05/20 16:45 Consult to Dietitian Routine Reason for Consult:: TPN 04/06/20 Consult to Physician Routine Comment: Consulting Provider: Zeina Magaña Reason for consultation: increasing o2 demands Has provider been notified: Yes Consult to Physician Routine Comment: MESSAGE LEFT WITH THE EXCHANGE Consulting Provider: Farrukh Christina research group director/MD group to consult: BESSY Reason for consultation: FAILED SWALLOW STUDY/COVID POSITIVE Has provider been notified: Yes 04/27/20 06:11 Consult to Physician Routine Comment: Consulting Provider: Rosa Lantigua research group director/MD group to consult: Cardiology Reason for consultation: New Onset Atrial Fibrillation Has provider been notified: Yes Discharge Sum: Diag Contributing Factors (1) Pneumonia due to COVID-19 virus: (2) Acute respiratory failure with hypoxemia: (3) ARDS (adult respiratory distress syndrome): (4) Respiratory disorder with ventilator dependence: Discharge Sum: Summary Date and Time Date of admission: 04/04/20 19:44 Date of : 04/28/20 Time of : 09:28 Summary Details: Patient was on 100% FiO2 on vent support had desaturation to the 70's was bagged subsequently became bradycardic as patient was a DNR he was let go. Additional Data Confirmation of as documented by pronouncing clinician: no pulse, no respirations, no heart sounds and pupils fixed and dilated Attending/PCP notified?: Yes Attending physician: Zeina Magaña MD Was code activated?: No Autopsy requested?: No document examiner notified?: No Organ bank notified?: Yes Advance directives: Yes Hospice patient?: No
== END 2020-04-28 08:45 | disposition expired | DRG 207 ==
LOC: ANHED 19:35 → ANHICU 04-05 13:53
PROVIDERS: Family Medicine; Internal Medicine; Internal Medicine Critical Care Medicine; Physician Assistant; Admitting Provider Family Medicine; Emergency Provider Family Medicine; PCP Family Medicine; Visit Provider Internal Medicine
DX: U07.1 COVID-19 (principal); J12.89 Other viral pneumonia; J80 Acute respiratory distress syndrome; A41.89 Other specified sepsis; R65.21 Severe sepsis with septic shock; N17.0 Acute kidney failure with tubular necrosis; N17.9 Acute kidney failure, unspecified; I47.1 Supraventricular tachycardia; Z66 Do not resuscitate; I10 Essential (primary) hypertension; E78.5 Hyperlipidemia, unspecified; E03.8 Other specified hypothyroidism; K21.9 Gastro-esophageal reflux disease without esophagitis; R74.8 Abnormal levels of other serum enzymes; E87.6 Hypokalemia; I48.91 Unspecified atrial fibrillation; I46.9 Cardiac arrest, cause unspecified; R13.10 Dysphagia, unspecified; R41.89 Other symptoms and signs involving cognitive functions and awareness
CPT/HCPCS: 31500; 36415; 36430; 36569; 36600; 71045; 71275; 76705; 80048; 80053; 80074; 82375; 82565; 82728; 82805; 83050; 83615; 83735; 84100; 84145; 84460; 84466; 84478; 85025; 85027; 85380; 85610; 85730; 86140; 86850; 86900; 86901; 87040; 87070; 87077; 87186; 87205; 87804; 92526; 92610; 93005; 94002; 94003; 94640; 96365; 96375; 99285; A9270; C1751; C8929; C9113; J0131; J0153; J0282; J0456; J0696; J1100; J1200; J1650; J1815; J1940; J2060; J2250; J2704; J2765; J3010; J3480; J7030; J7040; J7050; J7060; P9059; Q9957; Q9967